=== PATIENT | female | born 1950 | race Caucasian/White ===

== ENCOUNTER 2018-04-05 07:18 | Day surgery (SDC) | payer MEDICARE, OTHER, SELFPAY ==
--- NOTE | 2018-04-05 | PATH_ITS ---
[facility] Accession Number: [id number] . 01 Material submitted: . PART A: DUODENAL BIOPSY PART B: ANTRUM BIOPSY PART C: GE JUNCTION BIOPSY PART D: GASTRIC POLYP PART E: GASTRIC CARDIA BIOPSY . 02 Diagnosis: A. Duodenum, Biopsy: Duodenal mucosa with focal foveolar metaplasia, consistent with peptic duodenitis. Negative for active inflammation, features of sprue, dysplasia or malignancy. . B. Antrum, Biopsy: Gastric antral mucosa with no diagnostic abnormality. No evidence of Helicobacter organisms on H/E stain. Negative for intestinal metaplasia, dysplasia or malignancy. . C. Gastroesophageal Junction, Biopsy: Squamocolumnar junctional mucosa with no diagnostic abnormality. Negative for intestinal metaplasia, dysplasia or malignancy. . D. Gastric Polyp, Biopsy: Hyperplastic gastric polyp. No evidence of Helicobacter organisms on H/E stain. Negative for intestinal metaplasia, dysplasia or malignancy. . E. Gastric Cardia, Biopsy: Gastric oxyntic mucosa with no diagnostic abnormality. No evidence of Helicobacter organisms on H/E stain. Negative for intestinal metaplasia, dysplasia or malignancy. [facility]04/06/2018 . 02 Electronically signed: . Gil Pool MD, PhD, Pathologist NPI- [id number] . 01 Gross description: . Received are five formalin-filled containers, each labeled with the patient's name: . A. In a container labeled duodenal, the specimen consists of a 0.2 cm portion of tissue, entirely submitted in cassette A. B. In a container labeled antrum, the specimen consists of two 0.1-0.2 cm portions of tissue, entirely submitted in cassette B. C. In a container labeled GE junction, the specimen consists of three less than 0.1 cm to 0.1 cm portions of tissue, entirely submitted in cassette C. D. In a container labeled gastric polyp EGD, the specimen consists of two 0.2-0.3 cm portions of tissue, entirely submitted in cassette D. E. In a container labeled gastric cardia EGD, the specimen consists of a 0.3 cm portion of tissue, entirely submitted in cassette E. ([id number]) /FRR . 02 Pathologist provided ICD-10: K31.7, K29.80, K21.9 . 02 CPT . 498094, 688625, 845186, [id number], [id number] Performed at: 01 [facility] [address] [place] [address], [place], [place] [id number] MD Jose Ness MD Phone: [phone] Performed at: [address] [place] [id number] MD Fidel Martinez MD Phone: [phone]
[2018-04-05 07:45] VITALS: BP 137/94; PULSE 83; RESP 16; TEMP 36.4; O2SAT 92; BMI 40.8
[2018-04-05] MEDS: SODIUM CHLORIDE 0.9% 1,000 ML 200 ML IV (08:30)
--- NOTE | 2018-04-05 08:38 | PM.HP.1 ---
History of Present Illness Date Patient Seen: 04/05/18 Time Patient Seen: 08:38 Chief complaint: EGD COLONOSCOPY [id number] Narrative: Very pleasant 67-year-old lady with a history of Nelson's esophagus. She has had more hoarseness over the last several months. She is due for repeat Nelson's surveillance and we also need to evaluate the change in her voice. Additionally, she is due for screening colonoscopy. Patient History Surgical History History of third molar tooth extraction Status post delivery Status post colonoscopy Status post tonsillectomy and adenoidectomy Family & Social History Family History: Reviewed 04/05/18 by Cecilia Grider MD Social History: household members spouse Meds Home Medications Medication Instructions Recorded Confirmed Type ibuprofen [Advil] 400 mg PO BID #120 tab 05/26/17 Rx [Shingrix] 1 dose IM #1 dose 10/06/17 Rx pneumoc 13-luis conj-dip cr(PF) 0.5 ml IM X1 #1 ea 10/06/17 Rx [Prevnar 13 (PF)] [LIDO VISC/MAALOX 1:1] 5 ml OR QIDP PRN #200 ml 12/12/17 Rx hydrocodone-acetaminophen [[place]] 1 - 2 tab PO BID #60 tab 12/12/17 Rx cyclobenzaprine 10 mg PO QHS #30 tab 12/29/17 Rx gabapentin 800 mg PO TID #90 tab 01/16/18 Rx esomeprazole magnesium [Nexium] 40 mg PO BID #180 cap 02/13/18 Rx duloxetine 30 mg PO BID 04/05/18 04/05/18 History metoprolol tartrate 25 mg PO DAILY 04/05/18 04/05/18 History Allergies Allergy/AdvReac Type Severity Reaction Status Date / Time diphenhydramine AdvReac Severe severe Unverified 01/31/18 13:11 [DIPHENHYDRAMINE] anxiety. jittery, increase pulse Review of Systems Review of Systems All systems reviewed & are unremarkable except as noted in HPI and below Exam Vital Signs (past 8 hours): Vital Signs - 8 hr 04/05/18 07:45 Temperature 97.6 F Pulse Rate 83 Respiratory Rate 16 Blood Pressure 137/94 H Pulse Oximetry 92 Pulse Oximetry 92 Oxygen Delivery Method Room Air Narrative Exam Narrative: Very pleasant lady in no significant distress HEENT normocephalic and atraumatic, pupils equal round reactive to light accommodation with anicteric sclera Lungs: Clear to auscultation bilaterally Heart: Regular rate and rhythm without murmur Abdomen: Soft, obese, active bowel sounds Extremities: Warm and well perfused with 1+ edema bilaterally Assessment & Plan Plan: Assessment/Plan Narrative: Personal history of Nelson's esophagus and time for an [facility] screening colonoscopy. This is in the setting recent changes in voice. We discussed the risks and benefits of EGD and colonoscopy and the patient has expressed desire to have the procedure
--- NOTE | 2018-04-05 08:41 | P.HP_ITS ---
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 She has had more hoarseness over the last several months. She is due for repeat Nelson's surveillance and we also need to evaluate the change in her voice. Additionally, she is due for screening colonoscopy. Patient History Surgical History History of third molar tooth extraction Status post delivery Status post colonoscopy Status post tonsillectomy and adenoidectomy Family & Social History Family History: Reviewed 04/05/18 by Cecilia Grider MD Social History: household members spouse Meds Home Medications Medication Instructions Recorded Confirmed Type ibuprofen [Advil] 400 mg PO BID #120 tab 05/26/17 Rx [Shingrix] 1 dose IM #1 dose 10/06/17 Rx pneumoc 13-luis conj-dip cr(PF) 0.5 ml IM X1 #1 ea 10/06/17 Rx [Prevnar 13 (PF)] [LIDO VISC/MAALOX 1:1] 5 ml OR QIDP PRN #200 ml 12/12/17 Rx hydrocodone-acetaminophen [[place]] 1 - 2 tab PO BID #60 tab 12/12/17 Rx cyclobenzaprine 10 mg PO QHS #30 tab 12/29/17 Rx gabapentin 800 mg PO TID #90 tab 01/16/18 Rx esomeprazole magnesium [Nexium] 40 mg PO BID #180 cap 02/13/18 Rx duloxetine 30 mg PO BID 04/05/18 04/05/18 History metoprolol tartrate 25 mg PO DAILY 04/05/18 04/05/18 History Allergies Allergy/AdvReac Type Severity Reaction Status Date / Time diphenhydramine AdvReac Severe severe Unverified 01/31/18 13:11 [DIPHENHYDRAMINE] anxiety. jittery, increase pulse Review of Systems Review of Systems All systems reviewed & are unremarkable except as noted in HPI and below Exam Vital Signs (past 8 hours): Vital Signs - 8 hr 3 04/05/18 07:45 Temperature 97.6 F Pulse Rate 83 Respiratory Rate 16 Blood Pressure 137/94 H Pulse Oximetry 92 Pulse Oximetry 92 Oxygen Delivery Method Room Air Narrative Exam Narrative: Very pleasant lady in no significant distress HEENT normocephalic and atraumatic, pupils equal round reactive to light accommodation with anicteric sclera Lungs: Clear to auscultation bilaterally Heart: Regular rate and rhythm without murmur Abdomen: Soft, obese, active bowel sounds Extremities: Warm and well perfused with 1+ edema bilaterally Assessment & Plan Plan: Assessment/Plan Narrative: Personal history of Nelson's esophagus and time for an [facility] screening colonoscopy. This is in the setting recent changes in voice. We discussed the risks and benefits of EGD and colonoscopy and the patient has expressed desire to have the procedure
[2018-04-05] MEDS: MIDAZOLAM 5 MG/5 ML VIAL IV (08:50)
[2018-04-05] MEDS: fentaNYL 250 MCG/5 ML INJ IV (08:50)
[2018-04-05] MEDS: TETRACAINE/BENZOCAINE/BUTAMBEN (CETACAINE) BOTTLE 1 SPRAY TOP (08:52)
[2018-04-05] MEDS: LIDOCAINE 4% SOLN 50 ML 20 ML TOP (08:53)
--- NOTE | 2018-04-05 09:22 | PM.OP.1 ---
Operative Date/Time/Diagnoses - Date of procedure: 04/05/18 Time of procedure: 09:22 Pre-op diagnosis: Nelson's esophagus Screening colonoscopy Voice changes Post-op diagnosis: same Procedure & Clinicians Procedure: Esophagogastroduodenoscopy with biopsies and colonoscopy to the cecum Same procedure as scheduled: Yes Indications: Last colonoscopy 10 years ago Surgeon: Cecilia Grider Click Yes if Unassisted: Yes Anesthesia Type: Sedation Operative Notes Findings: 1. Normal duodenum 2. Mild antral gastritis 3. Single sessile polyp identified in the antrum of the stomach 4. Hyper glandular tissue noted in the cardia 5. GE junction at 40 cm from the incisors-mildly irregular and consistent with Nelson's changes 6. Excellent prep 7. No polyps or mass lesions 8. No AV malformations 9. Very minimal diverticulosis in the sigmoid region 10. Grade 1-2 internal hemorrhoids 11. Normal appearing vocal cords with mild erythema of the surrounding pharyngeal mucosa Closure Type: not applicable Specimen(s): none sent (1. Duodenum, 2. Antrum, 3. Antral polyp, 4. Cardia, 5. GE junction) Estimated Blood Loss (mL): 2 Procedure in detail: After obtaining informed consent, the patient was brought to the GI suite and placed in the left lateral decubitus position on the examination table. After placement of appropriate monitors, the patient was given incremental doses of Versed and Fentanyl until an appropriate level of sedation was achieved. A time out was held per SCOAP protocol. We began with EGD. A bite block was gently placed between the patient's teeth. The endoscope was lubricated and then passed into the patient's posterior oropharynx. The esophagus was cannulated under direct vision and the scope was passed to the second portion of the duodenum without difficulty. The scope was then withdrawn with careful examination of all areas of the upper GI tract and mucosa. In the stomach, the instrument was retroflexed and the GE junction examined. The scope was straightened and the procedure continued with examination of the remainder of the upper GI tract. Findings are noted above. Air was aspirated from the stomach and the endoscope gently removed from the esophagus. The examination table was turned and we continued with the colonoscopy. A digital rectal examination was performed and did not reveal any masses or obstructing lesions. The colonoscope was gently passed into the patient's anus and the entire colon navigated to the level of the cecum with minimal difficulty. Once in the cecum, the scope was withdrawn being sure to go before and beyond all mucosal folds and prominences and get an excellent examination. The findings are noted above. At the level of the rectal vault, the scope was retroflexed and the internal anal canal was examined. The scope was straightened and air aspirated from the colon. The instrument was removed from the patient's body and the procedure was concluded. The patient was allowed to awaken from sedation without difficulty and taken to the post-anesthesia care unit in good condition. Total sedation time 34 min Total colonoscopy withdrawal time 9 min Complications: none Condition: stable Disposition: PACU Plan for aftercare: 1. Discharge to home 2. We will contact you with pathology results and any further recommendations
[2018-04-05 09:25] VITALS: BP 119/77; PULSE 89; RESP 16; TEMP 36.3; O2SAT 94
[2018-04-05 09:35] VITALS: BP 141/84; PULSE 89; RESP 16; O2SAT 92
[2018-04-05 09:42] VITALS: BP 139/96; PULSE 96; RESP 17; TEMP 36.3; O2SAT 96
[2018-04-05 09:49] VITALS: BP 126/86; PULSE 89; RESP 16; TEMP 36.3; O2SAT 96
[2018-04-05 10:12] VITALS: BP 125/87; PULSE 87; RESP 16; TEMP 36.6; O2SAT 95
== END 2018-04-05 10:18 | disposition home or self-care (01) ==
PROVIDERS: Family Provider Family Medicine; PCP Family Medicine; Visit Provider Surgery
PROC: 0DJ08ZZ Inspection of Upper Intestinal Tract, Via Natural or Artificial Opening Endoscopic (ICD-10-PCS; CPT 43235; principal; 2018-04-05 07:45)
PROC: 0DJD8ZZ Inspection of Lower Intestinal Tract, Via Natural or Artificial Opening Endoscopic (ICD-10-PCS; CPT 45378; 2018-04-05 07:45)
DX: Z12.11 Encounter for screening for malignant neoplasm of colon (principal); R49.0 Dysphonia; K31.7 Polyp of stomach and duodenum; K29.80 Duodenitis without bleeding; K21.9 Gastro-esophageal reflux disease without esophagitis; K57.30 Diverticulosis of large intestine without perforation or abscess without bleeding; K64.1 Second degree hemorrhoids; K29.70 Gastritis, unspecified, without bleeding
CPT/HCPCS: 43239; G0121; 99152; 99153; J2250; J3010

== ENCOUNTER → 2018-06-01 13:47 | Outpatient (CLI) | payer MEDICARE, OTHER, SELFPAY ==
--- NOTE | 2018-06-01 13:49 | DI.MG.S_ITS ---
BILATERAL DIGITAL SCREENING MAMMOGRAM 3D/2D WITH CAD: 06/01/2018 CLINICAL: Routine screening. Comparison is made to exams dated: 04/14/2017 mammogram, 03/11/2016 mammogram, and 02/24/2015 mammogram - [facility]. The tissue of both breasts is predominantly fatty. Current study was also evaluated with a Computer Aided Detection (CAD) system. No significant masses, calcifications, or other findings are seen in either breast. There has been no significant interval change. IMPRESSION: NEGATIVE There is no mammographic evidence of malignancy. A 1 year screening mammogram is recommended. This exam was interpreted at Station ID: [id number]. NOTE: For mammograms, a report in lay terms will be sent to the patient. Approximately 15% of breast malignancies will not be visualized mammographically. In the management of a palpable breast mass, a negative mammogram must not discourage biopsy of a clinically suspicious lesion. Electronically Signed By: Sandra cantu/miguel:06/01/2018 14:36:56 copy to: Brigida Muse letter sent: Normal Exam ACR BI-RADS Category 1: Negative 3341F
== END ==
PROVIDERS: Family Provider Family Medicine; PCP Family Medicine; Visit Provider Family Medicine
DX: Z12.31 Encounter for screening mammogram for malignant neoplasm of breast (principal)
CPT/HCPCS: 77063; 77067

== ENCOUNTER → 2018-10-19 11:40 | Outpatient (CLI) | payer MEDICARE, OTHER, SELFPAY ==
[2018-10-19 12:38] LABS: Add Manual Diff / Slide Review NO; Basophils Percent Auto 0.9 % (0-2); Eosinophils Percent Auto 4.2 % (2-4); Hematocrit 45.9 % (36-46); Hemoglobin 15.9 g/dL (12.0-16.0); Lymphocytes Percent Auto 30.9 % (25-40); Mean Corpuscular HGB Conc 34.7 % (30-36); Mean Corpuscular Hemoglobin 32.3 PG (26-34); Monocytes Percent Auto 6.9 % (3-14); Neutrophils Absolute Auto 5300 /uL (1500-7000); Neutrophils Percent Auto 57.1 % (50-75); Platelet Count 322 X10^3/uL (150-400); Red Blood Cell Count 4.94 X10^6/uL (4.0-5.2); Red Cell Distribution Width 13.4 % (11.6-14.8); White Blood Cell Count 9.3 X10^3/uL (4.5-11.0)
[2018-10-19 13:03] LABS: Alanine Aminotransferase 47 IU/L (9-52); Albumin 4.6 g/dL (3.5-5.0); Albumin Globulin Ratio 1.4 (1.0-2.8); Alkaline Phosphatase 92 U/L (38-126); Aspartate Aminotransferase 52 IU/L (14-36); Bilirubin Total 0.7 mg/dL (0.2-1.3); Blood Urea Nitrogen 11 mg/dL (7-17); Calcium 9.5 mg/dL (8.4-10.2); Carbon Dioxide 26 mmol/L (22-32); Chloride 103 mmol/L (98-107); Cholesterol 187 mg/dL (140-199); Estimated Glomerular Filt Rate 55.1 mL/min (>60); Globulin 3.4 g/dL (1.7-4.1); Glucose 103 mg/dL (80-110); HDL Cholesterol 34 mg/dL (40-60); HEMOLYSIS < 15 (0-50); LDL Cholesterol Calculated 126 mg/dL (<100); Potassium 4.2 mmol/L (3.4-5.1); Sodium 144 mmol/L (137-145); Triglycerides 136 mg/dL (35-150)
[2018-10-19 13:46] LABS: Thyroid Stimulating Hormone 2.07 uIU/mL (0.47-4.68)
== END ==
PROVIDERS: PCP Family Medicine; Visit Provider Family Medicine
DX: E78.5 Hyperlipidemia, unspecified (principal); I10 Essential (primary) hypertension; E66.01 Morbid (severe) obesity due to excess calories
CPT/HCPCS: 36415; 80053; 80061; 84443; 85025

== ENCOUNTER → 2019-01-10 12:51 | Outpatient (CLI) | payer MEDICARE, OTHER, SELFPAY ==
--- NOTE | 2019-01-10 12:56 | DI.US.S_ITS ---
LIMITED ULTRASOUND OF RIGHT BREAST: 01/10/2019 CLINICAL: Palpable right breast lumps. Patient reports severe trauma to the right breast approximately 2 months prior, per technologist. Comparison is made to exams dated: 01/10/2019 mammogram, 06/01/2018 mammogram, 04/14/2017 mammogram, 03/11/2016 mammogram, 02/24/2015 mammogram, and 01/24/2014 mammogram - [facility]. Color flow and real-time ultrasound of the right breast 1-4 o'clock region were performed. Draper scale images of the real-time examination were reviewed. Targeted ultrasound was performed of the areas of indicated patient concern. At the site of the patient's first probable abnormality in the right breast at 1:30 position 5 cm from the nipple there are multiple oval well-circumscribed heterogeneously hypoechoic masses which demonstrate no vascularity on Doppler ultrasound, with the largest measuring 1.2 x 0.9 x 0.5 cm. At the site of the patient's second palpable concern there is a 0.6 x 0.7 x 0.7 cm oval indistinct hypoechoic mass with mild posterior shadowing and no vascularity on Doppler ultrasound. At the site of the patient's third palpable concern in the right breast at 3:30 position 5 cm from the nipple there is no underlying mass or abnormality. IMPRESSION: PROBABLY BENIGN Multiple hypoechoic masses within the right breast at 1:30 position 5 cm from the nipple and 2:00 position 2 cm from the nipple corresponding to the areas of patient's palpable concern, and most consistent with sequela of fat edema/necrosis with possible developing oil cysts. Clinical follow-up is recommended for further evaluation and management of symptoms. A followup diagnostic mammogram and ultrasound in 6 months is recommended to demonstrate stability and to exclude the possibility of malignancy. Patient is advised to monitor her breasts and return sooner should anything grow or change. This exam was interpreted at Station ID: [id number]. Electronically Signed By: Chase Ashley M.D. ecl/:01/10/2019 15:48:21 copy to: Brigida Muse letter sent: Followup Recommended Ultrasound BI-RADS: 3 Probably benign
--- NOTE | 2019-01-10 12:56 | DI.MG.S_ITS ---
UNILATERAL RIGHT DIGITAL DIAGNOSTIC MAMMOGRAM 3D/2D: 01/10/2019 CLINICAL: Right breast trauma. Comparison is made to exams dated: 06/01/2018 mammogram, 04/14/2017 mammogram, and 03/11/2016 mammogram - [facility]. There are scattered fibroglandular elements in right breast. There are multiple triangular markers overlying the skin of the right breast at the sites of the patient's reported focal palpable abnormalities. There is no underlying mammographic abnormalities. There are circular mole markers overlying the right breast. IMPRESSION: INCOMPLETE: NEEDS ADDITIONAL IMAGING EVALUATION No mammographic abnormalities to correlate with the sites of the patient's reported focal palpable abnormalities. Targeted diagnostic ultrasound recommended for further evaluation, which will be performed immediately following this exam. This exam was interpreted at Station ID: [id number]. NOTE: For mammograms, a report in lay terms will be sent to the patient. Approximately 15% of breast malignancies will not be visualized mammographically. In the management of a palpable breast mass, a negative mammogram must not discourage biopsy of a clinically suspicious lesion. Electronically Signed By: Chase Ashley M.D. ecl/:01/10/2019 14:46:02 copy to: Brigida Muse letter sent: Additional Imaging Needed ACR BI-RADS Category 0: Incomplete 3340F
== END ==
PROVIDERS: PCP Family Medicine; Visit Provider Family Medicine
DX: R92.8 Other abnormal and inconclusive findings on diagnostic imaging of breast (principal); S20.01XA Contusion of right breast, initial encounter; N63.12 Unspecified lump in the right breast, upper inner quadrant
CPT/HCPCS: 76642; 77065; G0279

== ENCOUNTER 2019-01-22 14:27 | Emergency (ER) | payer MEDICARE, OTHER, SELFPAY ==
[2019-01-22 14:50] VITALS: BP 159/85; PULSE 77; RESP 20; TEMP 36.9; O2SAT 93
--- NOTE | 2019-01-22 16:25 | DI.CT.S_ITS ---
PROCEDURE: CT HEAD/BRAIN WO CON INDICATIONS: not on thinners / fall , hit face. TECHNIQUE: Noncontrast 4.5 mm thick angled axial sections acquired from the foramen magnum to the vertex, with coronal and sagittal reformats. For radiation dose reduction, the following was used: automated exposure control, adjustment of mA and/or kV according to patient size. COMPARISON: None. FINDINGS: Image quality: Excellent. CSF spaces: Basal cisterns are patent. No extra-axial fluid collections. The ventricles are symmetric in size and shape. Brain: No intracranial bleeds or masses. There is cerebral volume loss for age, with resultant ventricular and sulcal prominence. There are periventricular and deep white matter chronic small vessel ischemic changes. There is intracranial internal carotid artery atherosclerosis. Skull and face: There is a left anterior temporal scalp hematoma seen. There is an apparent minimally displaced fracture seen of the roof of the left orbit, yet this is not well-seen. Sinuses: Visualized sinuses and mastoids are clear. IMPRESSION: Left anterior epidural scalp hematoma, with apparent minimally displaced left superior orbital fracture. The fracture is not well-seen. Please consider a dedicated orbits protocol CT for further evaluation. No acute intracranial hemorrhage or other acute intracranial abnormality is detected. Note: Findings and recommendations discussed by telephone with THOMPSON Nava at 1703 hrs. [place] time on January 22, 2019. Dictated by: Pedro Iglesias M.D. on 01/22/2019 at 16:00 Approved by: Pedro Iglesias M.D. on 01/22/2019 at 16:04
--- NOTE | 2019-01-22 17:12 | DI.CT.S_ITS ---
PROCEDURE: CT ORBIT BI WO CON INDICATIONS: Possible fracture seen on head CT TECHNIQUE: Noncontrast 2.5 mm axial images acquired through the orbits, with coronal and sagittal reformats. For radiation dose reduction, the following was used: automated exposure control, adjustment of mA and/or kV according to patient size. COMPARISON: [facility], RG, CT SINUS INTERMEDIATE, 12/13/2005, 10:01. [facility], CT, CT HEAD/BRAIN WO CON, 01/22/2019, 16:44. FINDINGS: Image quality: Excellent. There is a left temporal scalp hematoma again seen. Orbits: Globes are symmetrical. No metallic foreign bodies. The optic nerves are normal in size. No retrobulbar masses or fat abnormalities. The extra-ocular muscles are normal and symmetrical in appearance. Lacrimal glands are normal in size. Optic chiasm is normal. Intracranial: Visualized portions of the cerebral hemispheres, brainstem, and spinal cord are normal. Bones and sinuses: Visualized calvarium and facial bones appear intact. Visualized sinuses and mastoids are clear. IMPRESSION: The apparent left superior orbital fracture seen on the PET/CT performed earlier in the day is not substantiated on this study. No definite fractures are seen. Left temporal scalp hematoma again seen. Dictated by: Pedro Iglesias M.D. on 01/22/2019 at 16:51 Approved by: Pedro Iglesias M.D. on 01/22/2019 at 17:02
--- NOTE | 2019-01-22 17:13 | ED.FALL ---
HPI - Fall <THOMPSON Nava - Last Filed: 01/22/19 21:25> General Chief Complaint: Fall Stated Complaint: FALL SWELLING OF LEFT EYE Time Seen by Provider: 01/22/19 16:01 Source: patient Mode of arrival: ambulatory Limitations: no limitations History of Present Illness HPI Narrative: 68-year-old female with history of fibromyalgia as nonsmoker for complaint of swelling and pain into the left side of her forehead and to her left eyebrow area. She states she had a ground level fall 2 days ago where she hit her left side of her head. On a corner of a table. She denies any loss of consciousness. No nausea vomiting. She reports she still has pain to the area after a couple of days. She reports he has bruising to the area that has gone into the eye area. She denies any vision changes. She is ambulatory in the emergency room. Denies being on any blood thinners. No other concerns or complaints at this time frame. MD complaint: fall Related Data Previous Rx's Medication Instructions Recorded [LIDO VISC/MAALOX 1:1] 5 ml OR QIDP PRN #200 ml 12/12/17 Disabled Parking Pass #1 ea 06/06/18 diphenoxylate-atropine 2.5 1 tab PO Q6-8H PRN #120 tab 07/04/18 mg-0.025 mg tablet duloxetine 30 mg capsule,delayed 30 mg PO BID #180 cap 07/04/18 release esomeprazole magnesium 40 mg 40 mg PO BID #180 cap 07/04/18 capsule,delayed release gabapentin 800 mg tablet 800 mg PO TID #270 tab 07/04/18 metoprolol tartrate 25 mg tablet 25 mg PO DAILY #90 tab 07/04/18 adjuvant AS01B (PF), component 0.5 ml IM ONCE #0.5 ml 11/16/18 vial 1 of 2 intramuscular suspension hydrocodone 5 mg-acetaminophen 325 1 - 2 tab PO BID #60 tab 11/16/18 mg tablet cyclobenzaprine 10 mg tablet 10 mg PO QHS #30 tab 12/05/18 Allergies Allergy/AdvReac Type Severity Reaction Status Date / Time diphenhydramine AdvReac Severe severe Verified 11/16/18 12:25 [DIPHENHYDRAMINE] anxiety. jittery, increase pulse Review of Systems <THOMPSON Nava - Last Filed: 01/22/19 21:25> Constitutional Denies chills, Denies fever(s), Denies lethargy and Denies weakness Eyes Denies change in vision, Denies eye discharge, Denies irritation and Denies loss of vision ENT Ears, Nose, Mouth, and Throat: Denies change in voice, Denies neck pain and Denies sore throat Cardiovascular Denies chest pain, Denies irregular heart rhythm, Denies lightheadedness, Denies palpitations, Denies dyspnea, Denies dyspnea on exertion and Denies orthopnea Respiratory Denies cough, Denies dyspnea, Denies dyspnea on exertion and Denies wheezing Gastrointestinal Gastrointestinal: Denies abdominal pain, Denies change in bowel habits, Denies diarrhea, Denies nausea and Denies vomiting Genitourinary Denies hematuria, Denies flank pain, Denies urinary incontinence and Denies urinary urgency Musculoskeletal Denies neck pain Neurologic Denies confusion, Denies loss of vision and Denies weakness Comments: Ground level fall hitting left forehead Psychiatric Denies anxiety, Denies confusion, Denies depression, Denies homicidal ideation and Denies suicidal ideation Endocrine Denies palpitations Hematologic/Lymphatic Denies easy bruising Allergic/Immunologic Denies wheezing Exam <THOMPSON Nava - Last Filed: 01/22/19 21:25> Initial Vital Signs Initial Vital Signs: Vital Signs Temperature 98.5 F 01/22/19 14:50 Pulse Rate 77 01/22/19 14:50 Respiratory Rate 20 01/22/19 14:50 Blood Pressure 159/85 H 01/22/19 14:50 Pulse Oximetry 93 01/22/19 14:50 Const General: cooperative and well developed Nutritional Appearance: well nourished Orientation: alert, awake, oriented x3 and not confused [facility] Head: normocephalic, No Wade's sign, contusion, hematoma, No laceration, No palpable skull fracture and No raccoon eyes Mouth: oral mucosae normal and moist mucous membranes Throat: posterior oropharynx normal Eyes Conjunctivae: conjunctivae normal Sclera: sclerae normal Pupils: PERRL EOM: EOM intact bilaterally Resp Effort & Inspection: normal respiratory effort, able to speak in complete sentences, no respiratory distress and no use of accessory muscles Auscultation: clear to auscultation bilaterally, no rales, no rhonchi and no wheezes Cardio Rate: regular rate Rhythm: regular rhythm Heart Sounds: no click, no gallops, no murmurs and no rubs Skin General: no rashes or lesions noted, No jaundice and No petechiae Neuro General: alert, oriented x3, gait normal and no focal motor deficits Speech: speech normal <Chester Zaragoza DO - Last Filed: 01/22/19 23:55> Initial Vital Signs Initial Vital Signs: Vital Signs Temperature 98.5 F 01/22/19 14:50 Pulse Rate 77 01/22/19 14:50 Respiratory Rate 20 01/22/19 14:50 Blood Pressure 159/85 H 01/22/19 14:50 Pulse Oximetry 93 01/22/19 14:50 PFSH <THOMPSON Nava - Last Filed: 01/22/19 21:25> Medical History Anxiety (Chronic Unknown) Nelson's esophagus (Chronic Unknown) Chronic fatigue (Chronic Unknown) Depression (Chronic Unknown) Fibromyalgia (Chronic Unknown) GERD (gastroesophageal reflux disease) (Chronic Unknown) Herpes (Chronic Unknown) Hypertension (Chronic Unknown) IBS (irritable bowel syndrome) (Chronic Unknown) Obstructive sleep apnea (Chronic Unknown) Osteoporosis (Chronic Unknown) Surgical History Hx of hysterectomy (Acute Unknown) History of hip surgery (Resolved Unknown) History of total left hip replacement (Resolved Unknown) History of total right hip replacement (Resolved Unknown) History of third molar tooth extraction Status post delivery Status post colonoscopy Status post tonsillectomy and adenoidectomy Family History Brother Congestive heart failure Father History of heart valve replacement Mother Diabetes mellitus Social History household members: spouse Smoking Status: Former smoker alcohol intake: current Family History Brother Congestive heart failure Father History of heart valve replacement Mother Diabetes mellitus Social History household members: spouse Smoking Status: Former smoker alcohol intake: current Course <THOMPSON Nava - Last Filed: 01/22/19 21:25> Orders Ordered: ED Orders 01/22/19 16:25 CT head/brain wo con Stat 01/22/19 17:12 CT orbit BI wo con Stat Discontinued Medications Ibuprofen (Advil) 800 mg PO NOW ONE Stop: 01/22/19 18:38 Last Admin: 01/22/19 18:40 Dose: 800 mg Vital Signs - 8 hr 01/22/19 18:39 Pulse Rate 88 Respiratory Rate 14 Blood Pressure [Left Arm] 121/78 Pulse Oximetry 95 <Chester Zaragoza DO - Last Filed: 01/22/19 23:55> Orders Ordered: ED Orders 01/22/19 16:25 CT head/brain wo con Stat 01/22/19 17:12 CT orbit BI wo con Stat Discontinued Medications Ibuprofen (Advil) 800 mg PO NOW ONE Stop: 01/22/19 18:38 Last Admin: 01/22/19 18:40 Dose: 800 mg Vital Signs - 8 hr 01/22/19 18:39 Pulse Rate 88 Respiratory Rate 14 Blood Pressure [Left Arm] 121/78 Pulse Oximetry 95 MDM - Fall <THOMPSON Nava - Last Filed: 01/22/19 21:25> MDM Narrative Medical decision making narrative: CT scan of the head was obtained and was negative for any acute intracranial findings. There was a possible fracture to the left orbit. Orbit CT was requested. Orbit CT was ordered and was negative for any acute fractures. Signs and symptoms present as contusion to left forehead area minor head injury. [id number] Tylenol Motrin as needed for any discomfort. Follow up with primary care provider. Head injury instruction provided warning signs return emergency room. For any worsening Manuel symptoms return to the emergency room. Discharge Plan Departure Patient Disposition: Home Clinical Impression: Minor closed head injury Discharge Date/Time: 01/22/19 18:53 Interventions: ED Discharge Assessment Last Done: 01/22/19 18:51 Instructions: DI for Closed Head Injury Activity Restrictions/Additional Instructions: CT scan of the head and orbits was obtained was negative for any acute findings. Signs and symptoms presents as minor head injury and contusion noted to the area. Use [id number] Tylenol or Motrin as needed for any discomfort. May use ice to area to help with any swelling. Follow up with her primary care provider. Return emergency room for any worsening symptoms. Prescriptions: No Action diphenoxylate-atropine [Lomotil] 2.5-0.025 mg tablet 1 tab PO Q6-8H PRN (Reason: diarrhea) Qty: 120 RF: 0 duloxetine 30 mg capsule,delayed release(DR/EC) 30 mg PO BID Qty: 180 RF: 3 esomeprazole magnesium [Nexium] 40 mg capsule,delayed release(DR/EC) 40 mg PO BID Qty: 180 RF: 3 gabapentin 800 mg tablet 800 mg PO TID Qty: 270 RF: 3 metoprolol tartrate 25 mg tablet 25 mg PO DAILY Qty: 90 RF: 3 adjuvant AS01B (PF)vial 1 of 2 [Shingrix Adjuvant Component-PF] suspension 0.5 ml IM ONCE Qty: 0.5 RF: 0 hydrocodone-acetaminophen [Adamant] 5-325 mg tablet 1 - 2 tab PO BID Qty: 60 RF: 0 [LIDO VISC/MAALOX 1:1] 5 ml OR QIDP PRNQty: 200 RF: 3 Disabled Parking Pass Qty: 1 RF: 0 cyclobenzaprine 10 mg tablet 10 mg PO QHS Qty: 30 RF: 3 Referrals: Brigida Muse DO [Primary Care Provider] - <Chester Zaragoza DO - Last Filed: 01/22/19 23:55> Cosign ED Attending Cosmartinature Attestation: I was immediately available in the department for consultation. Documentation has been reviewed. I agree with assessment and plan.
[2019-01-22 18:39] VITALS: BP 121/78; PULSE 88; RESP 14; O2SAT 95
[2019-01-22] MEDS: IBUPROFEN 400 MG TABLET 800 MG PO (18:40)
== END 2019-01-22 18:53 | disposition home or self-care (01) ==
PROVIDERS: Emergency Provider Nurse Practitioner Family; PCP Family Medicine
DX: S00.90XA Unspecified superficial injury of unspecified part of head, initial encounter (principal); H57.12 Ocular pain, left eye; W19.XXXA Unspecified fall, initial encounter
CPT/HCPCS: 70450; 70480; 99282; 99284

== ENCOUNTER 2019-05-18 21:52 | Emergency (ER) | payer MEDICARE, OTHER, SELFPAY ==
[2019-05-18 22:00] VITALS: BP 146/83; PULSE 72; RESP 22; TEMP 37.1; O2SAT 97; BMI 48.9
--- NOTE | 2019-05-18 22:03 | DI.RAD.S_ITS ---
PROCEDURE: XR CHEST 1V INDICATIONS: Chest pain TECHNIQUE: One view of the chest was acquired. COMPARISON: None. FINDINGS: Surgical changes and devices: This is a markedly limited study due to patient body habitus. Lungs and pleura: Lung volumes are low. Lungs are clear. No pleural effusions or pneumothorax. Mediastinum: Mediastinal contours appear normal. Heart size is normal. Bones and chest wall: No suspicious bony lesions. Overlying soft tissues appear unremarkable. IMPRESSION: No acute cardiopulmonary findings. Lungs are Dictated by: Sandra Mosley M.D. on 05/19/2019 at 7:14 Approved by: Sandra Mosley M.D. on 05/19/2019 at 7:15
--- NOTE | 2019-05-18 22:28 | ED.SOB ---
HPI - SOB/Dyspnea General Chief Complaint: Shortness of Breath/Dyspnea Stated Complaint: Chest pounding, legs swelling, thinks she has CHF Time Seen by Provider: 05/18/19 22:02 Source: patient Mode of arrival: ambulatory Limitations: no limitations History of Present Illness 68-year-old female here for evaluation of approximately 1 month of shortness of breath. She states it has been worsening over the past week. She has also had off and on chest pain for longer than the past week. She states that her shortness of breath this caused her to not be able to walk as far she normally does. Stated that she cannot lay flat in bed without becoming short of breath. Does have swelling in her lower extremities. Not currently on Lasix. No diagnosis of heart failure. No fevers. No coughing. Related Data Previous Rx's Medication Instructions Recorded [LIDO VISC/MAALOX 1:1] 5 ml OR QIDP PRN #200 ml 12/12/17 Disabled Parking Pass #1 ea 06/06/18 diphenoxylate-atropine 2.5 1 tab PO Q6-8H PRN #120 tab 07/04/18 mg-0.025 mg tablet duloxetine 30 mg capsule,delayed 30 mg PO BID #180 cap 07/04/18 release esomeprazole magnesium 40 mg 40 mg PO BID #180 cap 07/04/18 capsule,delayed release gabapentin 800 mg tablet 800 mg PO TID #270 tab 07/04/18 adjuvant AS01B (PF), component 0.5 ml IM ONCE #0.5 ml 11/16/18 vial 1 of 2 intramuscular suspension cyclobenzaprine 10 mg tablet 10 mg PO QHS #30 tab 12/05/18 hydrocodone 5 mg-acetaminophen 325 1 - 2 tab PO BID #60 tab 02/11/19 mg tablet metoprolol tartrate 25 mg tablet 25 mg PO BID #60 tab 02/19/19 mirtazapine 15 mg tablet 15 mg PO BEDTIME #30 tab 04/15/19 meclizine 25 mg tablet 25 mg PO BID PRN #60 tab 04/24/19 furosemide [Lasix] 40 mg PO DAILY #28 tab 05/19/19 Allergies Allergy/AdvReac Type Severity Reaction Status Date / Time diphenhydramine AdvReac Severe severe Verified 05/18/19 22:15 [DIPHENHYDRAMINE] anxiety. jittery, increase pulse Review of Systems Constitutional Denies fever(s) and Denies headache(s) ENT Ears, Nose, Mouth, and Throat: Denies headache(s) Cardiovascular Reports chest pain, Denies chest pain with activity, Denies diaphoresis, Denies syncope, Denies rapid heart rate, Reports pedal edema, Reports edema, Reports leg edema, Denies palpitations, Reports dyspnea, Reports dyspnea on exertion and Reports orthopnea Respiratory Denies cough, Reports dyspnea and Reports dyspnea on exertion Gastrointestinal Gastrointestinal: Denies abdominal pain, Denies nausea and Denies vomiting Genitourinary Denies dysuria Musculoskeletal Denies myalgias and Denies arthralgias Integumentary/Breasts Denies lesions and Denies rash Neurologic Denies behavioral changes, Denies syncope and Denies headache(s) Psychiatric Denies behavioral changes Endocrine Denies palpitations Hematologic/Lymphatic Denies easy bleeding and Denies easy bruising PFSH Medical History Anxiety (Chronic Unknown) Nelson's esophagus (Chronic Unknown) Chronic fatigue (Chronic Unknown) Depression (Chronic Unknown) Fibromyalgia (Chronic Unknown) GERD (gastroesophageal reflux disease) (Chronic Unknown) Herpes (Chronic Unknown) Hypertension (Chronic Unknown) IBS (irritable bowel syndrome) (Chronic Unknown) Obstructive sleep apnea (Chronic Unknown) Osteoporosis (Chronic Unknown) Social History household members: spouse Smoking Status: Former smoker alcohol intake: current Exam Initial Vital Signs Initial Vital Signs: Vital Signs Temperature 98.7 F 05/18/19 22:00 Pulse Rate 72 05/18/19 22:00 Respiratory Rate 22 05/18/19 22:00 Blood Pressure 146/83 H 05/18/19 22:00 Pulse Oximetry 97 05/18/19 22:00 Const General: cooperative, comfortable, well developed, well groomed and No acute distress Orientation: alert, awake and oriented x3 [facility] Head: normal to inspection and normocephalic Resp Effort & Inspection: normal respiratory effort, no cough, not labored and not tachypneic Auscultation: clear to auscultation bilaterally Cardio Rate: regular rate Rhythm: regular rhythm Skin Lesions: no lesions Rashes: no rashes Neuro General: alert, awake and oriented x3 Cognition: normal cognition Speech: speech normal Gait: normal gait Motor: muscle tone normal throughout Sensory Exam: no sensory deficits noted Extrem General: normal to inspection and edema Psych Appearance: grossly normal and well kempt Course Orders Ordered: ED Orders 05/18/19 22:03 XR chest 1V Stat EKG-12 Lead Stat 05/18/19 22:25 B Type Natriuretic Peptide Stat Complete Blood Count AUTO DIFF Stat Comprehensive Metabolic Panel Stat Lipase Stat Troponin I Stat 05/18/19 23:12 CT angio chest PE protocol Stat Discontinued Medications Furosemide (Lasix) 60 mg IV NOW ONE Stop: 05/18/19 22:35 Last Admin: 05/18/19 22:53 Dose: 60 mg Vital Signs - 8 hr 05/18/19 22:00 05/19/19 01:01 05/19/19 01:35 Temperature 98.7 F Pulse Rate 72 69 69 Respiratory Rate 22 22 21 Blood Pressure 146/83 H Blood Pressure [Left Arm] 100/69 125/86 Pulse Oximetry 97 92 93 MDM - SOB/Dyspnea Lab Data Attestation: I reviewed the patient's lab results. Result diagrams: 05/18/19 22:25 05/18/19 22:25 Lab Results 05/18/19 05/18/19 Range/Units 22:25 22:25 WBC 9.4 (4.5-11.0) X10^3/uL RBC 4.23 (4.0-5.2) X10^6/uL Hgb 13.6 (12.0-16.0) g/dL Hct 39.9 (36-46) % MCV 94.3 (80-100) fL MCH 32.1 (26-34) PG MCHC 34.0 (30-36) % RDW 14.8 (11.6-14.8) % Plt Count 276 (150-400) X10^3/uL Neut % (Auto) 48.1 L (50-75) % Lymph % (Auto) 37.4 (25-40) % Hunt % (Auto) 7.1 (3-14) % Eos % (Auto) 6.4 H (2-4) % Baso % (Auto) 1.0 (0-2) % Neut # (Auto) 4500 (7863-1200) /uL Lymph # (Auto) 3500 (5100-9011) /uL Hunt # (Auto) 700 (0-900) /uL Eos # (Auto) 600 H (0-450) /uL Baso # (Auto) 100 (0-100) /uL Sodium 139 (137-145) mmol/L Potassium 4.0 (3.4-5.1) mmol/L Chloride 103 (98-107) mmol/L Carbon Dioxide 30 (22-32) mmol/L BUN 15 (7-17) mg/dL Creatinine 0.90 (0.52-1.04) mg/dL Estimated GFR > 60.0 (>60) mL/min BUN/Creatinine Ratio 16.7 (6-22) Glucose 106 (80-110) mg/dL Calcium 8.9 (8.4-10.2) mg/dL Total Bilirubin 0.4 (0.2-1.3) mg/dL AST 82 H (14-36) IU/L ALT 59 H (9-52) IU/L Alkaline Phosphatase 89 (38-126) U/L Troponin I < 0.012 (0.01-0.034) ng/mL B-Natriuretic Peptide < 100 (<100) Total Protein 7.1 (6.3-8.2) g/dL Albumin 3.9 (3.5-5.0) g/dL Globulin 3.2 (1.7-4.1) g/dL Albumin/Globulin Ratio 1.2 (1.0-2.8) Lipase 26 (23-300) U/L Imaging Data Chest x-ray: Attestation: I personally reviewed and interpreted this imaging study as follows: My impression: Low lung volumes, no focal consolidation CT scan - chest: Radiologist's impression: Read by real Radiology, no pulmonary embolism ECG Data Attestation: I personally reviewed and interpreted this ECG as follows: Prior ECG tracings: not available for review Interpretation: Sinus rhythm Ventricular rate is 70 Normal axis Normal QRS Normal QTC No ST T wave changes MDM Narrative Medical decision making narrative: Patient was not hypoxic. Not tachypneic. Symptoms have been going on for the past month in worsening over the past week. Her BNP was unremarkable. Her troponin was unremarkable. No focal consolidations on the chest x-ray. No pulmonary embolism or effusions seen on the CTA. She was given Lasix here in the emergency department did urinate quite a bit. States that maybe she felt somewhat better after this. Informed her that she needed to talk with her primary doctor about obtaining a echocardiogram and stress test. I do not feel that she needs admitted to the hospital currently for diuresis. Will send home with a prescription for Lasix. We did discuss return precautions and follow-up instructions. She expressed understanding and agreement with plan. Discharge Plan Departure Patient Disposition: Home Clinical Impression: Peripheral edema, Shortness of breath Discharge Date/Time: 05/19/19 01:45 Interventions: ED Discharge Assessment Last Done: 05/19/19 01:45 Instructions: DI for Peripheral Edema -- Bilateral Activity Restrictions/Additional Instructions: Start taking the Lasix on a daily basis as directed. On Monday contact your primary provider for a follow-up. Return to the emergency department for new symptoms to include chest pain, worsening shortness of breath, worsening swelling, or any other concerning symptoms. Prescriptions: New furosemide [Lasix] 20 mg tablet 40 mg PO DAILY Qty: 28 RF: 0 No Action diphenoxylate-atropine [Lomotil] 2.5-0.025 mg tablet 1 tab PO Q6-8H PRN (Reason: diarrhea) Qty: 120 RF: 0 duloxetine 30 mg capsule,delayed release(DR/EC) 30 mg PO BID Qty: 180 RF: 3 esomeprazole magnesium [Nexium] 40 mg capsule,delayed release(DR/EC) 40 mg PO BID Qty: 180 RF: 3 gabapentin 800 mg tablet 800 mg PO TID Qty: 270 RF: 3 adjuvant AS01B (PF)vial 1 of 2 [Shingrix Adjuvant Component-PF] suspension 0.5 ml IM ONCE Qty: 0.5 RF: 0 [LIDO VISC/MAALOX 1:1] 5 ml OR QIDP PRNQty: 200 RF: 3 Disabled Parking Pass Qty: 1 RF: 0 cyclobenzaprine 10 mg tablet 10 mg PO QHS Qty: 30 RF: 3 metoprolol tartrate 25 mg tablet 25 mg PO BID Qty: 60 RF: 0 mirtazapine 15 mg tablet 15 mg PO BEDTIME Qty: 30 RF: 2 meclizine 25 mg tablet 25 mg PO BID PRN (Reason: dizziness) Qty: 60 RF: 0 hydrocodone-acetaminophen [[place]] 5-325 mg tablet 1 - 2 tab PO BID Qty: 60 RF: 0 Referrals: Almaz,Brigida, DO [Primary Care Provider] -
[2019-05-18 22:36] LABS: Add Manual Diff / Slide Review NO; Basophils Absolute Auto 100 /uL (0-100); Eosinophils Absolute Auto 600 /uL (0-450); Eosinophils Percent Auto 6.4 % (2-4); Hematocrit 39.9 % (36-46); Hemoglobin 13.6 g/dL (12.0-16.0); Lymphocytes Absolute Auto 3500 /uL (1100-4500); Lymphocytes Percent Auto 37.4 % (25-40); Mean Corpuscular Hemoglobin 32.1 PG (26-34); Mean Corpuscular Volume 94.3 fL (80-100); Monocytes Absolute Auto 700 /uL (0-900); Monocytes Percent Auto 7.1 % (3-14); Neutrophils Absolute Auto 4500 /uL (1500-7000); Neutrophils Percent Auto 48.1 % (50-75); Platelet Count 276 X10^3/uL (150-400); Red Blood Cell Count 4.23 X10^6/uL (4.0-5.2); Red Cell Distribution Width 14.8 % (11.6-14.8); White Blood Cell Count 9.4 X10^3/uL (4.5-11.0)
[2019-05-18 22:45] LABS: Alanine Aminotransferase 59 IU/L (9-52); Albumin 3.9 g/dL (3.5-5.0); Albumin Globulin Ratio 1.2 (1.0-2.8); Alkaline Phosphatase 89 U/L (38-126); Aspartate Aminotransferase 82 IU/L (14-36); BUN Creatinine Ratio 16.7 (6-22); Bilirubin Total 0.4 mg/dL (0.2-1.3); Blood Urea Nitrogen 15 mg/dL (7-17); Calcium 8.9 mg/dL (8.4-10.2); Carbon Dioxide 30 mmol/L (22-32); Chloride 103 mmol/L (98-107); Estimated Glomerular Filt Rate > 60.0 mL/min (>60); Globulin 3.2 g/dL (1.7-4.1); Glucose 106 mg/dL (80-110); HEMOLYSIS 21 (0-50); Lipase 26 U/L (23-300); Sodium 139 mmol/L (137-145); Total Protein 7.1 g/dL (6.3-8.2)
[2019-05-18] MEDS: FUROSEMIDE 100 MG/10 ML VIAL 60 MG IV (22:53)
[2019-05-18 22:58] LABS: B Type Natriuretic Peptide < 100 (<100); Troponin I < 0.012 ng/mL (0.01-0.034)
--- NOTE | 2019-05-18 23:12 | DI.CT.S_ITS ---
PROCEDURE: CT ANGIO CHEST PE PROTOCOL INDICATIONS: Chest pain, shortness of breath TECHNIQUE: After the administration of intravenous contrast, 2 mm thick sections acquired from the pulmonary apices to the posterior costophrenic angles. 3-dimensional maximum intensity projection (MIP) coronal and sagittal reformats were then acquired through the thorax. For radiation dose reduction, the following was used: automated exposure control, adjustment of mA and/or kV according to patient size. COMPARISON: None. FINDINGS: Image quality: Excellent. Pulmonary arteries: Pulmonary arteries are normal in size, and demonstrate no intraluminal filling defects to suggest central pulmonary embolism. Lungs and pleura: Lung volumes are low. Lungs are clear. No pleural effusions or pneumothorax. Central and peripheral airways are patent. Mediastinum: Heart size is normal, without pericardial effusion. No mediastinal or hilar adenopathy. Thoracic aorta is normal in caliber and enhancement. Esophagus is normal in caliber, without hiatal hernia. Bones and chest wall: No suspicious bony lesions. Moderate degenerative changes are present throughout the thoracic spine. Ribs and thoracic spine appear intact throughout. Thyroid gland is unremarkable. No axillary or supraclavicular adenopathy. Abdomen: Visualized upper abdominal solid organs appear normal in the early arterial phase of enhancement. IMPRESSION: No acute pulmonary embolus. These findings are concordant with the overnight interpretation. Dictated by: Sandra Mosley M.D. on 05/19/2019 at 7:21 Approved by: Sandra Mosley M.D. on 05/19/2019 at 7:24
[2019-05-19 01:01] VITALS: BP 100/69; PULSE 69; RESP 22; O2SAT 92
[2019-05-19 01:35] VITALS: BP 125/86; PULSE 69; RESP 21; O2SAT 93
== END 2019-05-19 01:45 | disposition home or self-care (01) ==
PROVIDERS: Emergency Provider Emergency Medicine; PCP Family Medicine
DX: R60.9 Edema, unspecified (principal); R06.02 Shortness of breath; R07.9 Chest pain, unspecified
CPT/HCPCS: 36591; 71045; 71275; 80053; 83690; 83880; 84484; 85025; 93005; 96374; 99283; 99285; J1940; Q9967

== ENCOUNTER → 2019-05-31 11:27 | Outpatient (CLI) | payer MEDICARE, OTHER, SELFPAY ==
[2019-05-31 12:04] LABS: BUN Creatinine Ratio 16.7 (6-22); Blood Urea Nitrogen 15 mg/dL (7-17); Calcium 9.4 mg/dL (8.4-10.2); Carbon Dioxide 30 mmol/L (22-32); Chloride 100 mmol/L (98-107); Estimated Glomerular Filt Rate > 60.0 mL/min (>60); Glucose 110 mg/dL (80-110); HEMOLYSIS 15 (0-50); Potassium 4.1 mmol/L (3.4-5.1); Sodium 141 mmol/L (137-145)
[2019-05-31 12:11] LABS: B Type Natriuretic Peptide < 100 (<100)
== END ==
PROVIDERS: PCP Family Medicine; Visit Provider Family Medicine
DX: R06.00 Dyspnea, unspecified (principal); R06.02 Shortness of breath; R60.9 Edema, unspecified
CPT/HCPCS: 36415; 80048; 83880

== ENCOUNTER → 2019-07-18 12:43 | Outpatient (CLI) | payer MEDICARE, OTHER, SELFPAY ==
--- NOTE | 2019-07-18 12:45 | DI.MG.S_ITS ---
BILATERAL DIGITAL DIAGNOSTIC MAMMOGRAM 3D/2D: 07/18/2019 CLINICAL: Short term follow up of the right breast, due for bilateral imaging. Comparison is made to exams dated: 01/10/2019 mammogram, 06/01/2018 mammogram, and 04/14/2017 mammogram - [facility]. The tissue of both breasts is predominantly fatty. No significant masses, calcifications, or other findings are seen in either breast. There has been no significant interval change. IMPRESSION: INCOMPLETE: NEEDS ADDITIONAL IMAGING EVALUATION There is no mammographic evidence of malignancy. A targeted ultrasound of the right breast is recommended to evaluate the hypoechoic masses within the right breast at 1:30 and 2:00 positions described on the previous ultrasound dated 01/10/19, and will be performed immediately following this exam. This exam was interpreted at Station ID: [id number]. NOTE: For mammograms, a report in lay terms will be sent to the patient. Approximately 15% of breast malignancies will not be visualized mammographically. In the management of a palpable breast mass, a negative mammogram must not discourage biopsy of a clinically suspicious lesion. Electronically Signed By: Sandra Mosley M.D. lk/:07/18/2019 13:41:48 copy to: Brigida Muse ACR BI-RADS Category 0: Incomplete [id number]
--- NOTE | 2019-07-18 12:45 | DI.US.S_ITS ---
ULTRASOUND OF RIGHT BREAST: 07/18/2019 CLINICAL: 6 month follow-up. Comparison is made to exams dated: 07/18/2019 mammogram, 01/10/2019 ultrasound, 01/10/2019 mammogram, 06/01/2018 mammogram, 04/14/2017 mammogram, and 03/11/2016 mammogram - [facility]. Ultrasound of the right breast was performed on the areas of interest. Draper scale images of the real-time examination were reviewed. The oval mass in the right breast at 1:30 o'clock posterior depth is not significantly changed. The irregular mass in the right breast at 2 o'clock posterior depth is not significantly changed. IMPRESSION: BENIGN There is no sonographic evidence of malignancy. The oval mass in the right breast at 1 o'clock posterior depth and the irregular mass in the right breast at 2 o'clock posterior depth most likely represent fat necrosis and are benign. A 1 year screening mammogram is recommended. This exam was interpreted at Station ID: [id number]. Electronically Signed By: Sandra cantu/:07/18/2019 16:23:46 copy to: Brigida Muse letter sent: Normal Exam Ultrasound BI-RADS: 2 Benign
== END ==
PROVIDERS: PCP Family Medicine; Visit Provider Family Medicine
DX: R92.8 Other abnormal and inconclusive findings on diagnostic imaging of breast (principal); N63.12 Unspecified lump in the right breast, upper inner quadrant
CPT/HCPCS: 76642; 77066; G0279

== ENCOUNTER → 2019-08-15 11:32 | Outpatient (CLI) | payer MEDICARE, OTHER, SELFPAY ==
--- NOTE | 2019-08-15 11:34 | DI.RAD.S_ITS ---
PROCEDURE: XR CHEST 2V INDICATIONS: cough TECHNIQUE: 2 views of the chest were acquired. COMPARISON: [facility], CR, XR CHEST 1V, 05/18/2019, 22:38. FINDINGS: Surgical changes and devices: None. Lungs and pleura: Scattered subsegmental atelectasis and/or scarring. No focal consolidation. No pleural effusions or pneumothorax. Mediastinum: Mediastinal contours are normal. Heart size is normal. Bones and chest wall: No suspicious bony abnormalities. Soft tissues appear unremarkable. IMPRESSION: No acute disease. Scattered atelectasis. Dictated by: Bernardo Mock M.D. on 08/15/2019 at 16:42 Approved by: Bernardo Mock M.D. on 08/15/2019 at 16:43
[2019-08-15 12:43] LABS: Add Manual Diff / Slide Review NO; Basophils Absolute Auto 100 /uL (0-100); Basophils Percent Auto 0.9 % (0-2); Eosinophils Absolute Auto 500 /uL (0-450); Eosinophils Percent Auto 5.9 % (2-4); Hematocrit 44.5 % (36-46); Hemoglobin 14.8 g/dL (12.0-16.0); Lymphocytes Absolute Auto 2600 /uL (1100-4500); Lymphocytes Percent Auto 32.1 % (25-40); Mean Corpuscular HGB Conc 33.3 % (30-36); Mean Corpuscular Volume 93.3 fL (80-100); Monocytes Absolute Auto 700 /uL (0-900); Monocytes Percent Auto 8.1 % (3-14); Neutrophils Absolute Auto 4300 /uL (1500-7000); Platelet Count 311 X10^3/uL (150-400); Red Blood Cell Count 4.77 X10^6/uL (4.0-5.2); Red Cell Distribution Width 13.9 % (11.6-14.8); White Blood Cell Count 8.1 X10^3/uL (4.5-11.0)
[2019-08-15 13:43] LABS: BUN Creatinine Ratio 17.8 (6-22); Blood Urea Nitrogen 16 mg/dL (7-17); Calcium 9.7 mg/dL (8.4-10.2); Carbon Dioxide 32 mmol/L (22-32); Chloride 97 mmol/L (98-107); Estimated Glomerular Filt Rate > 60.0 mL/min (>60); Glucose 95 mg/dL (80-110); HEMOLYSIS < 15 (0-50); Potassium 4.6 mmol/L (3.4-5.1); Sodium 141 mmol/L (137-145)
== END ==
PROVIDERS: PCP Family Medicine; Visit Provider Hospitalist
DX: R05 Cough (principal); I50.9 Heart failure, unspecified
CPT/HCPCS: 36415; 71046; 80048; 85025

== ENCOUNTER → 2020-07-21 10:50 | Outpatient (CLI) | payer MEDICARE, OTHER, SELFPAY ==
--- NOTE | 2020-07-21 | DI.MG.S_ITS ---
BILATERAL DIGITAL SCREENING MAMMOGRAM 3D/2D WITH CAD: 07/21/2020 CLINICAL: Routine screening. Comparison is made to exams dated: 07/18/2019 mammogram, 01/10/2019 mammogram, 06/01/2018 mammogram, and 04/14/2017 mammogram - [facility]. The tissue of both breasts is predominantly fatty. Current study was also evaluated with a Computer Aided Detection (CAD) system. No significant masses, calcifications, or other findings are seen in either breast. There has been no significant interval change. IMPRESSION: NEGATIVE There is no mammographic evidence of malignancy. A 1 year screening mammogram is recommended. This exam was interpreted at Station ID: [id number]. NOTE: For mammograms, a report in lay terms will be sent to the patient. Approximately 15% of breast malignancies will not be visualized mammographically. In the management of a palpable breast mass, a negative mammogram must not discourage biopsy of a clinically suspicious lesion. Electronically Signed By: Víctor odom/miguel:07/21/2020 11:41:25 letter sent: Normal Exam ACR BI-RADS Category 1: Negative [id number]
== END ==
PROVIDERS: PCP Family Medicine; Referring Provider Family Medicine; Visit Provider Family Medicine
DX: Z12.31 Encounter for screening mammogram for malignant neoplasm of breast (principal)
CPT/HCPCS: 77063; 77067

== ENCOUNTER → 2021-06-29 15:27 | Outpatient (CLI) | payer MEDICARE, OTHER, SELFPAY ==
--- NOTE | 2021-06-29 15:29 | DI.RAD.S_ITS ---
PROCEDURE: XR CHEST 2V INDICATIONS: Progressive exertional fatigue with shortness of breath TECHNIQUE: 2 views of the chest were acquired. COMPARISON: [facility], CR, XR CHEST 2V, 08/15/2019, 11:47. FINDINGS: Surgical changes and devices: None. Lungs and pleura: Mild pulmonary vascular congestion is seen. Increased interstitial reticular markings are noted suggestive of pulmonary edema. Ill-defined airspace opacity in bilateral lower lung garcia are seen concerning for developing bilateral lower lobe infiltrates. No pleural effusions or pneumothorax. Mediastinum: Mediastinal contours are normal. Heart size is enlarged. Bones and chest wall: No suspicious bony abnormalities. Soft tissues appear unremarkable. IMPRESSION: Pulmonary vascular congestion and pulmonary edema. Suggestion of developing bilateral lower lobe infiltrates. No pleural effusion or pneumothorax. Dictated by: Gabo Harrison M.D. on 06/29/2021 at 17:08 Approved by: Gabo Harrison M.D. on 06/29/2021 at 17:10
[2021-06-29 17:14] LABS: Add Manual Diff / Slide Review NO; Basophils Absolute Auto 100 /uL (0-100); Basophils Percent Auto 0.7 % (0-2); Eosinophils Absolute Auto 500 /uL (0-450); Eosinophils Percent Auto 5.1 % (2-4); Hematocrit 38.7 % (36-46); Hemoglobin 12.7 g/dL (12.0-16.0); Lymphocytes Absolute Auto 2900 /uL (1100-4500); Lymphocytes Percent Auto 31.6 % (25-40); Mean Corpuscular HGB Conc 32.8 % (30-36); Mean Corpuscular Hemoglobin 30.1 PG (26-34); Mean Corpuscular Volume 91.7 fL (80-100); Monocytes Absolute Auto 700 /uL (0-900); Monocytes Percent Auto 7.5 % (3-14); Neutrophils Absolute Auto 5000 /uL (1500-7000); Neutrophils Percent Auto 55.1 % (50-75); Platelet Count 218 X10^3/uL (150-400); Red Blood Cell Count 4.22 X10^6/uL (4.0-5.2); Red Cell Distribution Width 15.9 % (11.6-14.8); White Blood Cell Count 9.1 X10^3/uL (4.5-11.0)
[2021-06-29 17:42] LABS: Alanine Aminotransferase 42 IU/L (<35); Albumin Globulin Ratio 1.2 (1.0-2.8); Alkaline Phosphatase 81 U/L (38-126); Aspartate Aminotransferase 62 IU/L (14-36); BUN Creatinine Ratio 17.2 (6-22); Bilirubin Total 0.4 mg/dL (0.2-1.3); Blood Urea Nitrogen 16 mg/dL (7-17); Calcium 9.1 mg/dL (8.4-10.2); Carbon Dioxide 30 mmol/L (22-32); Chloride 102 mmol/L (98-107); Estimated Glomerular Filt Rate 59.4 mL/min (>60); Globulin 3.4 g/dL (1.7-4.1); Glucose 87 mg/dL (80-110); HEMOLYSIS < 15 (0-50); Potassium 3.4 mmol/L (3.4-5.1); Sodium 140 mmol/L (137-145); Total Protein 7.4 g/dL (6.3-8.2)
[2021-06-29 17:52] LABS: NT-proBNP (BNP-Adult 18+) 73 pg/mL (<125)
[2021-06-29 18:13] LABS: TSH w/ Reflex to FT4 4.21 uIU/mL (0.47-4.68)
== END ==
PROVIDERS: PCP Family Medicine; Referring Provider Family Medicine; Visit Provider Family Medicine
DX: I50.1 Left ventricular failure, unspecified (principal); R09.89 Other specified symptoms and signs involving the circulatory and respiratory systems; E66.01 Morbid (severe) obesity due to excess calories; G47.30 Sleep apnea, unspecified; R06.02 Shortness of breath; R53.83 Other fatigue
CPT/HCPCS: 36415; 71046; 80053; 83880; 84443; 85025

== ENCOUNTER → 2022-11-02 13:39 | Outpatient (CLI) | payer MEDICARE, OTHER, SELFPAY ==
[2022-11-02 15:05] LABS: Add Manual Diff / Slide Review NO; Basophils Absolute Auto 0 /uL (0-100); Basophils Percent Auto 0.5 % (0-2); Eosinophils Absolute Auto 200 /uL (0-450); Eosinophils Percent Auto 2.7 % (2-4); Hematocrit 43.8 % (36-46); Lymphocytes Absolute Auto 1800 /uL (1100-4500); Lymphocytes Percent Auto 22.7 % (25-40); Mean Corpuscular HGB Conc 34.3 % (30-36); Mean Corpuscular Hemoglobin 32.6 PG (26-34); Mean Corpuscular Volume 94.9 fL (80-100); Monocytes Absolute Auto 500 /uL (0-900); Monocytes Percent Auto 6.4 % (3-14); Neutrophils Absolute Auto 5400 /uL (1500-7000); Neutrophils Percent Auto 67.7 % (50-75); Platelet Count 223 X10^3/uL (150-400); Red Blood Cell Count 4.62 X10^6/uL (4.0-5.2); Red Cell Distribution Width 13.3 % (11.6-14.8); White Blood Cell Count 7.9 X10^3/uL (4.5-11.0)
[2022-11-02 15:17] LABS: Alanine Aminotransferase 22 IU/L (<35); Albumin 4.2 g/dL (3.5-5.0); Albumin Globulin Ratio 1.3 (1.0-2.8); Alkaline Phosphatase 72 U/L (38-126); Aspartate Aminotransferase 30 IU/L (14-36); Bilirubin Total 0.6 mg/dL (0.2-1.3); Blood Urea Nitrogen 9 mg/dL (7-17); C-Reactive Protein Quant < 0.5 mg/dL (<1.0); Calcium 9.2 mg/dL (8.4-10.2); Carbon Dioxide 30 mmol/L (22-32); Chloride 100 mmol/L (98-107); Estimated Glomerular Filt Rate > 60 mL/min (>60); Globulin 3.2 g/dL (1.7-4.1); Glucose 89 mg/dL (80-110); HEMOLYSIS < 15 (0-50); Potassium 2.8 mmol/L (3.4-5.1); Sodium 140 mmol/L (137-145); Total Protein 7.4 g/dL (6.3-8.2)
[2022-11-02 15:46] LABS: Thyroid Stimulating Hormone 2.18 uIU/mL (0.47-4.68)
[2022-11-02 16:20] LABS: Erythrocyte Sedimentation Rate 11 MM/HR (0-20)
[2022-11-02 19:07] LABS: Clostridium Difficile Tox PCR Negative for C. diff (Negative)
[2022-11-03 19:51] LABS: t-Transglutaminase IgA <2 U/mL (0-3)
[2022-11-04 16:12] LABS: Calprotectin, Stool 130 ug/g (0-120)
== END ==
PROVIDERS: PCP Family Medicine; Referring Provider Internal Medicine Gastroenterology; Visit Provider Internal Medicine Gastroenterology
DX: R19.7 Diarrhea, unspecified (principal); K21.9 Gastro-esophageal reflux disease without esophagitis; K22.70 Barrett's esophagus without dysplasia
CPT/HCPCS: 36415; 80053; 83516; 83993; 84443; 85025; 85651; 86140; 87493

== ENCOUNTER → 2022-11-14 14:30 | Outpatient (CLI) | payer MEDICARE, OTHER, SELFPAY ==
--- NOTE | 2022-11-14 14:34 | DI.RAD.S_ITS ---
PROCEDURE: XR ACUTE ABDOMEN SERIES INDICATIONS: DIARRHEA TECHNIQUE: One view chest and two views of the abdomen were acquired. COMPARISON: [facility], CT, ABDOMEN/PELVIS WITH CONTRAST, 04/19/2010, 9:14. [facility], CR, XR CHEST 2V, 06/29/2021, 15:32. FINDINGS: Chest: No suspicious focal airspace opacity identified. Heart size is normal. No pleural effusions. Abdomen: No evidence of pneumoperitoneum. Nonobstructive bowel gas pattern. Unremarkable amount of stool present in the colon. Bones: Bilateral hip arthroplasty, hardware incompletely imaged. IMPRESSION: 1. Nonobstructive bowel gas pattern. 2. No acute cardiopulmonary abnormality. Dictated by: Víctor Aceves M.D. on 11/14/2022 at 15:56 Approved by: Víctor Aceves M.D. on 11/14/2022 at 16:07
== END ==
PROVIDERS: PCP Family Medicine; Referring Provider Internal Medicine Gastroenterology; Visit Provider Internal Medicine Gastroenterology
DX: R19.7 Diarrhea, unspecified (principal); Z96.643 Presence of artificial hip joint, bilateral
CPT/HCPCS: 74022

== ENCOUNTER 2022-11-22 12:11 | Emergency (ER) | payer MEDICARE, OTHER, SELFPAY ==
[2022-11-22] VITALS (16 sets, daily range): BP systolic 123–146; BP diastolic 67–82; PULSE 65–84; RESP 18–30; TEMP 36.7; O2SAT 92–99
--- NOTE | 2022-11-22 12:48 | DI.RAD.S_ITS ---
PROCEDURE: XR CHEST 1V INDICATIONS: chest pain TECHNIQUE: One view of the chest was acquired. COMPARISON: [facility], CR, XR CHEST 2V, 06/29/2021, 15:32. [facility], CR, XR CHEST 1V, 05/18/2019, 22:38. FINDINGS: Surgical changes and devices: None. Lungs and pleura: Lungs are clear. No pleural effusions or pneumothorax. Mediastinum: Mediastinal contours appear normal. Heart size is normal. Bones and chest wall: No suspicious bony lesions. Overlying soft tissues appear unremarkable. IMPRESSION: No acute cardiopulmonary disease process. Dictated by: Marj Juarez MD, PhD on 11/22/2022 at 13:09 Approved by: Marj Juarez MD, PhD on 11/22/2022 at 13:09
--- NOTE | 2022-11-22 13:19 | ED_ITS ---
HPI - Nausea/Vomiting/Diarrhea General Chief complaint: Nausea/Vomiting/Diarrhea Stated complaint: sent by DR Jimenes Time Seen by Provider: 11/22/22 12:50 Source: patient Mode of arrival: Wheelchair Limitations: no limitations History of Present Illness HPI Narrative: Patient is a 72-year-old female who was sent to the emergency department by her GI provider for evaluation of open reported to be low potassium and also to check her stools for potential infection. She is had diarrhea for the past several weeks. Has provided several stool samples but apparently it has not checked for what the GI provider has wanted it to check for. She is no recent travel. No recent antibiotics. Had some nausea last evening. No rashes. Related Data Previous Rx's Medication Instructions Recorded adjuvant AS01B (PF)vial 1 of 2 0.5 ml IM ONCE #0.5 mL 11/16/18 (Shingrix Adjuvant Component (PF) intramuscular suspension) Disabled Parking Pass #1 ea 12/25/19 gabapentin 600 mg tablet 600 mg PO TID #270 tabs 03/11/21 Nasal Canula and Tubing #1 ea 06/29/21 Oxygen Tank #1 ea 06/29/21 Stationary Oxygen Concentrator #1 ea 06/29/21 furosemide 20 mg tablet 20 mg PO BID #180 tabs 06/29/21 nitroglycerin 0.4 mg sublingual 0.4 mg sublingual Q5-15M PRN chest 07/07/21 tablet pain #20 tabs duloxetine 30 mg capsule,delayed 30 mg PO DAILY #90 caps 08/11/21 release duloxetine 60 mg capsule,delayed 60 mg PO DAILY #90 caps 08/11/21 release oxybutynin chloride 15 mg 15 mg PO DAILY #90 tabs 08/11/21 tablet,extended release 24 hr cyclobenzaprine 10 mg tablet 10 mg PO BEDTIME #90 tabs 11/26/21 esomeprazole magnesium 40 mg 40 mg PO BID #180 caps 11/26/21 capsule,delayed release (Nexium) metoprolol tartrate 25 mg tablet 25 mg PO DAILY #90 tabs 11/26/21 mirtazapine 15 mg tablet 15 mg PO BEDTIME #90 tabs 11/26/21 valacyclovir 1 gram tablet See Rx Instructions .Route 02/03/22 .COMPLEX #20 tabs meclizine 25 mg tablet 25 mg PO BID PRN dizziness #60 tabs 04/28/22 C-LIDOCAINE/ANTACID 1:1 See Rx Instructions .Route 03/04/22 .COMPLEX #200 mL diphenoxylate-atropine 2.5 See Rx Instructions .Route 03/14/22 mg-0.025 mg tablet .COMPLEX #90 tabs Allergies Allergy/AdvReac Type Severity Reaction Status Date / Time diphenhydramine AdvReac Severe severe Verified 07/05/22 13:27 [DIPHENHYDRAMINE] anxiety. jittery, increase pulse Review of Systems Constitutional Constitutional: Reports system reviewed and no additional complaints, except as documented Cardiovascular Cardiovascular: Reports system reviewed and no additional complaints, except as documented Respiratory Respiratory: Reports system reviewed and no additional complaints, except as documented Gastrointestinal Gastrointestinal: Reports system reviewed and no additional complaints, except as documented Genitourinary Genitourinary: Reports system reviewed and no additional complaints, except as documented Integumentary/Breasts Skin/Breast: Reports system reviewed and no additional complaints, except as documented Hematologic/Lymphatic On Anticoagulants: No Patient History Medical History Anxiety (Unknown) Nelson's esophagus (Unknown) Chronic fatigue (Unknown) Chronic low back pain with left-sided sciatica Depression (Unknown) Fibromyalgia (Unknown) GERD (gastroesophageal reflux disease) (Unknown) Herpes (Unknown) Hypertension (Unknown) IBS (irritable bowel syndrome) (Unknown) Incontinence Labyrinthitis Myoclonic jerking Obstructive sleep apnea (Unknown) Osteoporosis (Unknown) Sleep apnea Surgical History History of hip surgery (Unknown) History of third molar tooth extraction History of total left hip replacement (Unknown) History of total right hip replacement (Unknown) Hx of hysterectomy (Unknown) Status post delivery Status post colonoscopy Status post tonsillectomy and adenoidectomy Family History Brother Congestive heart failure Father History of heart valve replacement Mother Diabetes mellitus Social History household members: spouse Smoking Status: Former smoker alcohol intake: current Smoking Status: Former smoker Substance Use Type: does not use Exam Initial Vital Signs Initial Vital Signs: Vital Signs Temperature 98.1 F 11/22/22 12:41 Pulse Rate 65 11/22/22 12:41 Respiratory Rate 18 11/22/22 12:41 Blood Pressure 123/82 11/22/22 12:41 Pulse Oximetry 99 11/22/22 12:41 Oxygen Delivery Method 11/22/22 12:41 [facility] Head: normal to inspection Resp Effort & Inspection: normal respiratory effort Auscultation: clear to auscultation bilaterally Cardio Rate: regular rate Rhythm: regular rhythm GI Inspection: normal to inspection Skin General: no rashes or lesions noted Neuro General: patient alert, patient awake and moves all extremities Extrem General: normal to inspection and capillary refill normal Course Orders Ordered: ED Orders 11/22/22 12:48 XR chest 1V Stat EKG-12 Lead Stat 11/22/22 15:15 Complete Blood Count AUTO DIFF Stat Comprehensive Metabolic Panel Stat Lipase Stat Magnesium Stat Partial Thromboplastin Time Stat Prothrombin Time INR Stat Troponin & CK Cardiac Panel Stat 11/22/22 15:48 GI Panel (Film Array) Stat 11/22/22 16:02 Urinalysis and Microscopic Stat Urine Culture Stat Discontinued Medications Sodium Chloride (Normal Saline 0.9%) 1,000 mls @ 1,000 mls/hr IV BOLUS ONE Stop: 11/22/22 16:17 Last Infusion: 11/22/22 17:41 Dose: 0 mls/hr Documented By: Infusion: 11/22/22 16:40 Dose: 1,000 mls/hr Documented By: Infusion: 11/22/22 15:45 Dose: 0 mls/hr Documented By: Admin: 11/22/22 15:34 Dose: 1,000 mls/hr Documented By: JENNIFER POTASSIUM CHLORIDE IN WATER (Potassium Cl 10 Meq/100 Ml Kaila) 10 meq in 100 mls @ 100 mls/hr IV Q1H IZA Stop: 11/22/22 18:14 Last Infusion: 11/22/22 18:36 Dose: 0 mls/hr Documented By: Admin: 11/22/22 17:42 Dose: 100 mls/hr Documented By: Infusion: 11/22/22 17:41 Dose: 0 mls/hr Documented By: Admin: 11/22/22 16:32 Dose: 100 mls/hr Documented By: MLM Lidocaine HCl (Lidocaine 2% (Glydo) 6 Ml Gel) 6 ml TOP NOW ONE Stop: 11/22/22 12:59 Last Admin: 11/22/22 12:59 Dose: Not Given Documented By: JENNIFER Potassium Chloride (Potassium Chloride 20 Meq Tab) 20 meq PO NOW ONE Stop: 11/22/22 16:00 Last Admin: 11/22/22 16:32 Dose: 20 meq Documented By: DON Vital Signs Vital signs: Vital Signs - 8 hr 11/22/22 12:41 11/22/22 12:51 11/22/22 13:00 Temperature 98.1 F Pulse Rate 65 66 66 Respiratory Rate 18 20 22 Blood Pressure 123/82 Pulse Oximetry 99 94 94 Oxygen Delivery Method Room Air 11/22/22 13:01 11/22/22 13:01 11/22/22 13:30 Temperature Pulse Rate 67 Respiratory Rate 21 Blood Pressure 146/81 H 140/67 Pulse Oximetry 94 Oxygen Delivery Method 11/22/22 13:30 11/22/22 14:00 11/22/22 14:30 Temperature Pulse Rate 67 66 71 Respiratory Rate 24 22 21 Blood Pressure Pulse Oximetry 92 95 Oxygen Delivery Method 11/22/22 15:00 11/22/22 15:53 11/22/22 15:57 Temperature Pulse Rate 70 84 79 Respiratory Rate 23 30 H Blood Pressure Pulse Oximetry 98 92 93 Oxygen Delivery Method Room Air 11/22/22 15:57 11/22/22 16:00 11/22/22 16:00 Temperature Pulse Rate 77 Respiratory Rate 27 H Blood Pressure 135/75 133/81 Pulse Oximetry 93 Oxygen Delivery Method 11/22/22 16:30 11/22/22 17:00 11/22/22 17:30 Temperature Pulse Rate 75 76 74 Respiratory Rate 21 24 23 Blood Pressure Pulse Oximetry 94 94 Oxygen Delivery Method 11/22/22 18:37 11/22/22 18:38 11/22/22 18:38 Temperature Pulse Rate 71 71 Respiratory Rate Blood Pressure 138/78 Pulse Oximetry 96 96 Oxygen Delivery Method MDM - Nausea/Vomiting/Diarrhea Differential Diagnosis Differential diagnosis: Likely traveler's diarrhea, food poisoning, gastroenteritis, clostridium difficile infection, drug-induced nausea and vomiting and dehydration Condition is:: Well Controlled Chronic Condition is having:: Mild excerbation Condition is at treatment goal?: Yes Lab Data Attestation: I reviewed the patient's lab results. 11/22/22 15:15 11/22/22 15:15 Labs: Lab Results 11/22/22 11/22/22 11/22/22 Range/Units 15:15 15:15 15:15 WBC 8.0 (4.5-11.0) X10^3/uL RBC 4.93 (4.0-5.2) X10^6/uL Hgb 15.5 (12.0-16.0) g/dL Hct 45.5 (36-46) % MCV 92.4 (80-100) fL MCH 31.5 (26-34) PG MCHC 34.1 (30-36) % RDW 13.1 (11.6-14.8) % Plt Count 231 (150-400) X10^3/uL Neut % (Auto) 63.2 (50-75) % Lymph % (Auto) 27.7 (25-40) % Giles % (Auto) 7.1 (3-14) % Eos % (Auto) 1.5 L (2-4) % Baso % (Auto) 0.5 (0-2) % Neut # (Auto) 5100 (7985-0187) /uL Lymph # (Auto) 2200 (6538-8702) /uL Giles # (Auto) 600 (0-900) /uL Eos # (Auto) 100 (0-450) /uL Baso # (Auto) 0 (0-100) /uL PT 13.8 H (10.1-12.7) SECONDS INR 1.2 (0.9-1.3) APTT 31 (26-36) SECONDS Sodium 138 (137-145) mmol/L Potassium 2.9 L (3.4-5.1) mmol/L Chloride 100 (98-107) mmol/L Carbon Dioxide 28 (22-32) mmol/L BUN 11 (7-17) mg/dL Creatinine 0.71 (0.52-1.04) mg/dL Estimated GFR > 60 (>60) mL/min BUN/Creatinine Ratio 15.5 (6-22) Glucose 89 (80-110) mg/dL Calcium 9.1 (8.4-10.2) mg/dL Magnesium 2.0 (1.6-2.3) mg/dL Total Bilirubin 0.6 (0.2-1.3) mg/dL AST 42 H (14-36) IU/L ALT 29 (<35) IU/L Alkaline Phosphatase 64 (38-126) U/L Total Creatine Kinase 50 (30-135) U/L CK-MB (CK-2) TNP CK-MB (CK-2) Rel Index TNP Troponin I < 0.012 (0.01-0.034) ng/mL Total Protein 7.3 (6.3-8.2) g/dL Albumin 4.0 (3.5-5.0) g/dL Globulin 3.3 (1.7-4.1) g/dL Albumin/Globulin Ratio 1.2 (1.0-2.8) Lipase 13 L (23-300) U/L Urine Color Urine Appearance Urine pH (4.5-8.0) Ur Specific [place] (1.000-1.035) Urine Protein (Negative) Urine Glucose (UA) (Negative) g/dL Urine Ketones (NEGATIVE) Urine Occult Blood (Negative) Urine Nitrate (Negative) Urine Bilirubin (NEGATIVE) Urine Urobilinogen (0.2) E.U./dL Ur Leukocyte Esterase (NEGATIVE) Urine RBC (0-5/HPF) Urine WBC (0-5/HPF) Ur Squamous Epith Cells (0-5/HPF) Urine Bacteria (None) Ur Culture Indicated? Stl C. cayetanensis PCR (Not Detect) Stool Rotavirus (PCR) (Not Detect) Stool Adenovirus (PCR) (Not Detect) Stool Astrovirus (PCR) (Not Detect) Stool Cryptosporidium PCR (Not Detect) Stl E.coli Shiga Tox PCR (Not Detect) St Sh/Enteroin Ecoli PCR (Not Detect) Stool E coli O157 PCR Stl Enterotoxigenic E PCR (Not Detect) Stool EPEC (PCR) (Not Detect) Stl E. histolytica PCR (Not Detect) Stool Giardia Lamblia PCR (Not Detect) Stool Sapovirus (PCR) (Not Detect) Stl P. shigelloides PCR (Not Detect) St Y.enterocolitica PCR (Not Detect) Stool Vibrio (PCR) (Not Detect) Stl Vibrio cholerae PCR (Not Detect) Stl Enteroaggr Ecoli PCR (Not Detect) Stl Norovirus GI/GII PCR (Not Detect) Campylobacter (PCR) (Not Detect) C. difficile Tox (PCR) (Not Detect) Salmonella (PCR) (Not Detect) 11/22/22 11/22/22 Range/Units 15:48 16:02 WBC (4.5-11.0) X10^3/uL RBC (4.0-5.2) X10^6/uL Hgb (12.0-16.0) g/dL Hct (36-46) % MCV (80-100) fL MCH (26-34) PG MCHC (30-36) % RDW (11.6-14.8) % Plt Count (150-400) X10^3/uL Neut % (Auto) (50-75) % Lymph % (Auto) (25-40) % Giles % (Auto) (3-14) % Eos % (Auto) (2-4) % Baso % (Auto) (0-2) % Neut # (Auto) (0814-3412) /uL Lymph # (Auto) (5279-8848) /uL Giles # (Auto) (0-900) /uL Eos # (Auto) (0-450) /uL Baso # (Auto) (0-100) /uL PT (10.1-12.7) SECONDS INR (0.9-1.3) APTT (26-36) SECONDS Sodium (137-145) mmol/L Potassium (3.4-5.1) mmol/L Chloride (98-107) mmol/L Carbon Dioxide (22-32) mmol/L BUN (7-17) mg/dL Creatinine (0.52-1.04) mg/dL Estimated GFR (>60) mL/min BUN/Creatinine Ratio (6-22) Glucose (80-110) mg/dL Calcium (8.4-10.2) mg/dL Magnesium (1.6-2.3) mg/dL Total Bilirubin (0.2-1.3) mg/dL AST (14-36) IU/L ALT (<35) IU/L Alkaline Phosphatase (38-126) U/L Total Creatine Kinase (30-135) U/L CK-MB (CK-2) CK-MB (CK-2) Rel Index Troponin I (0.01-0.034) ng/mL Total Protein (6.3-8.2) g/dL Albumin (3.5-5.0) g/dL Globulin (1.7-4.1) g/dL Albumin/Globulin Ratio (1.0-2.8) Lipase (23-300) U/L Urine Color Yellow Urine Appearance Clear Urine pH 6.0 (4.5-8.0) Ur Specific [place] 1.015 (1.000-1.035) Urine Protein Negative (Negative) Urine Glucose (UA) Negative (Negative) g/dL Urine Ketones 1+ H (NEGATIVE) Urine Occult Blood Negative (Negative) Urine Nitrate Positive H (Negative) Urine Bilirubin Negative (NEGATIVE) Urine Urobilinogen 0.2 (0.2) E.U./dL Ur Leukocyte Esterase Negative (NEGATIVE) Urine RBC 1-5/hpf (0-5/HPF) Urine WBC 5-10/hpf H (0-5/HPF) Ur Squamous Epith Cells 0-1 /hpf (0-5/HPF) Urine Bacteria Many (>30) H (None) Ur Culture Indicated? Specimen cultured Stl C. cayetanensis PCR Not detected (Not Detect) Stool Rotavirus (PCR) Not detected (Not Detect) Stool Adenovirus (PCR) Not detected (Not Detect) Stool Astrovirus (PCR) Not detected (Not Detect) Stool Cryptosporidium PCR Not detected (Not Detect) Stl E.coli Shiga Tox PCR Not detected (Not Detect) St Sh/Enteroin Ecoli PCR Not detected (Not Detect) Stool E coli O157 PCR Not Reportable Stl Enterotoxigenic E PCR Not detected (Not Detect) Stool EPEC (PCR) Not detected (Not Detect) Stl E. histolytica PCR Not detected (Not Detect) Stool Giardia Lamblia PCR Not detected (Not Detect) Stool Sapovirus (PCR) Not detected (Not Detect) Stl P. shigelloides PCR Not detected (Not Detect) St Y.enterocolitica PCR Not detected (Not Detect) Stool Vibrio (PCR) Not detected (Not Detect) Stl Vibrio cholerae PCR Not detected (Not Detect) Stl Enteroaggr Ecoli PCR Not detected (Not Detect) Stl Norovirus GI/GII PCR Not detected (Not Detect) Campylobacter (PCR) Not detected (Not Detect) C. difficile Tox (PCR) Not detected (Not Detect) Salmonella (PCR) Not detected (Not Detect) Urine Dip Bedside Urine Glucose Negative Bedside Urine Bilirubin - Negative Bedside Urine Ketone +/- 5 Urine Specific [place] 1.015 Bedside Urine Occult Blood - Negative Bedside Urine pH 6.0 Bedside Urine Protein +/- 15 Bedside Urine Urobilinogen - Negative Bedside Urine Nitrite + Positive Bedside Urine Leukocytes - Negative Esterase Imaging Data Chest x-ray: Radiologist's Impression: [address] [address] XRay Report Signed Patient: Stephanie Lucas MR#: [id number] : 1950 Acct:[id number] Age/Sex: 72 / F Date of Service: 11/22/22 Loc: ED Accession Number: [id number] ?? Procedure: XR chest 1V Ordering Provider: Grey Ewing D.O. PROCEDURE:? XR CHEST 1V ? INDICATIONS:? chest pain ? TECHNIQUE:? One view of the chest was acquired.? ? COMPARISON:? [facility], CR, XR CHEST 2V, 06/29/2021, 15:32.? [facility], CR, XR CHEST 1V, 05/18/2019, 22:38. ? FINDINGS:? ? Surgical changes and devices:? None.? ? Lungs and pleura:? Lungs are clear.? No pleural effusions or pneumothorax.? ? Mediastinum:? Mediastinal contours appear normal.? Heart size is normal.? ? Bones and chest wall:? No suspicious bony lesions.? Overlying soft tissues appear unremarkable.? ? IMPRESSION:? No acute cardiopulmonary disease process. ? ? Dictated by: Marj Juarez MD, PhD on 11/22/2022 at 13:09 ? ? Approved by: Marj Juarez MD, PhD on 11/22/2022 at 13:09? ECG Data Attestation: I personally reviewed and interpreted this ECG as follows: Interpretation: Sinus rhythm Ventricular rate of 68 Normal axis Normal QRS Normal QTC Nonspecific ST T wave changes MDM Narrative Medical decision making narrative: Patient is hypokalemic. This was replaced here in the emergency department by both oral and IV. Patient's stool PCR is negative for any acute pathogens. The re is no indication for antibiotics. She currently has a prescription for Imodium. She is under care of a GI provider. She is tolerating oral intake. No further workup required in the emergency department. Will discharge patient home. She was given return precautions. She expressed understanding and agreement. Discharge Plan Departure Patient Disposition: Home Clinical Impression: Hypokalemia, Diarrhea Instructions: Diarrhea Activity Restrictions/Additional Instructions: Recommend that you continue to take all of your medications as directed and keep all of your scheduled medical appointments. Return to the emergency department for any new or worsening symptoms. Prescriptions: No Action adjuvant AS01B (PF)vial 1 of 2 [Shingrix Adjuvant Component-PF] suspension 0.5 ml IM ONCE Qty: 0.5 0RF gabapentin 600 mg tablet 600 mg PO TID Qty: 270 2RF nitroglycerin 0.4 mg tablet, sublingual 0.4 mg sublingual Q5-15M PRN (Reason: chest pain) Qty: 20 1RF Rx Instructions: do not exceed 3 doses per episode cyclobenzaprine 10 mg tablet 10 mg PO BEDTIME Qty: 90 2RF esomeprazole magnesium [Nexium] 40 mg capsule,delayed release(DR/EC) 40 mg PO BID Qty: 180 3RF metoprolol tartrate 25 mg tablet 25 mg PO DAILY Qty: 90 2RF mirtazapine 15 mg tablet 15 mg PO BEDTIME Qty: 90 3RF valacyclovir 1 gram tablet See Rx Instructions .ROUTE .COMPLEX Qty: 20 0RF Dose Instruction: TAKE 1/2 TABLET BY MOUTH TWICE DAILY Rx Instructions: TAKE 1/2 TABLET BY MOUTH TWICE DAILY meclizine 25 mg tablet 25 mg PO BID PRN (Reason: dizziness) Qty: 60 2RF C-LIDOCAINE/ANTACID 1:1 See Rx Instructions .ROUTE .COMPLEX Qty: 200 3RF Dose Instruction: SWISH AND SPIT UPTO 4 TIMES A DAY NEEDED Rx Instructions: SWISH AND SPIT UPTO 4 TIMES A DAY NEEDED diphenoxylate-atropine 2.5-0.025 mg tablet See Rx Instructions .ROUTE .COMPLEX Qty: 90 0RF Dose Instruction: LIKE 1 TABLET BY MOUTH EVERY 6 TO 8 HOURS NEEDED FOR DIARRHEA Rx Instructions: LIKE 1 TABLET BY MOUTH EVERY 6 TO 8 HOURS NEEDED FOR DIARRHEA (DME) Disabled Parking Pass Qty: 1 0RF Dose Instruction: As directed Rx Instructions: As directed (DME) Stationary Oxygen Concentrator See Rx Instructions .Route .MEDSUPPLY Qty: 1 0RF Rx Instructions: Use to administer 2LPM continuous oxygen (DME) Nasal Canula and Tubing See Rx Instructions .Route .MEDSUPPLY Qty: 1 0RF Rx Instructions: Used to administer continuous oxygen. (DME) Oxygen Tank See Rx Instructions .Route .MEDSUPPLY Qty: 1 0RF Rx Instructions: Use to administer 2LPM continuous oxygen for transportation furosemide 20 mg tablet 20 mg PO BID Qty: 180 3RF oxybutynin chloride 15 mg tablet extended release 24hr 15 mg PO DAILY Qty: 90 1RF duloxetine 30 mg capsule,delayed release(DR/EC) 30 mg PO DAILY Qty: 90 3RF duloxetine 60 mg capsule,delayed release(DR/EC) 60 mg PO DAILY Qty: 90 3RF Referrals: Dallas Castro DO [Physician] - Stand Alone Forms: Patient Portal/API
[2022-11-22 15:29] LABS: Add Manual Diff / Slide Review NO; Basophils Absolute Auto 0 /uL (0-100); Basophils Percent Auto 0.5 % (0-2); Eosinophils Absolute Auto 100 /uL (0-450); Eosinophils Percent Auto 1.5 % (2-4); Hematocrit 45.5 % (36-46); Hemoglobin 15.5 g/dL (12.0-16.0); Lymphocytes Absolute Auto 2200 /uL (1100-4500); Lymphocytes Percent Auto 27.7 % (25-40); Mean Corpuscular HGB Conc 34.1 % (30-36); Mean Corpuscular Hemoglobin 31.5 PG (26-34); Mean Corpuscular Volume 92.4 fL (80-100); Monocytes Absolute Auto 600 /uL (0-900); Monocytes Percent Auto 7.1 % (3-14); Neutrophils Absolute Auto 5100 /uL (1500-7000); Neutrophils Percent Auto 63.2 % (50-75); Platelet Count 231 X10^3/uL (150-400); Red Blood Cell Count 4.93 X10^6/uL (4.0-5.2); Red Cell Distribution Width 13.1 % (11.6-14.8)
[2022-11-22] MEDS: SODIUM CHLORIDE 0.9% 1,000 ML 1000 ML IV (15:34)
[2022-11-22 15:36] LABS: INR 1.2 (0.9-1.3); Prothrombin Time 13.8 SECONDS (10.1-12.7)
[2022-11-22 15:39] LABS: PTT Partial Thromboplastin Tim 31 SECONDS (26-36)
[2022-11-22 15:43] LABS: Alanine Aminotransferase 29 IU/L (<35); Albumin Globulin Ratio 1.2 (1.0-2.8); Alkaline Phosphatase 64 U/L (38-126); Aspartate Aminotransferase 42 IU/L (14-36); BUN Creatinine Ratio 15.5 (6-22); Bilirubin Total 0.6 mg/dL (0.2-1.3); Blood Urea Nitrogen 11 mg/dL (7-17); Calcium 9.1 mg/dL (8.4-10.2); Carbon Dioxide 28 mmol/L (22-32); Chloride 100 mmol/L (98-107); Creatine Kinase 50 U/L (30-135); Estimated Glomerular Filt Rate > 60 mL/min (>60); Globulin 3.3 g/dL (1.7-4.1); Glucose 89 mg/dL (80-110); HEMOLYSIS 21 (0-50); Lipase 13 U/L (23-300); Potassium 2.9 mmol/L (3.4-5.1); Sodium 138 mmol/L (137-145); Total Protein 7.3 g/dL (6.3-8.2)
[2022-11-22 15:52] LABS: Troponin I < 0.012 ng/mL (0.01-0.034)
[2022-11-22 16:21] LABS: Appearance Urine UA CLEAR; Bilirubin Urine UA NEGATIVE (NEGATIVE); Color Urine UA YELLOW; Glucose Urine UA NEGATIVE (Negative); Ketones Urine UA 1+ (NEGATIVE); Leukocyte Esterase Urine UA NEGATIVE (NEGATIVE); Nitrite Urine UA POSITIVE (Negative); Occult Blood Urine UA NEGATIVE (Negative); Protein Urine UA NEGATIVE (Negative); Specific Gravity Urine UA 1.015 (1.000-1.035); Urobilinogen Urine UA 0.2 E.U./dL (0.2)
[2022-11-22] MEDS: POTASSIUM CHLORIDE 20 MEQ TAB PO (16:32)
[2022-11-22] MEDS: POTASSIUM CHLORIDE IN WATER 10 MEQ/100 ML PIGGYBACK 100 MEQ IV ×2 (16:32→17:42)
[2022-11-22 16:44] LABS: Bacteria Urine Many (>30); Culture Indicated Urine Specimen Cultured; RBC Urine 1-5/HPF (0-5/HPF); Squamous Epithelial Cell Urine 0-1 /HPF (0-5/HPF); WBC Urine 5-10/HPF (0-5/HPF)
[2022-11-22 18:08] LABS: Adenovirus F 40/41 Not Detected (Not Detect); Astrovirus Not Detected (Not Detect); Campylobacter Not Detected (Not Detect); Clostridium difficile toxin AB Not Detected (Not Detect); Cryptosporidium Not Detected (Not Detect); Cyclospora cayetanensis Not Detected (Not Detect); Entamoeba histolytica Not Detected (Not Detect); Enteroaggregative E.coli Not Detected (Not Detect); Enteropathogenic E.coli Not Detected (Not Detect); Enterotoxigenic E.coli It/st Not Detected (Not Detect); Giardia lamblia Not Detected (Not Detect); Norovirus GI/GII Not Detected (Not Detect); Plesiomonsa shigelloides Not Detected (Not Detect); Rotavirus A Not Detected (Not Detect); Salmonella Not Detected (Not Detect); Sapovirus Not Detected (Not Detect); Shiga-like toxin-prod E.coli Not Detected (Not Detect); Shigella/Enteroinvasive E.coli Not Detected (Not Detect); Vibrio Not Detected (Not Detect); Vibrio cholerae Not Detected (Not Detect); Yersinia enterocolitica Not Detected (Not Detect)
== END 2022-11-22 18:58 | disposition home or self-care (01) ==
PROVIDERS: Emergency Provider Emergency Medicine; PCP Internal Medicine
DX: E87.6 Hypokalemia (principal); R19.7 Diarrhea, unspecified; R07.9 Chest pain, unspecified
CPT/HCPCS: 36415; 71045; 80053; 81001; 81003; 82550; 83690; 83735; 84484; 85025; 85610; 85730; 87077; 87086; 87186; 87507; 93005; 96365; 96366; 99284; 99285

== ENCOUNTER → 2023-12-11 12:22 | Outpatient (CLI) | payer MEDICARE, OTHER, SELFPAY ==
--- NOTE | 2023-12-11 | DI.ECHO.S_ITS ---
[facility] +---------+ : : [address] : : : : [id number] : : : : Phone: [phone] Echocardiogram Report + + :Name: NILA GRADY Study Date: 12/11/2023 Height: 64 in : :[facility] ReadingLocation: Weight: 185 lb : : Gender: Female BSA: 1.9 m2 : :: 1950 Age: 73 yrs BP: 123/81 mmHg: :Reason For Study: MURMUR : :Ordering Physician: BALTA, : :ABIODUN Performed By: Jamie Borden : :Referring: ABIODUN GIFFORD : + + Interpretation Summary The ejection fraction is estimated to be 70-75%. Diastolic function could not be accurately assessed due to contradictory data. The left atrium is borderline dilated. The right ventricle is normal in size and function. There is severe aortic stenosis. There is trace aortic regurgitation. Pulmonary artery pressures cannot be estimated because of the lack of a measurable TR jet velocity but the IVC suggests a CVP of around 3 mmHg. Compared to the prior study dated 09/05/2019, the aortic valve gradient has increased. Procedure: A two-dimensional transthoracic echocardiogram with color flow and Doppler was performed. The study quality was technically adequate. Comparison is made with the echocardiogram of 09/05/2019. The patient was in normal sinus rhythm during the exam. The heart rate ranged between 65-70 bpm during the study. Left Ventricle: The left ventricle is normal in size and wall thickness. The left ventricle is hyperdynamic. The ejection fraction is estimated to be 70- 75%. Diastolic function could not be accurately assessed due to contradictory data. Right Ventricle: The right ventricle is normal in size and function. Atria: The left atrium is borderline dilated. Right atrial size is normal. Mitral Valve: The mitral valve is normal in structure and function. There is no mitral valve stenosis. There is no mitral regurgitation noted. Aortic Valve: The aortic valve is trileaflet. The aortic valve is severely calcified. There is severe aortic stenosis. The peak aortic velocity is 4.25 m/sec. The aortic valve mean gradient is 46 mmHg. The calculated aortic valve area is 0.97 cm2. There is trace aortic regurgitation. Tricuspid Valve: The tricuspid valve is normal in structure and function. There is no tricuspid stenosis. There is trace tricuspid regurgitation. Pulmonary artery pressures cannot be estimated because of the lack of a measurable TR jet velocity but the IVC suggests a CVP of around 3 mmHg. Pulmonic Valve: The pulmonic valve is not well visualized. There is no pulmonic valvular stenosis. There is no pulmonic valvular regurgitation. Great Vessels: The aortic root is normal size. The dimensions of the ascending aorta are normal. The inferior vena cava appeared normal. Pericardium/ Pleura There is no pericardial effusion. There is no pleural effusion. MMode/2D Measurements & Calculations LVIDd: 4.3 cm LVOT diam: 1.9 cm LVIDs: 2.8 cm Ao root diam: 2.5 cm FS: 35.5 % asc Aorta Diam: 3.2 cm IVSd: 1.3 cm Ao Arch Diam (Prox Trans): 3.0 cm LVPWd: 1.0 cm LV epps. diameter/BSA (cm/m^2): 2.3 LV sys. diameter/BSA (cm/m^2): 1.5 LA A2 area: 19.5 cm2 RA long axis: 4.2 cm LA A4 area: 20.5 cm2 RA area: 15.1 cm2 LA length (vol): 5.0 cm RA vol: 46.1 ml LA vol: 67.1 ml RA : 24.4 ml/m2 LA vol index: 35.5 ml/m2 IVC diam: 1.8 cm RVD1 (basal): 3.9 cm RVD2 (mid): 3.3 cm TAPSE: 2.7 cm Doppler Measurements & Calculations Ao V2 max: 425.5 cm/sec LVOT Max Ray: 145.4 cm/sec Ao V2 mean: 317.1 cm/sec LV V1 max P.5 mmHg Ao max P.4 mmHg LV V1 VTI: 38.1 cm Ao mean P.0 mmHg ATIF(I,D): 0.97 cm2 Ao V2 VTI: 107.4 cm ATIF(V,D): 0.93 cm2 sev ratio: 0.35 ATIF indexed to BSA (cm^2/m^2): 0.51 MV E max ray: 58.8 cm/sec TR max ray: 234.4 cm/sec MV A max ray: 88.6 cm/sec TR max P.0 mmHg MV E/A: 0.66 PA V2 max: 145.5 cm/sec Med Peak E' Ray: 5.5 cm/sec PA V2 mean: 96.8 cm/sec E/E' med: 10.6 PA mean P.3 mmHg Lat Peak E' Ray: 6.1 cm/sec PA pr(Accel): 46.5 mmHg E/E' lat: 9.7 E/e' average: 10.2 MV dec time: 0.26 sec SV(LVOT): 104.0 ml Reading Physician:05:20 PM
== END ==
LOC: ECHO 12:24
PROVIDERS: PCP Internal Medicine; Referring Provider Registered Nurse; Visit Provider Registered Nurse
DX: I35.0 Nonrheumatic aortic (valve) stenosis (principal); R01.1 Cardiac murmur, unspecified
CPT/HCPCS: 93306

== ENCOUNTER → 2024-02-01 14:48 | Outpatient (CLI) | payer MEDICARE, OTHER, SELFPAY ==
--- NOTE | 2024-02-01 | DI.RAD.S_ITS ---
PROCEDURE: XR HIP W PEL IF DONE LT 2V INDICATIONS: LEFT HIP PAIN TECHNIQUE: AP pelvis with lateral view(s) of the left hip(s). COMPARISON: [facility], CR, [id number] W PEL IF PERFORMED, 08/26/2017, 11:37. FINDINGS: Bones: Bilateral hip arthroplasties appear stable. No periprosthetic lucency about the left hip are the cyst to suggest loosening or infection. No fractures or dislocations. Pelvic ring appears intact. No suspicious bony lesions. Soft tissues: The visualized bowel gas pattern is normal. No suspicious soft tissue calcifications. IMPRESSION: Bilateral hip arthroplasties appear stable. Dictated by: Escobar Ordonez M.D. on 02/01/2024 at 22:10 Approved by: Escobar Ordonez M.D. on 02/01/2024 at 22:11
--- NOTE | 2024-02-01 | DI.RAD.S_ITS ---
PROCEDURE: XR LUMBAR SPINE 2-3V INDICATIONS: Lumbago with sciatica, left side TECHNIQUE: 3 views of the lumbar spine were acquired. COMPARISON: [facility], CR, L-SPINE 2-3 VIEWS, 08/26/2017, 11:37. [facility], CR, L-SPINE 2-3 VIEWS, 03/11/2014, 15:59. FINDINGS: Bones: 5 [id number] vertebrae are present. Mild scoliosis. Lower lumbar spine facet joint hypertrophy. Multilevel disc space height loss. Anterolisthesis of L4 on L5 measuring 0.5 cm. Small vertebral body osteophytes. Mild height loss at L1, slightly increased. No suspicious bony lesions. Bilateral hip arthroplasties. Soft tissues: Overlying bowel gas pattern is normal. No suspicious soft tissue calcifications. IMPRESSION: Mild height loss at L1 is increased. Grade 1 anterolisthesis of L4 on L5. Dictated by: Escobar Ordonez M.D. on 02/01/2024 at 22:12 Approved by: Escobar Ordonez M.D. on 02/01/2024 at 22:17
== END ==
PROVIDERS: PCP Registered Nurse; Referring Provider Registered Nurse; Visit Provider Registered Nurse
DX: M54.42 Lumbago with sciatica, left side (principal); M43.16 Spondylolisthesis, lumbar region; M25.552 Pain in left hip; Z96.643 Presence of artificial hip joint, bilateral
CPT/HCPCS: 72100; 73502

== ENCOUNTER 2024-02-09 10:41 | Emergency (ER) | payer MEDICARE, OTHER, SELFPAY ==
[2024-02-09] VITALS (19 sets, daily range): BP systolic 116–182; BP diastolic 61–88; PULSE 76–97; RESP 15–23; TEMP 37.2; O2SAT 91–98; BMI 33.5
--- NOTE | 2024-02-09 10:49 | DI.RAD.S_ITS ---
PROCEDURE: XR CHEST 1V INDICATIONS: chest pain TECHNIQUE: One view of the chest was acquired. COMPARISON: [facility], CR, XR CHEST 1V, 11/22/2022, 12:48. FINDINGS: Surgical changes and devices: None. Lungs and pleura: Mild diffuse interstitial prominence No pleural effusions or pneumothorax. Mediastinum: Mediastinal contours appear normal. Mild cardiomegaly. Bones and chest wall: No suspicious bony lesions. Overlying soft tissues appear unremarkable. IMPRESSION: Mild cardiomegaly, mild diffuse interstitial prominence. Dictated by: Kwame Latif M.D. on 02/09/2024 at 11:35 Approved by: Kwame Latif M.D. on 02/09/2024 at 11:36
[2024-02-09 12:24] LABS: Prothrombin Time 11.8 SECONDS (9.4-12.5)
[2024-02-09 12:27] LABS: PTT Partial Thromboplastin Tim 34 SECONDS (25.1-36.5)
[2024-02-09 12:29] LABS: Add Manual Diff / Slide Review NO; Alanine Aminotransferase 29 IU/L (<35); Albumin 4.8 g/dL (3.5-5.0); Albumin Globulin Ratio 1.4 (1.0-2.8); Alkaline Phosphatase 78 U/L (38-126); Aspartate Aminotransferase 60 IU/L (14-36); BUN Creatinine Ratio 15.7 (6-22); Basophils Absolute Auto 0 /uL (0-100); Basophils Percent Auto 0.6 % (0-2); Bilirubin Total 1.4 mg/dL (0.2-1.3); Blood Urea Nitrogen 14 mg/dL (7-17); Calcium 8.8 mg/dL (8.4-10.2); Carbon Dioxide 26 mmol/L (22-32); Chloride 106 mmol/L (98-107); Creatine Kinase 91 U/L (30-135); Eosinophils Absolute Auto 400 /uL (0-450); Eosinophils Percent Auto 5.3 % (2-4); Estimated Glomerular Filt Rate > 60 mL/min (>60); Globulin 3.5 g/dL (1.7-4.1); Glucose 91 mg/dL (80-110); HEMOLYSIS 203 (0-50); Hematocrit 42.1 % (36-46); Hemoglobin 14.2 g/dL (12.0-16.0); Lipase 13 U/L (23-300); Lymphocytes Absolute Auto 2200 /uL (1100-4500); Lymphocytes Percent Auto 29.2 % (25-40); Magnesium 2.4 mg/dL (1.6-2.3); Mean Corpuscular HGB Conc 33.7 % (30-36); Mean Corpuscular Hemoglobin 31.6 PG (26-34); Mean Corpuscular Volume 93.6 fL (80-100); Monocytes Absolute Auto 600 /uL (0-900); Monocytes Percent Auto 7.9 % (3-14); Neutrophils Absolute Auto 4400 /uL (1500-7000); Platelet Count 225 X10^3/uL (150-400); Potassium 5.5 mmol/L (3.4-5.1); Red Cell Distribution Width 13.2 % (11.6-14.8); Sodium 137 mmol/L (137-145); Total Protein 8.3 g/dL (6.3-8.2); White Blood Cell Count 7.7 X10^3/uL (4.5-11.0)
[2024-02-09 12:40] LABS: Troponin I 0.018 ng/mL (0.01-0.034)
--- NOTE | 2024-02-09 14:01 | ED.CHESTPAIN ---
HPI - Chest Pain General Chief Complaint: Chest Pain Stated Complaint: chest pain, fatigue, diff swallowing Time Seen by Provider: 02/09/24 12:43 Source: patient Mode of arrival: Wheelchair Limitations: no limitations History of Present Illness HPI narrative: Patient is 73-year-old female history of chronic fatigue anxiety Nelson's esophagus guard, presenting today with epigastric pain. She reports that she has a band all across her diaphragm area it is worse when she lays down at night she is unable to sleep. She feels short of breath hurts to breathe. Pain radiates all are round to her back not really having any significant chest pain. Occasionally nausea no vomiting. She has been taking something [id number] for pain but she does not know what it is. Denies fever or chills. Related Data Previous Rx's Medication Instructions Recorded adjuvant AS01B (PF)vial 1 of 2 0.5 ml IM ONCE #0.5 mL 11/16/18 (Shingrix Adjuvant Component (PF) intramuscular suspension) Disabled Parking Pass #1 ea 12/25/19 gabapentin 600 mg tablet 600 mg PO TID #270 tabs 03/11/21 Nasal Canula and Tubing #1 ea 06/29/21 Oxygen Tank #1 ea 06/29/21 Stationary Oxygen Concentrator #1 ea 06/29/21 furosemide 20 mg tablet 20 mg PO BID #180 tabs 06/29/21 nitroglycerin 0.4 mg sublingual 0.4 mg sublingual Q5-15M PRN chest 07/07/21 tablet pain #20 tabs duloxetine 30 mg capsule,delayed 30 mg PO DAILY #90 caps 08/11/21 release duloxetine 60 mg capsule,delayed 60 mg PO DAILY #90 caps 08/11/21 release oxybutynin chloride 15 mg 15 mg PO DAILY #90 tabs 08/11/21 tablet,extended release 24 hr cyclobenzaprine 10 mg tablet 10 mg PO BEDTIME #90 tabs 11/26/21 esomeprazole magnesium 40 mg 40 mg PO BID #180 caps 11/26/21 capsule,delayed release (Nexium) metoprolol tartrate 25 mg tablet 25 mg PO DAILY #90 tabs 11/26/21 mirtazapine 15 mg tablet 15 mg PO BEDTIME #90 tabs 11/26/21 valacyclovir 1 gram tablet See Rx Instructions .Route 02/03/22 .COMPLEX #20 tabs meclizine 25 mg tablet 25 mg PO BID PRN dizziness #60 tabs 02/17/22 C-LIDOCAINE/ANTACID 1:1 See Rx Instructions .Route 03/04/22 .COMPLEX #200 mL diphenoxylate-atropine 2.5 See Rx Instructions .Route 03/14/22 mg-0.025 mg tablet .COMPLEX #90 tabs Allergies Allergy/AdvReac Type Severity Reaction Status Date / Time diphenhydramine AdvReac Severe severe Verified 07/05/22 13:27 [DIPHENHYDRAMINE] anxiety. jittery, increase pulse Patient History Medical History Incontinence Sleep apnea Myoclonic jerking Chronic low back pain with left-sided sciatica Labyrinthitis Herpes (Unknown) Chronic fatigue (Unknown) Fibromyalgia (Unknown) IBS (irritable bowel syndrome) (Unknown) Obstructive sleep apnea (Unknown) Anxiety (Unknown) Depression (Unknown) Hypertension (Unknown) Osteoporosis (Unknown) Nelson's esophagus (Unknown) GERD (gastroesophageal reflux disease) (Unknown) Surgical History Hx of hysterectomy (Unknown) History of hip surgery (Unknown) History of total right hip replacement (Unknown) History of total left hip replacement (Unknown) Status post delivery Status post tonsillectomy and adenoidectomy History of third molar tooth extraction Status post colonoscopy Family History Brother Congestive heart failure Father History of heart valve replacement Mother Diabetes mellitus Social History household members: spouse Smoking Status: Former smoker alcohol intake: current Smoking Status: Former smoker Substance Use Type: does not use Exam Initial Vital Signs Initial Vital Signs: Vital Signs Temperature 98.9 F 02/09/24 10:44 Pulse Rate 86 02/09/24 10:44 Respiratory Rate 18 02/09/24 10:44 Blood Pressure 121/78 02/09/24 10:44 Pulse Oximetry 95 02/09/24 10:44 Oxygen Delivery Method Room Air 02/09/24 10:44 GENERAL: [Well-appearing, well-nourished] and in [no acute] distress. HEENT: Head atraumatic,EOMI, pupils reactive, face symmetric, [moist] mucous membranes [EARS:] [Tympanic membranes visualized, no erythema or bulging, no hemotympanum] [PHARYNX:] [No erythema, no tonsillar exudate, no cervical lymphadenopathy] CARDIOVASCULAR: Regular rate and rhythm without murmurs, rubs or gallops. RESPIRATORY: Breath sounds equal bilaterally, no wheezes rales or rhonchi. ABDOMEN: Soft, nontender. Normoactive bowel sounds all 4 quadrants. No guarding or rebound. EXTREMITIES: Normal range of motion, no clubbing or edema. Neurovascularly intact NEUROLOGICAL: Alert and oriented x4.Normal gait and speech. SKIN: Warm, dry, no laceration, no petechiae, no rashes or lesions. Scores HEART Score Heart Score history: Slightly Suspicious Heart Score EKG: Normal Heart Score Age: > or = 65 years old Heart Score risk factors: 1-2 risk factors Heart Score troponin: < or = to normal limit Heart Score Total: 3 Course Orders Ordered: ED Orders 02/09/24 11:56 Complete Blood Count AUTO DIFF Stat Comprehensive Metabolic Panel Stat Lipase Stat Magnesium Stat PTT Partial Thromboplastin Amrvin Stat Prothrombin Time INR Stat Troponin & CK Cardiac Panel Stat 02/09/24 14:07 US abdomen limited Stat 02/09/24 14:21 Troponin I Stat Discontinued Medications Ketorolac Tromethamine (Ketorolac 30 Mg/Ml Vial) 15 mg IV NOW ONE Stop: 02/09/24 14:08 Last Admin: 02/09/24 15:32 Dose: 15 mg Documented By: MPO Vital Signs Vital signs: Vital Signs - 8 hr 02/09/24 12:30 02/09/24 12:31 02/09/24 12:31 Pulse Rate 76 79 Respiratory Rate 21 Blood Pressure 150/83 H Pulse Oximetry 98 97 Oxygen Delivery Method 02/09/24 13:00 02/09/24 13:01 02/09/24 13:01 Pulse Rate 76 77 Respiratory Rate 20 17 Blood Pressure 123/78 Pulse Oximetry 93 93 Oxygen Delivery Method 02/09/24 13:30 02/09/24 13:30 02/09/24 14:00 Pulse Rate 76 77 Respiratory Rate 17 23 Blood Pressure 132/80 Pulse Oximetry 93 94 Oxygen Delivery Method 02/09/24 14:00 02/09/24 14:30 02/09/24 14:30 Pulse Rate 76 Respiratory Rate 22 Blood Pressure 136/61 139/71 Pulse Oximetry 96 Oxygen Delivery Method 02/09/24 15:00 02/09/24 15:00 02/09/24 15:30 Pulse Rate 77 77 Respiratory Rate 23 Blood Pressure 142/86 H Pulse Oximetry 97 96 Oxygen Delivery Method 02/09/24 15:31 02/09/24 15:31 02/09/24 16:08 Pulse Rate 76 97 H Respiratory Rate 22 Blood Pressure 129/61 Pulse Oximetry 97 91 Oxygen Delivery Method 02/09/24 16:10 02/09/24 16:10 02/09/24 16:30 Pulse Rate 82 82 Respiratory Rate 16 Blood Pressure 182/88 H Pulse Oximetry 98 95 Oxygen Delivery Method 02/09/24 16:30 02/09/24 16:56 02/09/24 16:56 Pulse Rate 79 Respiratory Rate 20 Blood Pressure 154/86 H 137/71 Pulse Oximetry 93 Oxygen Delivery Method Room Air 02/09/24 17:00 02/09/24 17:00 Pulse Rate 77 Respiratory Rate 20 Blood Pressure 127/68 Pulse Oximetry 93 Oxygen Delivery Method MDM - Chest Pain Lab Data 02/09/24 11:56 02/09/24 11:56 Labs: Lab Results 02/09/24 02/09/24 Range/Units 11:56 14:21 WBC 7.7 (4.5-11.0) X10^3/uL RBC 4.50 (4.0-5.2) X10^6/uL Hgb 14.2 (12.0-16.0) g/dL Hct 42.1 (36-46) % MCV 93.6 (80-100) fL MCH 31.6 (26-34) PG MCHC 33.7 (30-36) % RDW 13.2 (11.6-14.8) % Plt Count 225 (150-400) X10^3/uL Neut % (Auto) 57.0 (50-75) % Lymph % (Auto) 29.2 (25-40) % Sully % (Auto) 7.9 (3-14) % Eos % (Auto) 5.3 H (2-4) % Baso % (Auto) 0.6 (0-2) % Neut # (Auto) 4400 (2735-6587) /uL Lymph # (Auto) 2200 (7025-7470) /uL Sully # (Auto) 600 (0-900) /uL Eos # (Auto) 400 (0-450) /uL Baso # (Auto) 0 (0-100) /uL PT 11.8 (9.4-12.5) SECONDS INR 1.0 (0.9-1.3) APTT 34 (25.1-36.5) SECONDS Sodium 137 (137-145) mmol/L Potassium 5.5 H (3.4-5.1) mmol/L Chloride 106 (98-107) mmol/L Carbon Dioxide 26 (22-32) mmol/L BUN 14 (7-17) mg/dL Creatinine 0.89 (0.52-1.04) mg/dL Estimated GFR > 60 (>60) mL/min BUN/Creatinine Ratio 15.7 (6-22) Glucose 91 (80-110) mg/dL Calcium 8.8 (8.4-10.2) mg/dL Magnesium 2.4 H (1.6-2.3) mg/dL Total Bilirubin 1.4 H (0.2-1.3) mg/dL AST 60 H (14-36) IU/L ALT 29 (<35) IU/L Alkaline Phosphatase 78 (38-126) U/L Total Creatine Kinase 91 (30-135) U/L Troponin I 0.018 0.017 (0.01-0.034) ng/mL Total Protein 8.3 H (6.3-8.2) g/dL Albumin 4.8 (3.5-5.0) g/dL Globulin 3.5 (1.7-4.1) g/dL Albumin/Globulin Ratio 1.4 (1.0-2.8) Lipase 13 L (23-300) U/L Urine Dip Bedside Urine Glucose Negative Bedside Urine Bilirubin - Negative Bedside Urine Ketone - Negative Urine Specific Gore 1.015 Bedside Urine Occult Blood - Negative Bedside Urine pH 6.0 Bedside Urine Protein - Negative Bedside Urine Urobilinogen - Negative Bedside Urine Nitrite - Negative Bedside Urine Leukocytes - Negative Esterase Imaging Data US - abdomen: Radiologist's Impression: PROCEDURE: US ABDOMEN LIMITED INDICATIONS: DIFFUSE RUQ PAIN TECHNIQUE: Real-time focused scanning was performed of the abdomen, with image documentation. COMPARISON: None. FINDINGS: The liver is normal in size and demonstrates no suspicious lesions. The liver demonstrates a mildly coarsened echotexture. No findings of gallstones or sludge are seen. The gallbladder wall is not thickened, measuring 3 mm or less. No specific pericholecystic fluid is seen. The sonographic Kidd sign is negative. There is no biliary dilatation, the common bile duct measures 5 mm. The pancreas is not well seen, secondary to overlying bowel gas. IMPRESSION: The gallbladder demonstrates a normal sonographic appearance. No biliary dilatation is seen. Dictated by: Pedro Iglesias M.D. on 02/09/2024 at 15:19 Chest x-ray: Radiologist's Impression: PROCEDURE: XR CHEST 1V INDICATIONS: chest pain TECHNIQUE: One view of the chest was acquired. COMPARISON: [facility], , XR CHEST 1V, 11/22/2022, 12:48. FINDINGS: Surgical changes and devices: None. Lungs and pleura: Mild diffuse interstitial prominence No pleural effusions or pneumothorax. Mediastinum: Mediastinal contours appear normal. Mild cardiomegaly. Bones and chest wall: No suspicious bony lesions. Overlying soft tissues appear unremarkable. IMPRESSION: Mild cardiomegaly, mild diffuse interstitial prominence. Dictated by: Kwame Latif M.D. on 02/09/2024 at 11:35 ECG Data Interpretation: Sinus rhythm rate 80 IN interval 152 QRS [address] changes MDM Narrative Medical decision making narrative: Patient 73-year-old female presents today with epigastric like pain ongoing for a couple of days. It does not seem to be radiating into her chest it a band all around her abdomen. Blood work has been reviewed no leukocytosis or anemia, potassium noted to be mildly high at 5.5 creatinine 0.89, bilirubin 1.4 AST 60 ALT 29 troponin negative x2 lipase 13 Chest x-ray reviewed mild cardiomegaly, ultrasound reviewed gallbladder demonstrates normal-appearing EKGs have been reviewed as above no acute ischemia Patient having some epigastric bandlike pain ongoing for a couple of days. No evidence of acute coronary syndrome cholecystitis cholelithiasis pancreatitis. No real chest pain heart score is 3 discussed with her she may require further follow-up and evaluation. Sure she needs further imaging on CT she has no nausea or vomiting abdomen is soft. Unclear what is causing her pain but she feels ready and able to go at this time. Pain actually improved after Toradol. Encouraged her to return if needed Discharge Plan Departure Patient Disposition: Home Clinical Impression: Atypical chest pain Instructions: DI for Atypical Chest Pain Activity Restrictions/Additional Instructions: *You have been diagnosed with atypical chest *What to do: This time having some abdominal pain. May or may not require further heart workup. Ultrasound did not show any evidence of gallbladder disease *Continue to take medications as directed *Follow up with your primary care provider in 2-3 days or call [phone] *Return to ER if you should have increasing pain nausea vomiting chest pain shortness of breath [or] any new, worsening or concerning symptoms Prescriptions: No Action adjuvant AS01B (PF)vial 1 of 2 [Shingrix Adjuvant Component-PF] suspension 0.5 ml IM ONCE Qty: 0.5 0RF gabapentin 600 mg tablet 600 mg PO TID Qty: 270 2RF nitroglycerin 0.4 mg tablet, sublingual 0.4 mg sublingual Q5-15M PRN (Reason: chest pain) Qty: 20 1RF Rx Instructions: do not exceed 3 doses per episode cyclobenzaprine 10 mg tablet 10 mg PO BEDTIME Qty: 90 2RF esomeprazole magnesium [Nexium] 40 mg capsule,delayed release(DR/EC) 40 mg PO BID Qty: 180 3RF metoprolol tartrate 25 mg tablet 25 mg PO DAILY Qty: 90 2RF mirtazapine 15 mg tablet 15 mg PO BEDTIME Qty: 90 3RF valacyclovir 1 gram tablet See Rx Instructions .ROUTE .COMPLEX Qty: 20 0RF Dose Instruction: TAKE 1/2 TABLET BY MOUTH TWICE DAILY Rx Instructions: TAKE 1/2 TABLET BY MOUTH TWICE DAILY meclizine 25 mg tablet 25 mg PO BID PRN (Reason: dizziness) Qty: 60 2RF C-LIDOCAINE/ANTACID 1:1 See Rx Instructions .ROUTE .COMPLEX Qty: 200 3RF Dose Instruction: SWISH AND SPIT UPTO 4 TIMES A DAY NEEDED Rx Instructions: SWISH AND SPIT UPTO 4 TIMES A DAY NEEDED diphenoxylate-atropine 2.5-0.025 mg tablet See Rx Instructions .ROUTE .COMPLEX Qty: 90 0RF Dose Instruction: LIKE 1 TABLET BY MOUTH EVERY 6 TO 8 HOURS NEEDED FOR DIARRHEA Rx Instructions: LIKE 1 TABLET BY MOUTH EVERY 6 TO 8 HOURS NEEDED FOR DIARRHEA (DME) Disabled Parking Pass Qty: 1 0RF Dose Instruction: As directed Rx Instructions: As directed (DME) Stationary Oxygen Concentrator See Rx Instructions .Route .MEDSUPPLY Qty: 1 0RF Rx Instructions: Use to administer 2LPM continuous oxygen (DME) Nasal Canula and Tubing See Rx Instructions .Route .MEDSUPPLY Qty: 1 0RF Rx Instructions: Used to administer continuous oxygen. (DME) Oxygen Tank See Rx Instructions .Route .MEDSUPPLY Qty: 1 0RF Rx Instructions: Use to administer 2LPM continuous oxygen for transportation furosemide 20 mg tablet 20 mg PO BID Qty: 180 3RF oxybutynin chloride 15 mg tablet extended release 24hr 15 mg PO DAILY Qty: 90 1RF duloxetine 30 mg capsule,delayed release(DR/EC) 30 mg PO DAILY Qty: 90 3RF duloxetine 60 mg capsule,delayed release(DR/EC) 60 mg PO DAILY Qty: 90 3RF Referrals: Shanika Sutherland ARNP [Primary Care Provider] - Stand Alone Forms: Patient Portal/API
--- NOTE | 2024-02-09 14:07 | DI.US.S_ITS ---
PROCEDURE: US ABDOMEN LIMITED INDICATIONS: DIFFUSE RUQ PAIN TECHNIQUE: Real-time focused scanning was performed of the abdomen, with image documentation. COMPARISON: None. FINDINGS: The liver is normal in size and demonstrates no suspicious lesions. The liver demonstrates a mildly coarsened echotexture. No findings of gallstones or sludge are seen. The gallbladder wall is not thickened, measuring 3 mm or less. No specific pericholecystic fluid is seen. The sonographic Kidd sign is negative. There is no biliary dilatation, the common bile duct measures 5 mm. The pancreas is not well seen, secondary to overlying bowel gas. IMPRESSION: The gallbladder demonstrates a normal sonographic appearance. No biliary dilatation is seen. Dictated by: Pedro Iglesias M.D. on 02/09/2024 at 15:19 Approved by: Pedro Iglesias M.D. on 02/09/2024 at 15:20
[2024-02-09] MEDS: KETOROLAC 30 MG/ML VIAL 15 MG IV (15:32)
[2024-02-09 17:12] LABS: Troponin I 0.017 ng/mL (0.01-0.034)
== END 2024-02-09 17:40 | disposition home or self-care (01) ==
PROVIDERS: Emergency Provider Emergency Medicine; PCP Registered Nurse
DX: R07.89 Other chest pain (principal)
CPT/HCPCS: 36415; 71045; 76705; 80053; 81003; 82550; 83690; 83735; 84484; 85025; 85610; 85730; 93005; 96374; 99284; J1885

== ENCOUNTER → 2024-02-19 13:32 | Outpatient (CLI) | payer MEDICARE, OTHER, SELFPAY ==
--- NOTE | 2024-02-19 13:34 | DI.RAD.S_ITS ---
PROCEDURE: XR KNEE RT 1TO2V INDICATIONS: CHRONIC RT KNEE PAIN TECHNIQUE: To views of the knee were acquired. COMPARISON: None. FINDINGS: Bones: No fractures or dislocations. Tricompartmental osteoarthritic changes with osteophytosis and joint space narrowing. There is moderate lateral compartment joint space narrowing. No suspicious bony lesions. Soft tissues: Small joint effusion. No suspicious soft tissue calcifications. IMPRESSION: Moderate osteoarthritic changes of the knee, most pronounced within the lateral compartment. Dictated by: Roddy Coburn M.D. on 02/19/2024 at 15:15 Approved by: Roddy Coburn M.D. on 02/19/2024 at 15:16
== END ==
PROVIDERS: PCP Registered Nurse; Referring Provider Registered Nurse; Visit Provider Registered Nurse
DX: M25.561 Pain in right knee (principal); M25.461 Effusion, right knee; G89.29 Other chronic pain
CPT/HCPCS: 73560

== ENCOUNTER 2024-12-03 09:21 | Emergency (ER) | payer MEDICARE, OTHER, SELFPAY ==
[2024-12-03] VITALS (17 sets, daily range): BP systolic 109–152; BP diastolic 60–87; PULSE 67–79; RESP 13–35; TEMP 36.8; O2SAT 88–95
--- NOTE | 2024-12-03 09:37 | DI.CT.S_ITS ---
PROCEDURE: CT HEAD/BRAIN WO CON INDICATIONS: fall TECHNIQUE: Noncontrast 4.5 mm thick angled axial sections acquired from the foramen magnum to the vertex, with coronal and sagittal reformats. For radiation dose reduction, the following was used: automated exposure control, adjustment of mA and/or kV according to patient size. COMPARISON: None. FINDINGS: Image quality: Diagnostic. CSF spaces: Basal cisterns are patent. No extra-axial fluid collections. The ventricles are symmetric in size and shape. Brain: No intracranial bleeds or masses. There is cerebral volume loss for age, with resultant ventricular and sulcal prominence. There are periventricular and deep white matter chronic small vessel ischemic changes. There is intracranial internal carotid artery atherosclerosis. Skull and face: Calvarium and visualized facial bones appear intact, without suspicious lesions. Small right frontal scalp contusion. Sinuses: Visualized sinuses and mastoids are clear. IMPRESSION: No acute intracranial pathology. Dictated by: Marj Juarez MD, PhD on 12/03/2024 at 10:00 Approved by: Marj Juarez MD, PhD on 12/03/2024 at 10:02
--- NOTE | 2024-12-03 09:38 | DI.CT.S_ITS ---
PROCEDURE: CT CERVICAL SPINE WO CON INDICATIONS: fall, injury, pain. TECHNIQUE: Noncontrast 3 mm thick sections acquired from the skull base to the T4 level. Sagittal and coronal reformats were then constructed. For radiation dose reduction, the following was used: automated exposure control, adjustment of mA and/or kV according to patient size. COMPARISON: None. FINDINGS: Image quality: Excellent. Bones: No fractures or dislocations. Visualized superior ribs are intact. Spine degenerative disc disease and facet arthropathy. Soft tissues: Prevertebral soft tissues are normal in thickness. No paravertebral hematomas. No apical pneumothoraces. IMPRESSION: No fracture. No acute osseous lesion. If symptoms and/or clinical suspicion for pathology persists, evaluation with MRI should be considered for further assessment. Dictated by: Marj Juarez MD, PhD on 12/03/2024 at 9:56 Approved by: Marj Juarez MD, PhD on 12/03/2024 at 10:00
--- NOTE | 2024-12-03 09:45 | DI.RAD.S_ITS ---
PROCEDURE: XR CHEST 1V INDICATIONS: modified trauma TECHNIQUE: One view of the chest was acquired. COMPARISON: [facility], CR, XR CHEST 1V, 02/09/2024, 11:19. FINDINGS: Surgical changes and devices: None. Lungs and pleura: Lungs are clear of acute opacities. Mild bilateral lung interstitial prominence is without significant change. No pleural effusions or pneumothorax. Mediastinum: Mediastinal contours appear normal. Heart is mildly enlarged. Bones and chest wall: No suspicious bony lesions. Overlying soft tissues appear unremarkable. IMPRESSION: No acute cardiopulmonary abnormality is seen. Dictated by: Marj Juraez MD, PhD on 12/03/2024 at 10:08 Approved by: Marj Juarez MD, PhD on 12/03/2024 at 10:09
[2024-12-03 10:24] LABS: Appearance Urine UA CLOUDY; Bilirubin Urine UA 1+ (NEGATIVE); Color Urine UA YELLOW; Glucose Urine UA NEGATIVE (Negative); Ketones Urine UA 1+ (NEGATIVE); Leukocyte Esterase Urine UA 2+ (NEGATIVE); Nitrite Urine UA POSITIVE (Negative); Occult Blood Urine UA TRACE-INTACT (Negative); Protein Urine UA 1+ (Negative); Specific Gravity Urine UA 1.015 (1.000-1.035)
[2024-12-03 10:26] LABS: Urine Volume 10mL (spun)
[2024-12-03 10:29] LABS: Ictotest Urine Negative (Negative)
[2024-12-03 10:33] LABS: Bacteria Urine Many (>30); Culture Indicated Urine Specimen Cultured; RBC Urine 1-5/HPF (0-5/HPF); Squamous Epithelial Cell Urine 0-1 /HPF (0-5/HPF); Triple Phosphate Crystal Urine Moderate; WBC Urine 30-100/HPF (0-5/HPF)
[2024-12-03 10:50] LABS: Add Manual Diff / Slide Review NO; Basophils Absolute Auto 0 /uL (0-100); Basophils Percent Auto 0.5 % (0-2); Eosinophils Absolute Auto 100 /uL (0-450); Eosinophils Percent Auto 2.3 % (2-4); Hematocrit 44.9 % (36-46); Hemoglobin 15.2 g/dL (12.0-16.0); Lymphocytes Absolute Auto 1100 /uL (1100-4500); Lymphocytes Percent Auto 18.8 % (25-40); Mean Corpuscular HGB Conc 33.8 % (30-36); Mean Corpuscular Hemoglobin 31.5 PG (26-34); Mean Corpuscular Volume 93.2 fL (80-100); Monocytes Absolute Auto 600 /uL (0-900); Monocytes Percent Auto 9.3 % (3-14); Neutrophils Absolute Auto 4200 /uL (1500-7000); Neutrophils Percent Auto 69.1 % (50-75); Platelet Count 186 X10^3/uL (150-400); Red Blood Cell Count 4.82 X10^6/uL (4.0-5.2); Red Cell Distribution Width 14.5 % (11.6-14.8); White Blood Cell Count 6.1 X10^3/uL (4.5-11.0)
[2024-12-03 11:02] LABS: INR 1.1 (0.9-1.3); Prothrombin Time 12.9 SECONDS (9.4-12.5)
[2024-12-03 11:05] LABS: Alanine Aminotransferase 25 IU/L (<35); Albumin 3.9 g/dL (3.5-5.0); Albumin Globulin Ratio 1.3 (1.0-2.8); Alkaline Phosphatase 58 U/L (38-126); Aspartate Aminotransferase 42 IU/L (14-36); BUN Creatinine Ratio 15.4 (6-22); Bilirubin Total 1.2 mg/dL (0.2-1.3); Blood Urea Nitrogen 14 mg/dL (7-17); Calcium 8.8 mg/dL (8.4-10.2); Carbon Dioxide 35 mmol/L (22-32); Chloride 95 mmol/L (98-107); Creatine Kinase 62 U/L (30-135); Estimated Glomerular Filt Rate > 60 mL/min (>60); Globulin 2.9 g/dL (1.7-4.1); Glucose 97 mg/dL (80-110); HEMOLYSIS 16 (0-50); Lipase 13 U/L (23-300); Magnesium 1.8 mg/dL (1.6-2.3); PTT Partial Thromboplastin Tim 33 SECONDS (25.1-36.5); Sodium 137 mmol/L (137-145); Total Protein 6.8 g/dL (6.3-8.2)
--- NOTE | 2024-12-03 11:07 | EKG_ITS ---
[id number] [address] Test Date: 2024-12-03 Pat Name: Stephanie Lucas Department: Room: Gender: Female Vice President Quality: ROSALIA : 1950 Requested By: Order Number: [id number] Reading MD: Zackery Hanna MD Measurements Intervals [place] Rate: 70 P: 30 NH: 166 QRS: 12 QRSD: 80 T: -49 QT: 394 QTc: 425 Interpretive Statements Normal sinus rhythm Nonspecific ST and T wave abnormality Electronically Signed On 12-03-2024 11:32:11 PST by Zackery Hanna MD
[2024-12-03 11:17] LABS: NT-proBNP (BNP-Adult 18+) 136 pg/mL (<125); Troponin I < 0.012 ng/mL (0.01-0.034)
--- NOTE | 2024-12-03 11:18 | ED_ITS ---
HPI - Fall General Chief Complaint: Fall Stated Complaint: Fall Time Seen by Provider: 12/03/24 09:39 Source: EMS Mode of arrival: EMS History of Present Illness HPI Narrative: 74-year-old female with history of dementia found by about 0600 upstairs with bleeding from the right side of her forehead/face, no witnessed fall or trauma, no flap play suspected. No nausea or vomiting. Transport by EMS with C-collar in place. No recent illness symptoms known to . No other history known. Unwitnessed fall. Related Data Previous Rx's Medication Instructions Recorded adjuvant AS01B (PF)vial 1 of 2 0.5 ml IM ONCE #0.5 mL 11/16/18 (Shingrix Adjuvant Component (PF) intramuscular suspension) Disabled Parking Pass #1 ea 12/25/19 gabapentin 600 mg tablet 600 mg PO TID #270 tabs 03/11/21 Nasal Canula and Tubing #1 ea 06/29/21 Oxygen Tank #1 ea 06/29/21 Stationary Oxygen Concentrator #1 ea 06/29/21 furosemide 20 mg tablet 20 mg PO BID #180 tabs 06/29/21 nitroglycerin 0.4 mg sublingual 0.4 mg sublingual Q5-15M PRN chest 07/07/21 tablet pain #20 tabs duloxetine 30 mg capsule,delayed 30 mg PO DAILY #90 caps 08/11/21 release duloxetine 60 mg capsule,delayed 60 mg PO DAILY #90 caps 08/11/21 release oxybutynin chloride 15 mg 15 mg PO DAILY #90 tabs 08/11/21 tablet,extended release 24 hr cyclobenzaprine 10 mg tablet 10 mg PO BEDTIME #90 tabs 11/26/21 esomeprazole magnesium 40 mg 40 mg PO BID #180 caps 11/26/21 capsule,delayed release (Nexium) metoprolol tartrate 25 mg tablet 25 mg PO DAILY #90 tabs 11/26/21 mirtazapine 15 mg tablet 15 mg PO BEDTIME #90 tabs 11/26/21 valacyclovir 1 gram tablet See Rx Instructions .Route 02/03/22 .COMPLEX #20 tabs meclizine 25 mg tablet 25 mg PO BID PRN dizziness #60 tabs 02/17/22 C-LIDOCAINE/ANTACID 1:1 See Rx Instructions .Route 03/04/22 .COMPLEX #200 mL diphenoxylate-atropine 2.5 See Rx Instructions .Route 03/14/22 mg-0.025 mg tablet .COMPLEX #90 tabs cephalexin 500 mg capsule 500 mg PO QID 7 days #28 caps 12/03/24 Allergies Allergy/AdvReac Type Severity Reaction Status Date / Time diphenhydramine AdvReac Severe severe Verified 07/05/22 13:27 [DIPHENHYDRAMINE] anxiety. jittery, increase pulse Patient History Medical History Incontinence Sleep apnea Myoclonic jerking Chronic low back pain with left-sided sciatica Labyrinthitis Herpes (Unknown) Chronic fatigue (Unknown) Fibromyalgia (Unknown) IBS (irritable bowel syndrome) (Unknown) Obstructive sleep apnea (Unknown) Anxiety (Unknown) Depression (Unknown) Hypertension (Unknown) Osteoporosis (Unknown) Nelson's esophagus (Unknown) GERD (gastroesophageal reflux disease) (Unknown) Surgical History Hx of hysterectomy (Unknown) History of hip surgery (Unknown) History of total right hip replacement (Unknown) History of total left hip replacement (Unknown) Status post delivery Status post tonsillectomy and adenoidectomy History of third molar tooth extraction Status post colonoscopy Family History Brother Congestive heart failure Father History of heart valve replacement Mother Diabetes mellitus Social History household members: spouse Smoking Status: Former smoker alcohol intake: current Smoking Status: Former smoker Exam Narrative Exam Narrative: GENERAL: Well-developed patient, in mild distress. HEAD: Thin 1 cm linear right forehead laceration EYES: Pupils equal round and reactive. Extraocular motions intact. No scleral icterus. No injection or drainage. ENT: Nose without bleeding, purulent drainage. Throat without erythema, tonsillar hypertrophy or exudate. Airway patent. NECK: Trachea midline. Non tender. Cervical collar in place CARDIOVASCULAR: Regular rate and rhythm without murmurs, gallops, or rubs. RESPIRATORY: Clear to auscultation. Breath sounds equal bilaterally. No wheezes, rales, or rhonchi. GASTROINTESTINAL: Abdomen soft, non-tender, nondistended. EXTREMITIES: No edema or joint tenderness. BACK: Nontender without deformity or crepitance. No flank tenderness. NEURO: History of dementia, agitated but directable. Motor functions grossly nonfocal, moving all extremities, no facial droop, conjugate gaze with equal pupils. SKIN: No rash or erythema of visible areas Initial Vital Signs Initial Vital Signs: Vital Signs Pulse Rate 70 12/03/24 09:24 Pulse Oximetry 89 L 12/03/24 09:24 Procedures Laceration Repair Laceration 1: Site: face (forehead) Side (If applicable): right Size (cm): 1 Description: linear Skin layer closed with: steri-strips (x4 10/30 strips) Course Orders Ordered: Discontinued Medications Bacitracin (Bacitracin Oint 0.9 Gm Pckt) 1 applic TOP NOW ONE Stop: 12/03/24 12:02 Last Admin: 12/03/24 12:25 Dose: 1 applic Documented By: JASSON POTASSIUM CHLORIDE IN WATER (Potassium Cl 10 Meq/100 Ml Kaila) 10 meq in 100 mls @ 100 mls/hr IV Q1H IZA Stop: 12/03/24 13:29 Last Admin: 12/03/24 12:29 Dose: Not Given Documented By: Infusion: 12/03/24 12:29 Dose: 0 mls/hr Documented By: Infusion: 12/03/24 11:35 Dose: 60 mls/hr Documented By: Admin: 12/03/24 11:32 Dose: 100 mls/hr Documented By: JASSON Ceftriaxone Sodium 1,000 mg/ (Sodium Chloride) 100 mls @ 200 mls/hr IV NOW ONE Stop: 12/03/24 11:58 Last Infusion: 12/03/24 13:06 Dose: Infused Documented By: Admin: 12/03/24 12:24 Dose: 200 mls/hr Documented By: JASSON Potassium Chloride (Potassium Chloride 20 Meq/15 Ml Udc) 40 meq PO NOW ONE Stop: 12/03/24 12:30 Last Admin: 12/03/24 12:47 Dose: 40 meq Documented By: SHRUTI Potassium Chloride (Potassium Chloride 20 Meq/15 Ml Udc) 40 meq PO NOW ONE Stop: 12/03/24 12:31 Last Admin: 12/03/24 12:47 Dose: Not Given Documented By: MPO Vital Signs Vital signs: Vital Signs - 8 hr 12/03/24 09:24 12/03/24 09:30 12/03/24 09:31 Temperature Pulse Rate 70 74 Respiratory Rate 13 Blood Pressure 122/60 Pulse Oximetry 89 L Oxygen Delivery Method 12/03/24 09:31 12/03/24 09:33 12/03/24 10:08 Temperature 98.2 F Pulse Rate 74 79 Respiratory Rate 17 16 Blood Pressure 122/66 128/83 Pulse Oximetry 89 L 89 L Oxygen Delivery Method Room Air 12/03/24 10:08 12/03/24 10:30 12/03/24 10:31 Temperature Pulse Rate 72 70 Respiratory Rate 20 31 H Blood Pressure 117/81 Pulse Oximetry 88 L 91 Oxygen Delivery Method 12/03/24 10:31 12/03/24 11:00 12/03/24 11:01 Temperature Pulse Rate 69 67 Respiratory Rate 19 24 Blood Pressure 126/79 Pulse Oximetry 91 95 Oxygen Delivery Method 12/03/24 11:01 Temperature Pulse Rate 69 Respiratory Rate 22 Blood Pressure Pulse Oximetry 95 Oxygen Delivery Method MDM - Fall Lab Data Attestation: I reviewed the patient's lab results. Lab results narrative: White blood cell count 6100, hemoglobin 15.2, platelets adequate. Sodium normal, serum CO2 35 increased. Potassium 2.6 low. BUN 14 with creatinine 0.91 noted, normal glucose 97. Liver functions normal. Troponin negative/unmeasurable. Urinalysis suspicious for infection. 12/03/24 10:40 12/03/24 10:40 Labs: Lab Results 12/03/24 12/03/24 12/03/24 Range/Units 10:05 10:40 12:52 WBC 6.1 (4.5-11.0) X10^3/uL RBC 4.82 (4.0-5.2) X10^6/uL Hgb 15.2 (12.0-16.0) g/dL Hct 44.9 (36-46) % MCV 93.2 (80-100) fL MCH 31.5 (26-34) PG MCHC 33.8 (30-36) % RDW 14.5 (11.6-14.8) % Plt Count 186 (150-400) X10^3/uL Neut % (Auto) 69.1 (50-75) % Lymph % (Auto) 18.8 L (25-40) % Hitchcock % (Auto) 9.3 (3-14) % Eos % (Auto) 2.3 (2-4) % Baso % (Auto) 0.5 (0-2) % Neut # (Auto) 4200 (3410-7751) /uL Lymph # (Auto) 1100 (8397-2019) /uL [place]cock # (Auto) 600 (0-900) /uL Eos # (Auto) 100 (0-450) /uL Baso # (Auto) 0 (0-100) /uL PT 12.9 H (9.4-12.5) SECONDS INR 1.1 (0.9-1.3) APTT 33 (25.1-36.5) SECONDS Sodium 137 (137-145) mmol/L Potassium 2.6 L* (3.4-5.1) mmol/L Chloride 95 L (98-107) mmol/L Carbon Dioxide 35 H (22-32) mmol/L BUN 14 (7-17) mg/dL Creatinine 0.91 (0.52-1.04) mg/dL Estimated GFR > 60 (>60) mL/min BUN/Creatinine Ratio 15.4 (6-22) Glucose 97 (80-110) mg/dL Calcium 8.8 (8.4-10.2) mg/dL Magnesium 1.8 (1.6-2.3) mg/dL Total Bilirubin 1.2 (0.2-1.3) mg/dL AST 42 H (14-36) IU/L ALT 25 (<35) IU/L Alkaline Phosphatase 58 (38-126) U/L Total Creatine Kinase 62 66 (30-135) U/L Troponin I < 0.012 < 0.012 (0.01-0.034) ng/mL NT-Pro-B Natriuret Pep 136 H (<125) pg/mL Total Protein 6.8 (6.3-8.2) g/dL Albumin 3.9 (3.5-5.0) g/dL Globulin 2.9 (1.7-4.1) g/dL Albumin/Globulin Ratio 1.3 (1.0-2.8) Lipase 13 L (23-300) U/L Urine Color Yellow Urine Appearance Cloudy Urine pH 8.0 (4.5-8.0) Ur Specific [place] 1.015 (1.000-1.035) Urine Protein 1+ H (Negative) Urine Glucose (UA) Negative (Negative) g/dL Urine Ketones 1+ H (NEGATIVE) Urine Occult Blood Trace-intact (Negative) Urine Nitrate Positive H (Negative) Urine Bilirubin 1+ H (NEGATIVE) Ur Bilirubin Confirm Negative (Negative) Urine Urobilinogen 2.0 H (0.2) E.U./dL Ur Leukocyte Esterase 2+ H (NEGATIVE) Urine RBC 1-5/hpf (0-5/HPF) Urine WBC 30-100/hpf H (0-5/HPF) Ur Squamous Epith Cells 0-1 /hpf (0-5/HPF) Triple Phos Crystals Moderate Urine Bacteria Many (>30) H (None) Ur Culture Indicated? Specimen cultured Vol Urine Centrifuged 10ml (spun) Imaging Data Chest x-ray: Radiologist's Impression: [address] [address] XRay Report Signed Patient: Stephanie Lucas MR#: [id number] : 1950 Acct:[id number] Age/Sex: 74 / F Date of Service: 12/03/24 Loc: ED Accession Number: [id number] Procedure: XR chest 1V Ordering Provider: Danny Lugo MD PROCEDURE: XR CHEST 1V INDICATIONS: modified trauma TECHNIQUE: One view of the chest was acquired. COMPARISON: [facility], , XR CHEST 1V, 02/09/2024, 11:19. FINDINGS: Surgical changes and devices: None. Lungs and pleura: Lungs are clear of acute opacities. Mild bilateral lung interstitial prominence is without significant change. No pleural effusions or pneumothorax. Mediastinum: Mediastinal contours appear normal. Heart is mildly enlarged. Bones and chest wall: No suspicious bony lesions. Overlying soft tissues appear unremarkable. IMPRESSION: No acute cardiopulmonary abnormality is seen. Dictated by: Marj Juarez MD, PhD on 12/03/2024 at 10:08 Approved by: Marj Juarez MD, PhD on 12/03/2024 at 10:09 CT scan - head: Radiologist's Impression: [address] [address] [address] Scan Report Signed Patient: Stephanie Lucas MR#: [id number] : 1950 Acct:[id number] Age/Sex: 74 / F Date of Service: 12/03/24 Loc: ED Accession Number: [id number] Procedure: CT head/brain wo con Ordering Provider: Danny Lugo MD PROCEDURE: CT HEAD/BRAIN WO CON INDICATIONS: fall TECHNIQUE: Noncontrast 4.5 mm thick angled axial sections acquired from the foramen magnum to the vertex, with coronal and sagittal reformats. For radiation dose reduction, the following was used: automated exposure control, adjustment of mA and/or kV according to patient size. COMPARISON: None. FINDINGS: Image quality: Diagnostic. CSF spaces: Basal cisterns are patent. No extra-axial fluid collections. The ventricles are symmetric in size and shape. Brain: No intracranial bleeds or masses. There is cerebral volume loss for age, with resultant ventricular and sulcal prominence. There are periventricular and deep white matter chronic small vessel ischemic changes. There is intracranial internal carotid artery atherosclerosis. Skull and face: Calvarium and visualized facial bones appear intact, without suspicious lesions. Small right frontal scalp contusion. Sinuses: Visualized sinuses and mastoids are clear. IMPRESSION: No acute intracranial pathology. Dictated by: Marj Juarez MD, PhD on 12/03/2024 at 10:00 Approved by: Marj Juaerz MD, PhD on 12/03/2024 at 10:02 CT - cervical spine: Radiologist's Impression: Close Chest X-Ray (Signed) Marj Juarez - 12/03/[address] (Signed) Marj Juarez - 12/03/[address] (Signed) Marj Juarez - 12/03/24 [place] [address] CT Scan Report Signed Patient: Stephanie Lucas MR#: [id number] : 1950 Acct:[id number] Age/Sex: 74 / F Date of Service: 12/03/24 Loc: ED Accession Number: [id number] Procedure: CT cervical spine wo con Ordering Provider: Danny Lugo MD PROCEDURE: CT CERVICAL SPINE WO CON INDICATIONS: fall, injury, pain. TECHNIQUE: Noncontrast 3 mm thick sections acquired from the skull base to the T4 level. Sagittal and coronal reformats were then constructed. For radiation dose reduction, the following was used: automated exposure control, adjustment of mA and/or kV according to patient size. COMPARISON: None. FINDINGS: Image quality: Excellent. Bones: No fractures or dislocations. Visualized superior ribs are intact. Spine degenerative disc disease and facet arthropathy. Soft tissues: Prevertebral soft tissues are normal in thickness. No paravertebral hematomas. No apical pneumothoraces. IMPRESSION: No fracture. No acute osseous lesion. If symptoms and/or clinical suspicion for pathology persists, evaluation with MRI should be considered for further assessment. Dictated by: Marj Juarez MD, PhD on 12/03/2024 at 9:56 Approved by: Marj Juarez MD, PhD on 12/03/2024 at 10:00 ECG Data Attestation: I personally reviewed and interpreted this ECG as follows: Interpretation: Normal sinus rhythm with rate of 70, no obvious ST segment elevation or depression changes. Some movement artifact anterior lead noted. T-wave inversion lead 3 but upright in contiguous inferior leads. IN 166, QRS 80, QTC 425. MDM Narrative Medical decision making narrative: 74-year-old female with history of dementia, had ground level fall at home, unclear if there is any loss of consciousness, she does not seem to be remembering the event, no focal weakness, no nausea or vomiting. CT head and cervical spine studies ordered. EKG, labs sent, urinalysis sent. EKG normal sinus rhythm with rate of 70, no obvious ischemic changes. Troponin negative/unmeasurable. Potassium 2.6 low, IV potassium while awaiting CT imaging results. Urinalysis looks suspicious for infection, patient reportedly already on antibiotics, cephalexin listed, we will give IV ceftriaxone. Repeat troponin also negative/unmeasurable. Chest x-ray no acute changes. See radiology report CT head no acute changes. See radiology report. CT cervical spine shows no acute changes. See radiology report Steri-Strips series applied to close small linear right forehead laceration, see nursing note. Cervical collar removed by patient after CT cervical spine, seemed to be moving her neck well [id number]. No obvious neuro deficits. Discharge paperwork was being prepared, apparently nursing reports patient/ eloped, could not be located in waiting room when called. Eloped. Discharge Plan Departure Patient Disposition: Elopement Clinical Impression: Fall from ground level, Abrasion of face, Urinary tract infection, Eloped from emergency department, Hypokalemia Instructions: DI for Urinary Tract Infection (UTI), How to Prevent Falls Prescriptions: New cephalexin 500 mg capsule 500 mg PO QID 7 Days Qty: 28 0RF No Action adjuvant AS01B (PF)vial 1 of 2 [Shingrix Adjuvant Component-PF] suspension 0.5 ml IM ONCE Qty: 0.5 0RF gabapentin 600 mg tablet 600 mg PO TID Qty: 270 2RF nitroglycerin 0.4 mg tablet, sublingual 0.4 mg sublingual Q5-15M PRN (Reason: chest pain) Qty: 20 1RF Rx Instructions: do not exceed 3 doses per episode cyclobenzaprine 10 mg tablet 10 mg PO BEDTIME Qty: 90 2RF esomeprazole magnesium [Nexium] 40 mg capsule,delayed release(DR/EC) 40 mg PO BID Qty: 180 3RF metoprolol tartrate 25 mg tablet 25 mg PO DAILY Qty: 90 2RF mirtazapine 15 mg tablet 15 mg PO BEDTIME Qty: 90 3RF valacyclovir 1 gram tablet See Rx Instructions .ROUTE .COMPLEX Qty: 20 0RF Dose Instruction: TAKE 1/2 TABLET BY MOUTH TWICE DAILY Rx Instructions: TAKE 1/2 TABLET BY MOUTH TWICE DAILY meclizine 25 mg tablet 25 mg PO BID PRN (Reason: dizziness) Qty: 60 2RF C-LIDOCAINE/ANTACID 1:1 See Rx Instructions .ROUTE .COMPLEX Qty: 200 3RF Dose Instruction: SWISH AND SPIT UPTO 4 TIMES A DAY NEEDED Rx Instructions: SWISH AND SPIT UPTO 4 TIMES A DAY NEEDED diphenoxylate-atropine 2.5-0.025 mg tablet See Rx Instructions .ROUTE .COMPLEX Qty: 90 0RF Dose Instruction: LIKE 1 TABLET BY MOUTH EVERY 6 TO 8 HOURS NEEDED FOR DIARRHEA Rx Instructions: LIKE 1 TABLET BY MOUTH EVERY 6 TO 8 HOURS NEEDED FOR DIARRHEA (DME) Disabled Parking Pass Qty: 1 0RF Dose Instruction: As directed Rx Instructions: As directed (DME) Stationary Oxygen Concentrator See Rx Instructions .Route .MEDSUPPLY Qty: 1 0RF Rx Instructions: Use to administer 2LPM continuous oxygen (DME) Nasal Canula and Tubing See Rx Instructions .Route .MEDSUPPLY Qty: 1 0RF Rx Instructions: Used to administer continuous oxygen. (DME) Oxygen Tank See Rx Instructions .Route .MEDSUPPLY Qty: 1 0RF Rx Instructions: Use to administer 2LPM continuous oxygen for transportation furosemide 20 mg tablet 20 mg PO BID Qty: 180 3RF oxybutynin chloride 15 mg tablet extended release 24hr 15 mg PO DAILY Qty: 90 1RF duloxetine 30 mg capsule,delayed release(DR/EC) 30 mg PO DAILY Qty: 90 3RF duloxetine 60 mg capsule,delayed release(DR/EC) 60 mg PO DAILY Qty: 90 3RF Referrals: Shanika Sutherland ARNP [Advanced Car Repairer Helper] -
[2024-12-03 11:20] LABS: Potassium 2.6 mmol/L (3.4-5.1)
[2024-12-03] MEDS: POTASSIUM CHLORIDE IN WATER 10 MEQ/100 ML PIGGYBACK 100 MEQ IV (11:32)
[2024-12-03] MEDS: cefTRIAXone 1,000 MG in SODIUM CHLORIDE 0.9% 100 ML 200 MG IV (12:24)
[2024-12-03] MEDS: BACITRACIN OINT 0.9 GM PCKT 1 APPLIC TOP (12:25)
--- NOTE | 2024-12-03 12:29 | PC.NURSE ---
Per MD Lugo; stop IV potassium
[2024-12-03] MEDS: POTASSIUM CHLORIDE 20 MEQ/15 ML UDC 40 MEQ PO (12:47)
--- NOTE | 2024-12-03 13:06 | PC.NURSE ---
Wound care performed. Forehead lac cleaned with hibiclense, bacitracin ointment applied and 4 steristreps placed on lac as per dr gill's verbal order. Pt tolerated well. Given snack of crackers and OJ. Pt A&Ox3.
[2024-12-03 13:24] LABS: Creatine Kinase 66 U/L (30-135)
[2024-12-03 13:40] LABS: Troponin I < 0.012 ng/mL (0.01-0.034)
--- NOTE | 2024-12-03 15:34 | PC.NURSE ---
RN returned to pt room to speak with regarding requested BONDED STRUCTURES REPAIRER consult. Pt and eloped from dept. Checked lobby and all waiting areas for pt and spouse. Pt called at home and no answer.
--- NOTE | 2024-12-03 15:47 | CM.SWNOTE ---
ED CONFIGURATION TECHNICIAN Note TRAFFIC ROUTING ENGINEER informs this CONFIGURATION TECHNICIAN that patient would like to speak with CONFIGURATION TECHNICIAN and he has been trying to coordinate this with PCP as well. Patient is 74 y/o female who presents to ED after GLF via EMS. Patient presented with laceration on head, it is reported that patient has hx of dementia. Patient and leave ED AMA and this CONFIGURATION TECHNICIAN is unable to meet with patient and spouse. CONFIGURATION TECHNICIAN calls patient's PCP office regarding their ED presentation, CONFIGURATION TECHNICIAN confirms that patient's PCP is Dr. Julisa Knox. CONFIGURATION TECHNICIAN informs PCP officer of patient's need for PCP f/u and of patient's presentation to the ED. It is reported that PCP will f/u with patient and spouse. Angelita Rice, FIRMWARE MANAGER
== END 2024-12-03 15:47 | disposition left against medical advice (07) ==
PROVIDERS: Emergency Provider Emergency Medicine; PCP Family Medicine
DX: S00.81XA Abrasion of other part of head, initial encounter (principal); N39.0 Urinary tract infection, site not specified; E87.6 Hypokalemia; W18.30XA Fall on same level, unspecified, initial encounter; R41.3 Other amnesia
CPT/HCPCS: 36415; 70450; 71045; 72125; 80053; 81001; 82550; 83690; 83735; 83880; 84484; 85025; 85610; 85730; 87077; 87086; 87186; 93005; 93010; 96365; 96367; 99284; J0696

== ENCOUNTER 2025-02-18 13:13 | Inpatient (IN) | payer MEDICARE, OTHER, SELFPAY ==
[2025-02-18] VITALS (18 sets, daily range): BP systolic 104–147; BP diastolic 43–105; PULSE 62–78; RESP 13–21; TEMP 36.1–36.8; O2SAT 92–100; BMI 24.3
--- NOTE | 2025-02-18 13:19 | ED.TRAUMA ---
HPI - Trauma General Chief Complaint: Trauma Stated Complaint: Weakness,fall,lying on floor up to 24 hours Source: patient and EMS Mode of arrival: EMS History of Present Illness HPI narrative: 74-year-old female history of HTN, depression, JACOBO, advanced dementia, brought in via EMS for unwitnessed syncopal episode and being on the ground for close to 24 hours brought in via EMS left unattended at home. Patient pleasantly confused unable to give me any further details at this this time due to being a poor historian. Information take from RN and EMS report at this time. Related Data Previous Rx's Medication Instructions Recorded adjuvant AS01B (PF)vial 1 of 2 0.5 ml IM ONCE #0.5 mL 11/16/18 (Shingrix Adjuvant Component (PF) intramuscular suspension) Disabled Parking Pass #1 ea 12/25/19 gabapentin 600 mg tablet 600 mg PO TID #270 tabs 03/11/21 Nasal Canula and Tubing #1 ea 06/29/21 Oxygen Tank #1 ea 06/29/21 Stationary Oxygen Concentrator #1 ea 06/29/21 furosemide 20 mg tablet 20 mg PO BID #180 tabs 06/29/21 nitroglycerin 0.4 mg sublingual 0.4 mg sublingual Q5-15M PRN chest 07/07/21 tablet pain #20 tabs duloxetine 30 mg capsule,delayed 30 mg PO DAILY #90 caps 08/11/21 release duloxetine 60 mg capsule,delayed 60 mg PO DAILY #90 caps 08/11/21 release oxybutynin chloride 15 mg 15 mg PO DAILY #90 tabs 08/11/21 tablet,extended release 24 hr cyclobenzaprine 10 mg tablet 10 mg PO BEDTIME #90 tabs 11/26/21 esomeprazole magnesium 40 mg 40 mg PO BID #180 caps 11/26/21 capsule,delayed release (Nexium) metoprolol tartrate 25 mg tablet 25 mg PO DAILY #90 tabs 11/26/21 mirtazapine 15 mg tablet 15 mg PO BEDTIME #90 tabs 11/26/21 valacyclovir 1 gram tablet See Rx Instructions .Route 02/03/22 .COMPLEX #20 tabs meclizine 25 mg tablet 25 mg PO BID PRN dizziness #60 tabs 02/17/22 C-LIDOCAINE/ANTACID 1:1 See Rx Instructions .Route 03/04/22 .COMPLEX #200 mL diphenoxylate-atropine 2.5 See Rx Instructions .Route 03/14/22 mg-0.025 mg tablet .COMPLEX #90 tabs Allergies Allergy/AdvReac Type Severity Reaction Status Date / Time diphenhydramine AdvReac Severe severe Verified 07/05/22 13:27 [DIPHENHYDRAMINE] anxiety. jittery, increase pulse Review of Systems Review of Systems ROS Unobtainable: Unobtainable due to mental status/LOC Patient History Medical History Incontinence Sleep apnea Myoclonic jerking Chronic low back pain with left-sided sciatica Labyrinthitis Herpes (Unknown) Chronic fatigue (Unknown) Fibromyalgia (Unknown) IBS (irritable bowel syndrome) (Unknown) Obstructive sleep apnea (Unknown) Anxiety (Unknown) Depression (Unknown) Hypertension (Unknown) Osteoporosis (Unknown) Nelson's esophagus (Unknown) GERD (gastroesophageal reflux disease) (Unknown) Surgical History Hx of hysterectomy (Unknown) History of hip surgery (Unknown) History of total right hip replacement (Unknown) History of total left hip replacement (Unknown) Status post delivery Status post tonsillectomy and adenoidectomy History of third molar tooth extraction Status post colonoscopy Family History Brother Congestive heart failure Father History of heart valve replacement Mother Diabetes mellitus Social History household members: spouse alcohol intake: current Exam Narrative Exam Narrative: GENERAL: [83] year old patient appears stated age. Smells of strong urine Well-developed patient, in mild distress. HEAD: Atraumatic. Normocephalic. EYES: Pupils equal round and reactive. Extraocular motions intact. No scleral icterus. No injection or drainage. ENT: Nose without bleeding, purulent drainage. Throat without erythema, tonsillar hypertrophy or exudate. Airway patent. NECK: Trachea midline. Non tender CARDIOVASCULAR: Regular rate and rhythm without murmurs, gallops, or rubs. RESPIRATORY: Clear to auscultation. Breath sounds equal bilaterally. No wheezes, rales, or rhonchi. GASTROINTESTINAL: Abdomen soft, non-tender, nondistended. EXTREMITIES: No edema or joint tenderness. BACK: Nontender without deformity or crepitance. No flank tenderness. NEURO: AOx1 SKIN: No rash or erythema of visible areas Initial Vital Signs Initial Vital Signs: Vital Signs Temperature 98.3 F 02/18/25 12:56 Pulse Rate 72 02/18/25 12:56 Respiratory Rate 18 02/18/25 12:56 Blood Pressure 118/80 02/18/25 12:56 Pulse Oximetry 98 02/18/25 12:56 Oxygen Delivery Method Room Air 02/18/25 12:56 Course Orders Ordered: ED Orders 02/18/25 13:22 CT Trauma Chest Abdomen Pelvis Stat CT head/brain wo con Stat EKG-12 Lead Stat 02/18/25 13:28 CT cervical spine wo con Stat 02/18/25 13:48 Complete Blood Count AUTO DIFF Stat Comprehensive Metabolic Panel Stat Ethanol (ETOH) Stat Lactate (Lactic Acid) Stat Lipase Stat Magnesium Stat PTT Partial Thromboplastin Marvin Stat Procalcitonin Stat Prothrombin Time INR Stat Troponin & CK Cardiac Panel Stat Type and Screen Stat 02/18/25 14:02 Consult to [facility] - Big Data Admin Stat 02/18/25 14:31 Blood Culture Stat 02/18/25 16:06 Troponin I Stat Troponin I Stat 02/18/25 16:31 Urine Drug Screen, Rapid Stat Urine Microscopic Stat POTASSIUM CHLORIDE IN WATER (Potassium Cl 10 Meq/100 Ml Kaila) 10 meq in 100 mls @ 100 mls/hr IV Q1H IZA Stop: 02/18/25 18:29 Last Admin: 02/18/25 17:20 Dose: 100 mls/hr Documented By: Infusion: 02/18/25 17:14 Dose: Infused Documented By: Infusion: 02/18/25 16:08 Dose: 100 mls/hr Documented By: Infusion: 02/18/25 14:58 Dose: 0 mls/hr Documented By: Admin: 02/18/25 14:42 Dose: 100 mls/hr Documented By: DRE Discontinued Medications Diphtheria/Tetanus/Acell Pertussis (Tet,Diph,Pertuss(Acell),Vac/Pf 0.5 Ml Syringe) 0.5 ml IM .ONCE ONE Stop: 02/18/25 13:23 Last Admin: 02/18/25 15:17 Dose: 0.5 ml Documented By: DRE Sodium Chloride (Normal Saline 0.9%) 1,000 mls @ 1,000 mls/hr IV BOLUS ONE Stop: 02/18/25 14:21 Last Infusion: 02/18/25 16:33 Dose: Infused Documented By: Admin: 02/18/25 13:47 Dose: 1,000 mls/hr Documented By: DRE Lactated Ringer's (Lactated Ringers) 500 mls @ 1,000 mls/hr IV BOLUS ONE Stop: 02/18/25 13:53 Last Infusion: 02/18/25 17:20 Dose: Infused Documented By: Admin: 02/18/25 16:42 Dose: 1,000 mls/hr Documented By: DRE Vital Signs Vital signs: Vital Signs - 8 hr 02/18/25 12:56 02/18/25 13:04 02/18/25 13:06 Temperature 98.3 F Pulse Rate 72 71 Respiratory Rate 18 13 Blood Pressure 118/80 104/77 Pulse Oximetry 98 Oxygen Delivery Method Room Air 02/18/25 13:06 02/18/25 13:30 02/18/25 14:03 Temperature Pulse Rate 68 63 63 Respiratory Rate 13 16 Blood Pressure Pulse Oximetry 99 98 Oxygen Delivery Method 02/18/25 14:05 02/18/25 14:05 02/18/25 14:30 Temperature Pulse Rate 63 69 Respiratory Rate Blood Pressure 113/60 Pulse Oximetry 98 94 Oxygen Delivery Method 02/18/25 14:41 02/18/25 14:41 02/18/25 15:00 Temperature Pulse Rate 71 69 Respiratory Rate 18 16 Blood Pressure 141/79 H Pulse Oximetry 92 97 Oxygen Delivery Method 02/18/25 15:01 02/18/25 15:01 02/18/25 15:30 Temperature Pulse Rate 70 62 Respiratory Rate 17 14 Blood Pressure 147/105 H Pulse Oximetry 97 97 Oxygen Delivery Method 02/18/25 16:00 02/18/25 16:30 02/18/25 16:41 Temperature Pulse Rate 65 69 Respiratory Rate 16 13 Blood Pressure 127/74 Pulse Oximetry 98 96 Oxygen Delivery Method 02/18/25 16:41 02/18/25 17:00 02/18/25 17:00 Temperature Pulse Rate 65 66 Respiratory Rate 19 Blood Pressure 115/66 Pulse Oximetry 96 97 Oxygen Delivery Method 02/18/25 17:30 02/18/25 17:30 Temperature Pulse Rate 65 Respiratory Rate 21 Blood Pressure 109/70 Pulse Oximetry 99 Oxygen Delivery Method MDM - Trauma Lab Data 02/18/25 13:48 02/18/25 13:48 Labs: Lab Results 02/18/25 02/18/25 02/18/25 Range/Units 13:48 16:06 16:31 WBC 9.5 (4.5-11.0) X10^3/uL RBC 4.59 (4.0-5.2) X10^6/uL Hgb 14.7 (12.0-16.0) g/dL Hct 39.9 (36-46) % MCV 86.9 (80-100) fL MCH 32.1 (26-34) PG MCHC 36.9 H (30-36) % RDW 13.7 (11.6-14.8) % Plt Count 226 (150-400) X10^3/uL Neut % (Auto) 74.1 (50-75) % Lymph % (Auto) 17.0 L (25-40) % [place] % (Auto) 7.9 (3-14) % Eos % (Auto) 0.5 L (2-4) % Baso % (Auto) 0.5 (0-2) % Neut # (Auto) 7000 (9813-3240) /uL Lymph # (Auto) 1600 (4041-7144) /uL [place]itus # (Auto) 800 (0-900) /uL Eos # (Auto) 0 (0-450) /uL Baso # (Auto) 0 (0-100) /uL PT 12.4 (9.4-12.5) SECONDS INR 1.1 (0.9-1.3) APTT 21 L (25.1-36.5) SECONDS Sodium 134 L (137-145) mmol/L Potassium 2.2 L* (3.4-5.1) mmol/L Chloride 84 L (98-107) mmol/L Carbon Dioxide 37 H (22-32) mmol/L BUN 23 H (7-17) mg/dL Creatinine 0.70 (0.52-1.04) mg/dL Estimated GFR > 60 (>60) mL/min BUN/Creatinine Ratio 32.9 H (6-22) Glucose 100 H (70-99) mg/dL Lactate 2.2 H 1.6 (0.7-2.1) mmol/L Calcium 9.5 (8.4-10.2) mg/dL Magnesium 1.7 (1.6-2.3) mg/dL Total Bilirubin 3.5 H (0.2-1.3) mg/dL AST 77 H (14-36) IU/L ALT 56 H (<35) IU/L Alkaline Phosphatase 87 (38-126) U/L Total Creatine Kinase 61 (30-135) U/L Troponin I 0.022 0.023 (0.01-0.034) ng/mL Total Protein 7.7 (6.3-8.2) g/dL Albumin 4.6 (3.5-5.0) g/dL Globulin 3.1 (1.7-4.1) g/dL Albumin/Globulin Ratio 1.5 (1.0-2.8) Lipase 19 L (23-300) U/L Procalcitonin 0.089 (<0.5) ng/mL Urine RBC 0-1/hpf (0-5/HPF) Urine WBC 1-5/hpf (0-5/HPF) Ur Squamous Epith Cells 0-1 /hpf (0-5/HPF) Urine Bacteria Many (>30) H (None) Ur Culture Indicated? Cult not indicated Vol Urine Centrifuged Low vol <1ml unspun A U Opiates 300ng/mL cut Negative (Negative) Ur Oxycodone Screen Positive H (Negative) Urine Methadone Screen Negative (Negative) Ur Barbiturates Screen Negative (Negative) U Tricyclic Antidepress Negative (Negative) Ur Phencyclidine Scrn Negative (Negative) Ur Amphetamines Screen Negative (Negative) U Methamphetamines Scrn Negative (Negative) Ur MDMA Scrn (Ecstasy) Negative (Negative) U Benzodiazepines Scrn Negative (Negative) Urine Cocaine Screen Negative (Negative) U Marijuana (THC) Screen Negative (Negative) Urine pH Normal (Normal) Urine Specific [place] Normal (Normal) Ethyl Alcohol < 10 ( - 10) mg/dL Ur Creatinine Normal (Normal) Blood Type A Positive Antibody Screen Negative Point of Care Testing Glucose POC [address] scan - head: Radiologist's Impression: Patient: Stephanie Lucas MR#: [id number] : 1950 Acct:[id number] Age/Sex: 74 / F Date of Service: 02/18/25 Loc: ED Accession Number: [id number] Procedure: CT head/brain wo con Ordering Provider: Zackery Belcher D.O. PROCEDURE: CT HEAD/BRAIN WO CON INDICATIONS: Trauma TECHNIQUE: Noncontrast 4.5 mm thick angled axial sections acquired from the foramen magnum to the vertex, with coronal and sagittal reformats. For radiation dose reduction, the following was used: automated exposure control, adjustment of mA and/or kV according to patient size. COMPARISON: [facility], CT, CT HEAD/BRAIN WO CON, 12/03/2024, 9:42. FINDINGS: Image quality: Diagnostic. CSF spaces: Basal cisterns are patent. No extra-axial fluid collections. The ventricles are symmetric in size and shape. Brain: No intracranial bleeds or mass effect. There is cerebral volume loss, with resultant ventricular and sulcal prominence. There are periventricular and deep white matter chronic small vessel ischemic changes. There is intracranial internal carotid artery atherosclerosis. Skull and face: Calvarium and visualized facial bones appear intact, without suspicious lesions. Sinuses: Visualized sinuses and mastoids are clear. IMPRESSION: No acute intracranial pathology. Dictated by: Roddy Coburn M.D. on 02/18/2025 at 14:09 Approved by: Roddy Coburn M.D. on 02/18/2025 at 14:10 [place] [address] CT Scan Report Signed Patient: Stephanie Lucas MR#: [id number] : 1950 Acct:[id number] Age/Sex: 74 / F Date of Service: 02/18/25 Loc: ED Accession Number: [id number] Procedure: CT cervical spine wo con Ordering Provider: Zackery Belcher D.O. PROCEDURE: CT CERVICAL SPINE WO CON INDICATIONS: fall, down for 24hrs TECHNIQUE: Noncontrast 3 mm thick sections acquired from the skull base to the T4 level. Sagittal and coronal reformats were then constructed. For radiation dose reduction, the following was used: automated exposure control, adjustment of mA and/or kV according to patient size. COMPARISON: [facility], CT, CT CERVICAL SPINE WO CON, 12/03/2024, 9:42. FINDINGS: Image quality: Excellent. Bones: No acute cervical fractures or dislocations. A mild superior endplate compression of T3 is stable. There is cervical spondylosis present centered at C5-C6 and C6-C7 with disc height loss and uncovertebral joint hypertrophy and posterior disc osteophyte formation. There is bilateral bony foraminal narrowing at these levels. There is peripherally calcified posterior disc protrusion at C6-C7 resulting in a degree of canal stenosis. Visualized superior ribs are intact. Soft tissues: Prevertebral soft tissues are normal in thickness. No paravertebral hematomas. No apical pneumothoraces. IMPRESSION: 1. No displaced cervical fracture or traumatic subluxation. 2. Stable mild T3 compression. 3. Cervical spondylosis as described above. Dictated by: Kwame Latif M.D. on 02/18/2025 at 14:09 Approved by: Kwame Latif M.D. on 02/18/2025 at 14:13 [place] [address] CT Scan Report Signed Patient: Stephanie Lucas MR#: [id number] : 1950 Acct:[id number] Age/Sex: 74 / F Date of Service: 02/18/25 Loc: ED Accession Number: [id number] Procedure: CT Trauma Chest Abdomen Pelvis Ordering Provider: Zackery Belcher D.O. PROCEDURE: CT TRAUMA CHEST ABDOMEN PELVIS INDICATIONS: fell, down for 24 hours TECHNIQUE: After the administration of intravenous contrast, 5 mm thick sections acquired from the lung apices to the symphysis. 2.5 mm thick coronal and sagittal reformats were acquired. Additional 7 mm thick coronal maximum intensity projection (MIP) reformats acquired through the lungs. Optional 10-minute delayed imaging may be performed from the kidneys to the bladder. For radiation dose reduction, the following was used: automated exposure control, adjustment of mA and/or kV according to patient size. COMPARISON: None. FINDINGS: Image quality: Diagnostic. CHEST: Lower Neck: No enlarged lymph nodes. Thyroid: No thyroid nodules which require sonographic evaluation. Axillae: No enlarged lymph nodes. Chest Wall: No subcutaneous gas. Lungs and Pleura: No pulmonary contusions or lacerations. No acute airspace opacities. No pneumothorax or hemothorax. Mediastinum: No mediastinal hematomas. Heart size is normal. No pericardial effusion. Thoracic aorta and pulmonary arteries demonstrate normal size and enhancement. No mediastinal or hilar adenopathy. Esophagus is normal in caliber. No hiatal hernia. ABDOMEN: Liver: No lacerations. Gallbladder: No radiopaque gallstones or wall thickening. Biliary ducts: No biliary dilation. Pancreas: Homogenous enhancement. Spleen: Homogenous enhancement without laceration or hematoma. Adrenal Glands: Symmetric enhancement. Kidneys and Ureters: Symmetric enhancement. No hydronephrosis. No solid mass. No complex renal cystic lesion which requires follow up. Stomach and Bowel: Normal colonic caliber, without significant wall thickening. Peritoneum: No abnormal intraperitoneal fluid. No free air. Ventral Wall: No hernia. Abdominal Nodes: No retroperitoneal or mesenteric adenopathy by size criteria. Vessels: Aorta and inferior vena cava are normal in size. PELVIS: Pelvic Organs: Unremarkable. Bladder: Normal thickness. Pelvic Nodes: No enlarged lymph nodes. Miscellaneous: No inguinal hernias are seen. Bones: Pelvic ring and hip joints appear intact. No displaced rib fractures. No acute compression fractures. Diffuse osteopenia. Old L1 inferior endplate compression. Old T5 compression. Old L3 compression. Note is made of a prominent hemangioma of the T8 vertebral body. Bilateral total hip arthroplasties. IMPRESSION: 1. No significant sequelae of acute trauma noted in the chest, abdomen, and pelvis. 2. No acute process noted in the chest, abdomen, and pelvis. 3. Old compression fractures. ECG Data Interpretation: NSR HR 65 WI 136 QRS [address]-t wave change Unchanged from 12/03/24 [facility] Narrative Medical decision making narrative: All lab work EKG vital signs nurse triage note medication list previous visits including all imaging studies reviewed. Patient given lactated ringer and IV Krider here in the ER. Differential diagnosis includes sepsis UTI pneumonia dehydration rhabdomyolysis subarachnoid hemorrhage subdural hemorrhage CVA pneumothorax. Case discussed with Dr. Knox which is her own family medicine doctor and knows her past medical and past surgical history that she has advanced dementia at this time and did not even recognize the PCP 3 weeks ago on her office visit. has accepted patient for inpatient admission and 1 of her colleagues will be rounding on the patient in the hospital. Discharge Plan Departure Patient Disposition: Admitted As Inpatient Clinical Impression: Acute hypokalemia Advanced dementia Qualifiers: Dementia type: unspecified type Dementia behavioral or psychological symptom: unspecified whether behavioral, psychotic, or mood disturbance or anxiety Qualified Code(s): F03.C0 - Unspecified dementia, severe, without behavioral disturbance, psychotic disturbance, mood disturbance, and anxiety Admit Date/Time: 02/18/25 18:27 Admit Provider: Althea Vallecillo
--- NOTE | 2025-02-18 13:22 | EKG_ITS ---
[address] [address] Test Date: 2025-02-18 Pat Name: Stephanie Lucas Department: Room: Gender: Female Service Cleaner: WILLOW : 1950 Requested By: Order Number: [id number] Reading MD: Mookie Gutiérrez Measurements Intervals [place] Rate: 65 P: 7 ID: [id number] QRS: 2 QRSD: 92 T: -39 QT: 456 QTc: 474 Interpretive Statements Normal sinus rhythm Left ventricular hypertrophy with repolarization abnormality ( [place] product ) Electronically Signed On 02-19-2025 17:39:47 PDT by Mookie Gutiérrez
--- NOTE | 2025-02-18 13:22 | DI.CT.S_ITS ---
PROCEDURE: CT TRAUMA CHEST ABDOMEN PELVIS INDICATIONS: fell, down for 24 hours TECHNIQUE: After the administration of intravenous contrast, 5 mm thick sections acquired from the lung apices to the symphysis. 2.5 mm thick coronal and sagittal reformats were acquired. Additional 7 mm thick coronal maximum intensity projection (MIP) reformats acquired through the lungs. Optional 10-minute delayed imaging may be performed from the kidneys to the bladder. For radiation dose reduction, the following was used: automated exposure control, adjustment of mA and/or kV according to patient size. COMPARISON: None. FINDINGS: Image quality: Diagnostic. CHEST: Lower Neck: No enlarged lymph nodes. Thyroid: No thyroid nodules which require sonographic evaluation. Axillae: No enlarged lymph nodes. Chest Wall: No subcutaneous gas. Lungs and Pleura: No pulmonary contusions or lacerations. No acute airspace opacities. No pneumothorax or hemothorax. Mediastinum: No mediastinal hematomas. Heart size is normal. No pericardial effusion. Thoracic aorta and pulmonary arteries demonstrate normal size and enhancement. No mediastinal or hilar adenopathy. Esophagus is normal in caliber. No hiatal hernia. ABDOMEN: Liver: No lacerations. Gallbladder: No radiopaque gallstones or wall thickening. Biliary ducts: No biliary dilation. Pancreas: Homogenous enhancement. Spleen: Homogenous enhancement without laceration or hematoma. Adrenal Glands: Symmetric enhancement. Kidneys and Ureters: Symmetric enhancement. No hydronephrosis. No solid mass. No complex renal cystic lesion which requires follow up. Stomach and Bowel: Normal colonic caliber, without significant wall thickening. Peritoneum: No abnormal intraperitoneal fluid. No free air. Ventral Wall: No hernia. Abdominal Nodes: No retroperitoneal or mesenteric adenopathy by size criteria. Vessels: Aorta and inferior vena cava are normal in size. PELVIS: Pelvic Organs: Unremarkable. Bladder: Normal thickness. Pelvic Nodes: No enlarged lymph nodes. Miscellaneous: No inguinal hernias are seen. Bones: Pelvic ring and hip joints appear intact. No displaced rib fractures. No acute compression fractures. Diffuse osteopenia. Old L1 inferior endplate compression. Old T5 compression. Old L3 compression. Note is made of a prominent hemangioma of the T8 vertebral body. Bilateral total hip arthroplasties. IMPRESSION: 1. No significant sequelae of acute trauma noted in the chest, abdomen, and pelvis. 2. No acute process noted in the chest, abdomen, and pelvis. 3. Old compression fractures. Dictated by: Kwame Latif M.D. on 02/18/2025 at 14:24 Approved by: Kwame Latif M.D. on 02/18/2025 at 14:30
--- NOTE | 2025-02-18 13:22 | DI.CT.S_ITS ---
PROCEDURE: CT HEAD/BRAIN WO CON INDICATIONS: Trauma TECHNIQUE: Noncontrast 4.5 mm thick angled axial sections acquired from the foramen magnum to the vertex, with coronal and sagittal reformats. For radiation dose reduction, the following was used: automated exposure control, adjustment of mA and/or kV according to patient size. COMPARISON: [facility], CT, CT HEAD/BRAIN WO CON, 12/03/2024, 9:42. FINDINGS: Image quality: Diagnostic. CSF spaces: Basal cisterns are patent. No extra-axial fluid collections. The ventricles are symmetric in size and shape. Brain: No intracranial bleeds or mass effect. There is cerebral volume loss, with resultant ventricular and sulcal prominence. There are periventricular and deep white matter chronic small vessel ischemic changes. There is intracranial internal carotid artery atherosclerosis. Skull and face: Calvarium and visualized facial bones appear intact, without suspicious lesions. Sinuses: Visualized sinuses and mastoids are clear. IMPRESSION: No acute intracranial pathology. Dictated by: Roddy Coburn M.D. on 02/18/2025 at 14:09 Approved by: Roddy Coburn M.D. on 02/18/2025 at 14:10
--- NOTE | 2025-02-18 13:28 | DI.CT.S_ITS ---
PROCEDURE: CT CERVICAL SPINE WO CON INDICATIONS: fall, down for 24hrs TECHNIQUE: Noncontrast 3 mm thick sections acquired from the skull base to the T4 level. Sagittal and coronal reformats were then constructed. For radiation dose reduction, the following was used: automated exposure control, adjustment of mA and/or kV according to patient size. COMPARISON: [facility], CT, CT CERVICAL SPINE WO CON, 12/03/2024, 9:42. FINDINGS: Image quality: Excellent. Bones: No acute cervical fractures or dislocations. A mild superior endplate compression of T3 is stable. There is cervical spondylosis present centered at C5-C6 and C6-C7 with disc height loss and uncovertebral joint hypertrophy and posterior disc osteophyte formation. There is bilateral bony foraminal narrowing at these levels. There is peripherally calcified posterior disc protrusion at C6-C7 resulting in a degree of canal stenosis. Visualized superior ribs are intact. Soft tissues: Prevertebral soft tissues are normal in thickness. No paravertebral hematomas. No apical pneumothoraces. IMPRESSION: 1. No displaced cervical fracture or traumatic subluxation. 2. Stable mild T3 compression. 3. Cervical spondylosis as described above. Dictated by: Kwame Latif M.D. on 02/18/2025 at 14:09 Approved by: Kwame Latif M.D. on 02/18/2025 at 14:13
[2025-02-18] MEDS: SODIUM CHLORIDE 0.9% 1,000 ML 1000 ML IV (13:47)
[2025-02-18 14:03] LABS: Add Manual Diff / Slide Review NO; Basophils Absolute Auto 0 /uL (0-100); Basophils Percent Auto 0.5 % (0-2); Eosinophils Absolute Auto 0 /uL (0-450); Eosinophils Percent Auto 0.5 % (2-4); Hematocrit 39.9 % (36-46); Hemoglobin 14.7 g/dL (12.0-16.0); Lymphocytes Absolute Auto 1600 /uL (1100-4500); Mean Corpuscular HGB Conc 36.9 % (30-36); Mean Corpuscular Hemoglobin 32.1 PG (26-34); Mean Corpuscular Volume 86.9 fL (80-100); Monocytes Absolute Auto 800 /uL (0-900); Monocytes Percent Auto 7.9 % (3-14); Neutrophils Absolute Auto 7000 /uL (1500-7000); Neutrophils Percent Auto 74.1 % (50-75); Platelet Count 226 X10^3/uL (150-400); Red Blood Cell Count 4.59 X10^6/uL (4.0-5.2); Red Cell Distribution Width 13.7 % (11.6-14.8); White Blood Cell Count 9.5 X10^3/uL (4.5-11.0)
[2025-02-18 14:17] LABS: INR 1.1 (0.9-1.3); Prothrombin Time 12.4 SECONDS (9.4-12.5)
[2025-02-18 14:20] LABS: PTT Partial Thromboplastin Tim 21 SECONDS (25.1-36.5)
[2025-02-18 14:24] LABS: Alanine Aminotransferase 56 IU/L (<35); Albumin 4.6 g/dL (3.5-5.0); Albumin Globulin Ratio 1.5 (1.0-2.8); Alkaline Phosphatase 87 U/L (38-126); Aspartate Aminotransferase 77 IU/L (14-36); BUN Creatinine Ratio 32.9 (6-22); Bilirubin Total 3.5 mg/dL (0.2-1.3); Blood Urea Nitrogen 23 mg/dL (7-17); Calcium 9.5 mg/dL (8.4-10.2); Carbon Dioxide 37 mmol/L (22-32); Chloride 84 mmol/L (98-107); Creatine Kinase 61 U/L (30-135); Estimated Glomerular Filt Rate > 60 mL/min (>60); Ethanol (ETOH) < 10 mg/dL; Globulin 3.1 g/dL (1.7-4.1); Glucose 100 mg/dL (70-99); Lactate (Lactic Acid) 2.2 mmol/L (0.7-2.1); Lipase 19 U/L (23-300); Sodium 134 mmol/L (137-145); Total Protein 7.7 g/dL (6.3-8.2)
[2025-02-18 14:26] LABS: HEMOLYSIS 53 (0-50)
[2025-02-18 14:27] LABS: Potassium 2.2 mmol/L (3.4-5.1)
[2025-02-18 14:34] LABS: Troponin I 0.022 ng/mL (0.01-0.034)
[2025-02-18 14:39] LABS: Procalcitonin 0.089 ng/mL (<0.5)
[2025-02-18] MEDS: POTASSIUM CHLORIDE IN WATER 10 MEQ/100 ML PIGGYBACK 100 MEQ IV ×4 (14:42→19:22)
--- NOTE | 2025-02-18 14:59 | PC.NURSE ---
Patients left ac IV infiltrated while running potassium chloride, Chitra RN and this RN stopped the pump and removed the IV. Patients left upper arm is reddened and tender, Dr Belcher aware.
[2025-02-18 15:04] LABS: Magnesium 1.7 mg/dL (1.6-2.3)
[2025-02-18] MEDS: TET,DIPH,PERTUSS(ACELL),VAC/PF 0.5 ML SYRINGE IM (15:17)
[2025-02-18 15:31] LABS: Reflexed Lactate in 2 Hours Y
[2025-02-18 16:28] LABS: Lactate 2HR (Lactic Acid Rflx) 1.6 mmol/L (0.7-2.1)
[2025-02-18] MEDS: LACTATED RINGERS 500 ML 1000 ML IV (16:42)
[2025-02-18 16:44] LABS: Bacteria Urine Many (>30); RBC Urine 0-1/HPF (0-5/HPF); Squamous Epithelial Cell Urine 0-1 /HPF (0-5/HPF); Urine Volume Low Vol <1mL unspun; WBC Urine 1-5/HPF (0-5/HPF)
[2025-02-18 16:46] LABS: Culture Indicated Urine Cult Not Indicated; Ur Creatinine Normal (Normal); Ur Specific Gravity Normal (Normal); Urine Amphetamines Negative (Negative); Urine Cocaine Negative (Negative); Urine Opiates Negative (Negative); Urine Phencyclidine Negative (Negative); Urine THC Negative (Negative); Urine pH Normal (Normal)
[2025-02-18 16:47] LABS: Urine Barbiturates Negative (Negative); Urine Benzodiazepines Negative (Negative); Urine MDMA Negative (Negative); Urine Methadone Negative (Negative); Urine Oxycodone Positive (Negative); Urine Tricyclic Antidepressant Negative (Negative)
[2025-02-18 17:30] LABS: Troponin I 0.023 ng/mL (0.01-0.034)
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
--- NOTE | 2025-02-18 20:17 | PC.NURSE ---
wrapper and preserver patient alert to self only, patient unable to maintain a linear conversation. RN unable to do medication list. Call light placed within reach and bed alarm set. VS WNL. Patient denied any pain or N/V.
--- NOTE | 2025-02-18 20:30 | PC.NURSE ---
Patient's admission abasement was very limited with information as patient is unable to recall answers to any of the questions. Patient is alert to self only.
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
[2025-02-18] MEDS: ACETAMINOPHEN 325 MG TABLET 650 MG PO (22:06)
[2025-02-18] MEDS: CYCLOBENZAPRINE 10 MG TABLET PO (22:07)
[2025-02-18] MEDS: IBUPROFEN 400 MG TABLET PO (22:07)
[2025-02-19] VITALS: BP 128/91; PULSE 60; RESP 17; TEMP 36.1; O2SAT 95
[2025-02-19 04:00] VITALS: BP 138/83; PULSE 76; RESP 18; TEMP 35.6; O2SAT 98
[2025-02-19 05:02] LABS: Alanine Aminotransferase 47 IU/L (<35); Albumin 3.9 g/dL (3.5-5.0); Albumin Globulin Ratio 1.4 (1.0-2.8); Alkaline Phosphatase 83 U/L (38-126); Aspartate Aminotransferase 59 IU/L (14-36); BUN Creatinine Ratio 32.8 (6-22); Bilirubin Total 2.9 mg/dL (0.2-1.3); Blood Urea Nitrogen 19 mg/dL (7-17); Carbon Dioxide 35 mmol/L (22-32); Chloride 91 mmol/L (98-107); Estimated Glomerular Filt Rate > 60 mL/min (>60); Globulin 2.8 g/dL (1.7-4.1); Glucose 81 mg/dL (70-99); HEMOLYSIS 17 (0-50); Sodium 138 mmol/L (137-145); Total Protein 6.7 g/dL (6.3-8.2)
[2025-02-19 05:07] LABS: Potassium 2.3 mmol/L (3.4-5.1)
[2025-02-19 05:18] LABS: Add Manual Diff / Slide Review SLIDE REVIEW; Basophils Absolute Auto 0 /uL (0-100); Basophils Percent Auto 0.3 % (0-2); Eosinophils Absolute Auto 200 /uL (0-450); Eosinophils Percent Auto 1.8 % (2-4); Hematocrit 39.7 % (36-46); Hemoglobin 14.6 g/dL (12.0-16.0); Lymphocytes Absolute Auto 3000 /uL (1100-4500); Lymphocytes Percent Auto 30.3 % (25-40); Mean Corpuscular HGB Conc 36.7 % (30-36); Mean Corpuscular Volume 87.1 fL (80-100); Monocytes Absolute Auto 800 /uL (0-900); Monocytes Percent Auto 8.4 % (3-14); Neutrophils Absolute Auto 6000 /uL (1500-7000); Neutrophils Percent Auto 59.2 % (50-75); Platelet Count 141 X10^3/uL (150-400); Red Blood Cell Count 4.56 X10^6/uL (4.0-5.2); Red Cell Distribution Width 14.1 % (11.6-14.8); White Blood Cell Count 10.1 X10^3/uL (4.5-11.0)
[2025-02-19] MEDS: POTASSIUM CHLORIDE IN WATER 10 MEQ/100 ML PIGGYBACK 100 MEQ IV ×6 (05:33→11:23)
[2025-02-19] MEDS: ACETAMINOPHEN 325 MG TABLET 650 MG PO ×2 (06:26→21:12)
[2025-02-19] MEDS: IBUPROFEN 400 MG TABLET PO ×2 (06:26→21:11)
[2025-02-19 06:52] LABS: Rouleaux 1+
[2025-02-19 07:41] VITALS: BP 121/81; PULSE 74; RESP 16; TEMP 36.5; O2SAT 94
--- NOTE | 2025-02-19 09:12 | P.HP_ITS ---
History of Present Illness History of Present Illness Date Patient Seen: 02/19/25 Time Patient Seen: 09:12 Chief complaint: Weakness,fall,lying on floor up to 24 hours Narrative: This is a very pleasant 74-year-old female who is followed by Dr. Knox as her PCP. Patient has severe dementia and was at home with her when she sustained a syncopal episode. She was brought to the ER for evaluation was found to have severe hypokalemia and admitted for the same. She had CT scan of her head neck chest abdomen and pelvis which did not really reveal any acute abnormality but a stable old T3 compression fracture. The patient has received replacement with K riders and no improvement in her potassium more K riders are currently going in right now. Patient is unable to give history given her dementia in his alert to person only. Patient had unremarkable night. Patient is unable to answer questions but awakens to touch and holds my hand. Past medical history: 1. Previous history of hypokalemia related to diarrhea 2. Dementia 3. Obstructive sleep apnea 4. Hypertension 5. Nelson's esophagitis 6. Osteoporosis 7. GERD 8. Depression 9. Anxiety 10. Fibromyalgia 11. Irritable bowel syndrome 12. Chronic fatigue Past surgical history 1. Total hip replacement on the right 2. Total hip replacement on the left 3. section 4. Tonsillectomy and adenoidectomy Family history: Brother From CHF Mother from complications of diabetes Father from suicide Health related behavior: Patient does not use tobacco products, alcohol And is fairly inactive Social history: Patient lives with in their own home in [place] and they are looking for possible placement 12 point review of systems otherwise negative than [facility] Medical History Incontinence Sleep apnea Myoclonic jerking Chronic low back pain with left-sided sciatica Labyrinthitis Herpes (Unknown) Chronic fatigue (Unknown) Fibromyalgia (Unknown) IBS (irritable bowel syndrome) (Unknown) Obstructive sleep apnea (Unknown) Anxiety (Unknown) Depression (Unknown) Hypertension (Unknown) Osteoporosis (Unknown) Nelson's esophagus (Unknown) GERD (gastroesophageal reflux disease) (Unknown) Surgical History Hx of hysterectomy (Unknown) History of hip surgery (Unknown) History of total right hip replacement (Unknown) History of total left hip replacement (Unknown) Status post delivery Status post tonsillectomy and adenoidectomy History of third molar tooth extraction Status post colonoscopy Family History Brother Congestive heart failure Father History of heart valve replacement Mother Diabetes mellitus Social History household members: spouse alcohol intake: current Meds Home Medications and Allergies Home Medications Medication Instructions Recorded Confirmed Type adjuvant AS01B (PF)vial 1 of 2 0.5 ml IM ONCE #0.5 mL 11/16/18 07/05/22 Rx (Shingrix Adjuvant Component (PF) intramuscular suspension) Disabled Parking Pass #1 ea 12/25/19 07/05/22 Rx gabapentin 600 mg tablet 600 mg PO TID #270 tabs 03/11/21 07/05/22 Rx Nasal Canula and Tubing #1 ea 06/29/21 07/05/22 Rx Oxygen Tank #1 ea 06/29/21 07/05/22 Rx Stationary Oxygen Concentrator #1 ea 06/29/21 07/05/22 Rx furosemide 20 mg tablet 20 mg PO BID #180 tabs 06/29/21 07/05/22 Rx nitroglycerin 0.4 mg sublingual 0.4 mg sublingual Q5-15M PRN chest 07/07/21 07/05/22 Rx tablet pain #20 tabs duloxetine 30 mg capsule,delayed 30 mg PO DAILY #90 caps 08/11/21 07/05/22 Rx release duloxetine 60 mg capsule,delayed 60 mg PO DAILY #90 caps 08/11/21 07/05/22 Rx release oxybutynin chloride 15 mg 15 mg PO DAILY #90 tabs 08/11/21 07/05/22 Rx tablet,extended release 24 hr cyclobenzaprine 10 mg tablet 10 mg PO BEDTIME #90 tabs 11/26/21 07/05/22 Rx esomeprazole magnesium 40 mg 40 mg PO BID #180 caps 11/26/21 07/05/22 Rx capsule,delayed release (Nexium) metoprolol tartrate 25 mg tablet 25 mg PO DAILY #90 tabs 11/26/21 07/05/22 Rx mirtazapine 15 mg tablet 15 mg PO BEDTIME #90 tabs 11/26/21 07/05/22 Rx valacyclovir 1 gram tablet See Rx Instructions .Route 02/03/22 07/05/22 Rx .COMPLEX #20 tabs meclizine 25 mg tablet 25 mg PO BID PRN dizziness #60 tabs 02/17/22 07/05/22 Rx C-LIDOCAINE/ANTACID 1:1 See Rx Instructions .Route 03/04/22 07/05/22 Rx .COMPLEX #200 mL diphenoxylate-atropine 2.5 See Rx Instructions .Route 03/14/22 07/05/22 Rx mg-0.025 mg tablet .COMPLEX #90 tabs Allergies Allergy/AdvReac Type Severity Reaction Status Date / Time diphenhydramine AdvReac Severe severe Verified 07/05/22 13:27 [DIPHENHYDRAMINE] anxiety. jittery, increase pulse Review of Systems Review of Systems Narrative: Negative for any fever, cough, difficulty breathing, urine or stool symptoms Exam Vital Signs (past 8 hours): - 02/19/25 04:00 02/19/25 07:41 02/19/25 07:46 Temperature 96.0 F L 97.7 F Pulse Rate 76 74 Respiratory Rate 18 16 Blood Pressure 138/83 121/81 Pulse Oximetry 98 94 Oxygen Delivery Method Room Air Oxygen Flow Rate 0 Oxygen Delivery Method Room Air Oxygen Flow Rate 0 Narrative Exam Narrative: Afebrile vital signs are stable Patient awakens to touch but is unable to answer questions HEENT: Mucous membranes moist and pink Neck: Supple without adenopathy Chest: Clear to auscultation without wheezes rhonchi or crackles Cor: 4 over 6 systolic murmur heard loudest at the right upper sternal border Abdomen positive bowel sounds, soft, nontender, nondistended, no hepatosplenomegaly Extremities: No edema, pulses intact Neurologic exam is nonfocal other than patient is unable to answer questions. Patient moves all extremities well. Objective Labs 02/19/25 04:35 02/19/25 04:35 Labs: Laboratory Results - last 24 hr 02/18/25 02/18/25 02/18/25 13:48 16:06 16:31 WBC 9.5 RBC 4.59 Hgb 14.7 Hct 39.9 MCV 86.9 MCH 32.1 MCHC 36.9 H RDW 13.7 Plt Count 226 Neut % (Auto) 74.1 Lymph % (Auto) 17.0 L Stephens % (Auto) 7.9 Eos % (Auto) 0.5 L Baso % (Auto) 0.5 Neut # (Auto) 7000 Lymph # (Auto) 1600 Stephens # (Auto) 800 Eos # (Auto) 0 Baso # (Auto) 0 RBC Morphology Rouleaux PT 12.4 INR 1.1 APTT 21 L Sodium 134 L Potassium 2.2 L* Chloride 84 L Carbon Dioxide 37 H BUN 23 H Creatinine 0.70 Estimated GFR > 60 BUN/Creatinine Ratio 32.9 H Glucose 100 H Lactate 2.2 H 1.6 Calcium 9.5 Magnesium 1.7 Total Bilirubin 3.5 H AST 77 H ALT 56 H Alkaline Phosphatase 87 Total Creatine Kinase 61 Troponin I 0.022 0.023 Total Protein 7.7 Albumin 4.6 Globulin 3.1 Albumin/Globulin Ratio 1.5 Lipase 19 L Procalcitonin 0.089 Urine RBC 0-1/hpf Urine WBC 1-5/hpf Ur Squamous Epith Cells 0-1 /hpf Urine Bacteria Many (>30) H Ur Culture Indicated? Cult not indicated Vol Urine Centrifuged Low vol <1ml unspun A U Opiates 300ng/mL cut Negative Ur Oxycodone Screen Positive H Urine Methadone Screen Negative Ur Barbiturates Screen Negative U Tricyclic Antidepress Negative Ur Phencyclidine Scrn Negative Ur Amphetamines Screen Negative U Methamphetamines Scrn Negative Ur MDMA Scrn (Ecstasy) Negative U Benzodiazepines Scrn Negative Urine Cocaine Screen Negative U Marijuana (THC) Screen Negative Urine pH Normal Urine Specific [place] Normal Ethyl Alcohol < 10 Ur Creatinine Normal Blood Type A Positive Antibody Screen Negative 02/19/25 04:35 WBC 10.1 RBC 4.56 Hgb 14.6 Hct 39.7 MCV 87.1 MCH 32.0 MCHC 36.7 H RDW 14.1 Plt Count 141 L Neut % (Auto) 59.2 Lymph % (Auto) 30.3 Stephens % (Auto) 8.4 Eos % (Auto) 1.8 L Baso % (Auto) 0.3 Neut # (Auto) 6000 Lymph # (Auto) 3000 Stephens # (Auto) 800 Eos # (Auto) 200 Baso # (Auto) 0 RBC Morphology See below Rouleaux 1+ H PT INR APTT Sodium 138 Potassium 2.3 L* Chloride 91 L Carbon Dioxide 35 H BUN 19 H Creatinine 0.58 Estimated GFR > 60 BUN/Creatinine Ratio 32.8 H Glucose 81 Lactate Calcium 9.0 Magnesium Total Bilirubin 2.9 H AST 59 H ALT 47 H Alkaline Phosphatase 83 Total Creatine Kinase Troponin I Total Protein 6.7 Albumin 3.9 Globulin 2.8 Albumin/Globulin Ratio 1.4 Lipase Procalcitonin Urine RBC Urine WBC Ur Squamous Epith Cells Urine Bacteria Ur Culture Indicated? Vol Urine Centrifuged U Opiates 300ng/mL cut Ur Oxycodone Screen Urine Methadone Screen Ur Barbiturates Screen U Tricyclic Antidepress Ur Phencyclidine Scrn Ur Amphetamines Screen U Methamphetamines Scrn Ur MDMA Scrn (Ecstasy) U Benzodiazepines Scrn Urine Cocaine Screen U Marijuana (THC) Screen Urine pH Urine Specific [place] Ethyl Alcohol Ur Creatinine Blood Type Antibody Screen Assessment & Plan Assessment & Plan narrative: 74-year-old female with syncopal episode and severe hypokalemia of unclear etiology with underlying severe dementia Plan: Patient will be admitted to the hospital for further treatment and monitoring Assessment 1. Hypokalemia unclear etiology. Patient has had previous history. Patient has received 4 K riders yesterday and only improved potassium from 2.2- 2.3. We will give 8 today. Will recheck potassium after. Assessment 2. Syncopal episode with loud systolic murmur with no recent evaluation of this. Plan: Will check echo. Previous workup in the ER and laboratory testing do not show any cardiac etiology. Unclear how long patient was down. Will check a creatinine kinase with next labs. Assessment 3. Severe dementia Plan: Patient takes mirtazapine at night. We will continue this. She is also on duloxetine which he was on previously. We will provide Seroquel to take as needed. Will consult Care management for placement Assessment 4. Hypertension currently well-controlled Plan: Continue outpatient medications of metoprolol Code status is DNR/DNI 75 minutes was spent with patient discussing with physician, nursing, pharmacy, meeting with patient reviewing her clinic chart and hospital chart and workup in the ER and formulating a plan and documentation Time-Based Coding :: [TOTAL MINUTES] spent with patient and on the chart (including review of chart, obtaining history, exam, reviewing outside data, placing orders, documenting exam and treatment plan, and counseling patient) on [DATE].
[2025-02-19] MEDS: PANTOPRAZOLE DR 40 MG TABLET PO ×2 (09:40→21:12)
[2025-02-19] MEDS: GABAPENTIN 600 MG TABLET PO ×3 (09:40→21:12)
[2025-02-19] MEDS: FUROSEMIDE 20 MG TABLET PO ×2 (09:40→21:12)
[2025-02-19] MEDS: OXYBUTYNIN 5 MG ER TAB 15 MG PO (09:40)
[2025-02-19] MEDS: METOPROLOL IR 25 MG TABLET PO (09:40)
--- NOTE | 2025-02-19 09:40 | DI.ECHO.S_ITS ---
[facility]+ [facility] : : [id number] : [address] [address] : : [id number] : : Phone: [phone] Echocardiogram Report + + :Name: NILA GRADY Study Date: 02/19/2025 Height: 66 in : :[facility] ReadingLocation: Weight: 151 lb : : Gender: Female BSA: 1.8 m2 : :: 1950 Age: 74 yrs BP: 121/81 mmHg: :Reason For Study: SYNCOPE, AORTIC STENOSIS : :Ordering Physician: LAURA, : :JOSEPH Performed By: Arnulfo Pacheco : :Referring: JOSEPH SANCHEZ : + + Interpretation Summary Left ventricular wall thickness is mildly increased. The ejection fraction is estimated to be 65-70%. Diastolic function could not be accurately assessed due to contradictory data. The left atrium is mildly dilated. The right ventricle is normal in size and function. There is severe aortic stenosis. There is mild aortic regurgitation. Pulmonary artery pressures cannot be estimated because of the lack of a measurable TR jet velocity but the IVC suggests a CVP of around 3 mmHg. Compared to the prior study 12/11/2023, the aortic valve remains severely stenotic however the gradient has increased with the expected decrease in valve area. Procedure: A two-dimensional transthoracic echocardiogram with color flow and Doppler was performed. The study quality was technically adequate. Comparison is made with the echocardiogram of 12/11/2023. The patient was in sinus rhythm with heart rates between 62-70 bpm during the exam. Left Ventricle: The left ventricle is normal in size. Left ventricular wall thickness is mildly increased. The ejection fraction is estimated to be 65- 70%. There are no focal wall motion abnormalities. Diastolic function could not be accurately assessed due to contradictory data. Right Ventricle: The right ventricle is normal in size and function. Atria: The left atrium is mildly dilated. Right atrial size is normal. There is no Doppler evidence for an interatrial shunt. Mitral Valve: The mitral valve leaflets appear to open well. There is mild mitral annular calcification. There is no mitral valve stenosis. There is trace mitral regurgitation. Aortic Valve: The aortic valve is not well visualized. Aortic valve is at least moderately calcified. There is severe aortic stenosis. The calculated aortic valve area is 0.87 cm2. The peak aortic velocity is 4.9 m/sec. The aortic valve mean gradient is 57 mmHg. This is progressive compared to the previous study. There is mild aortic regurgitation. Tricuspid Valve: The tricuspid valve leaflets are thin and pliable. There is trace tricuspid regurgitation. Pulmonary artery pressures cannot be estimated because of the lack of a measurable TR jet velocity but the IVC suggests a CVP of around 3 mmHg. Pulmonic Valve: The pulmonic valve is not well visualized. There is a trace or physiologic amount of pulmonic regurgitation. Great Vessels: The aortic root is normal size. The ascending aorta is normal in size. The aortic arch could not be visualized. The IVC is of normal diameter and collapses greater than 50% with a sniff. This suggests a low right atrial pressure of 3 mm Hg. Pericardium/ Pleura There is no pericardial effusion. MMode/2D Measurements & Calculations LVIDd: 3.7 cm LVOT diam: 1.9 cm LVIDs: 2.5 cm Ao root diam: 2.4 cm FS: 32.9 % asc Aorta Diam: 2.7 cm IVSd: 1.3 cm LVPWd: 1.2 cm LV epps. diameter/BSA (cm/m^2): 2.1 LV sys. diameter/BSA (cm/m^2): 1.4 LA A2 area: 19.3 cm2 RA long axis: 4.2 cm LA A4 area: 20.6 cm2 RA area: 10.8 cm2 LA length (vol): 5.2 cm RA vol: 23.9 ml LA vol: 65.2 ml RA : 13.5 ml/m2 LA vol index: 36.7 ml/m2 IVC diam: 1.7 cm RVD1 (basal): 3.4 cm RVD2 (mid): 2.9 cm TAPSE: 1.8 cm Doppler Measurements & Calculations Ao V2 max: 489.6 cm/sec LVOT Max Ray: 144.6 cm/sec Ao V2 mean: 358.8 cm/sec LV V1 max P.4 mmHg Ao max P.9 mmHg LV V1 VTI: 32.2 cm Ao mean P.0 mmHg ATIF(I,D): 0.86 cm2 Ao V2 VTI: 109.6 cm ATIF(V,D): 0.87 cm2 sev ratio: 0.29 ATIF indexed to BSA (cm^2/m^2): 0.49 AI P1/2t: 894.3 msec AI dec slope: 126.8 cm/sec2 MV E max ray: 61.7 cm/sec TR max ray: 230.5 cm/sec MV A max ray: 100.1 cm/sec TR max P.3 mmHg MV E/A: 0.62 PA pr(Accel): 60.2 mmHg Med Peak E' Ray: 4.7 cm/sec E/E' med: 13.1 Lat Peak E' Ray: 4.3 cm/sec E/E' lat: 14.4 E/e' average: 13.7 MV dec time: 0.23 sec SV(LVOT): 94.6 ml Reading Physician:12:06 PM
[2025-02-19] MEDS: DULOXETINE 30 MG CAPSULE 60 MG PO (09:41)
[2025-02-19] MEDS: ENOXAPARIN 40 MG/0.4 ML SYRINGE SUBCUT (09:41)
--- NOTE | 2025-02-19 09:55 | PC.NURSE ---
Day shift: Pt unable to feed herself this AM. Had a small bite of scram egg and about a third of a banana. Approx 50mls of skim milk. Tolerated well with no coughing present. Tolerated morning meds also. Given in lesly pudding.
[2025-02-19] MEDS: QUETIAPINE 25 MG TABLET 12.5 MG PO ×2 (10:39→21:12)
[2025-02-19 11:24] LABS: Magnesium 1.4 mg/dL (1.6-2.3)
[2025-02-19] MEDS: POTASSIUM CHLORIDE 20 MEQ TAB 40 MEQ PO (13:39)
[2025-02-19 13:49] LABS: Creatine Kinase 48 U/L (30-135)
[2025-02-19 14:20] VITALS: BP 124/79; PULSE 75; RESP 18; TEMP 36.7; O2SAT 93
[2025-02-19] MEDS: MAGNESIUM OXIDE 400 MG TABLET PO ×2 (15:46→21:12)
[2025-02-19 16:19] LABS: BUN Creatinine Ratio 29.5 (6-22); Blood Urea Nitrogen 18 mg/dL (7-17); Calcium 8.6 mg/dL (8.4-10.2); Carbon Dioxide 34 mmol/L (22-32); Chloride 93 mmol/L (98-107); Estimated Glomerular Filt Rate > 60 mL/min (>60); Glucose 105 mg/dL (70-99); HEMOLYSIS 16 (0-50); Sodium 134 mmol/L (137-145)
[2025-02-19 16:23] LABS: Potassium 2.7 mmol/L (3.4-5.1)
[2025-02-19 18:00] VITALS: BP 138/100; PULSE 59; RESP 16; TEMP 36.4; O2SAT 94
[2025-02-19 20:00] VITALS: BP 113/73; PULSE 59; RESP 18; TEMP 36.2; O2SAT 98
[2025-02-19] MEDS: MIRTAZAPINE 15 MG TABLET PO (21:12)
[2025-02-19] MEDS: CYCLOBENZAPRINE 10 MG TABLET PO (21:12)
--- NOTE | 2025-02-19 23:41 | PC.NURSE ---
kiln burner helper RN was given oral report from day shift RN, Patient had received 6/8 potassium bags before the ELIDA mid-line became non functional and had to be removed. Day shift RN got a communication order from MD to leave out IV. kiln burner helper RN noted that Code status was not assigned to patient. RN checked red folder and found POLST form, indicating patients wishes to be DNR. RN called night MD attendant honor bar Dr Portillo; MD gave verbal order for DNR; RN informed MD that patient did not have IV access, and that potassium was 2.7 ; lab ordered for A.M. draw recheck. RN asked if MD would like cardiac telemetry ordered for patient; MD did not. odd ticket clerk Cuca informed of situation.
[2025-02-20 08:33] VITALS: BP 131/85; PULSE 56; RESP 16; TEMP 35.8; O2SAT 99
[2025-02-20] MEDS: DULOXETINE 30 MG CAPSULE 60 MG PO (09:15)
[2025-02-20] MEDS: OXYBUTYNIN 5 MG ER TAB 15 MG PO (09:15)
[2025-02-20] MEDS: METOPROLOL IR 25 MG TABLET PO (09:15)
[2025-02-20] MEDS: MAGNESIUM OXIDE 400 MG TABLET PO ×2 (09:15→21:01)
[2025-02-20] MEDS: PANTOPRAZOLE DR 40 MG TABLET PO ×2 (09:15→21:00)
[2025-02-20] MEDS: GABAPENTIN 600 MG TABLET PO ×3 (09:15→21:00)
[2025-02-20] MEDS: FUROSEMIDE 20 MG TABLET PO ×2 (09:15→21:01)
[2025-02-20] MEDS: ENOXAPARIN 40 MG/0.4 ML SYRINGE SUBCUT (09:15)
[2025-02-20] MEDS: POTASSIUM CHLORIDE 20 MEQ TAB 40 MEQ PO ×3 (10:00→21:04)
--- NOTE | 2025-02-20 11:27 | PC.NURSE ---
Day shift: MD Sosa made aware that patient has no IV access and lab was unable to draw AM labs. ok'ed no potassium check this AM and ordered oral potassium. Patient alert to first name only, can answer some yes and no questions, 1:1 feed eating approximately 10 percent of meals, unable to follow directions enough to drink through a straw, ok with soft foods. Will continue to monitor.
[2025-02-20 14:25] LABS: Alanine Aminotransferase 39 IU/L (<35); Albumin 3.5 g/dL (3.5-5.0); Albumin Globulin Ratio 1.4 (1.0-2.8); Alkaline Phosphatase 75 U/L (38-126); Aspartate Aminotransferase 43 IU/L (14-36); BUN Creatinine Ratio 24.1 (6-22); Bilirubin Total 1.6 mg/dL (0.2-1.3); Blood Urea Nitrogen 19 mg/dL (7-17); Calcium 8.8 mg/dL (8.4-10.2); Carbon Dioxide 38 mmol/L (22-32); Chloride 96 mmol/L (98-107); Estimated Glomerular Filt Rate > 60 mL/min (>60); Globulin 2.5 g/dL (1.7-4.1); Glucose 106 mg/dL (70-99); HEMOLYSIS < 15 (0-50); Sodium 138 mmol/L (137-145)
[2025-02-20] MEDS: IBUPROFEN 400 MG TABLET PO ×2 (14:30→21:00)
--- NOTE | 2025-02-20 14:50 | PM.PN.1 ---
Subjective Subjective Date Patient Seen: 02/20/25 Time Patient Seen: 09:00 Interval history: chief complaint: syncope/fall, hypokalemia Pt is resting comfortably today - conversant on rousing but minimally oriented. Discussion with her today c/o Dr. Knox yielded comfrot care/DNR POLST form. Plan ongoing via [facility] Jenny Young [phone] may result in a bed tomorrow. They will be coming to evaluate at 3 today. Her hypokalemia continues to improve as it is repleted and she is nearing dichargable status medically although it does not seem like her home is a suitable discharge plan. Exam Vital Signs (past 8 hours): - 02/20/25 08:33 Temperature 96.4 F L Pulse Rate 56 L Respiratory Rate 16 Blood Pressure 131/85 Pulse Oximetry 99 Oxygen Flow Rate 0 Oxygen Delivery Method Room Air Oxygen Flow Rate 0 Narrative Exam Narrative: laying on hospital bed resting comfortably Resp Other: clear to auscultation bilaterally on room air Cardio Other: well perfused with systolic ejection murmur GI Other: soft nontender active bowel sounds Neuro Other: Alert oriented to self only moving all limbs equally Objective Labs 02/19/25 04:35 02/20/25 13:55 Labs: Laboratory Results - last 24 hr 02/19/25 15:57 Sodium 134 L Potassium 2.7 L* Chloride 93 L Carbon Dioxide 34 H BUN 18 H Creatinine 0.61 Estimated GFR > 60 BUN/Creatinine Ratio 29.5 H Glucose 105 H Calcium 8.6 PFSH Medical History Incontinence Sleep apnea Myoclonic jerking Chronic low back pain with left-sided sciatica Labyrinthitis Herpes (Unknown) Chronic fatigue (Unknown) Fibromyalgia (Unknown) IBS (irritable bowel syndrome) (Unknown) Obstructive sleep apnea (Unknown) Anxiety (Unknown) Depression (Unknown) Hypertension (Unknown) Osteoporosis (Unknown) Nelson's esophagus (Unknown) GERD (gastroesophageal reflux disease) (Unknown) Surgical History Hx of hysterectomy (Unknown) History of hip surgery (Unknown) History of total right hip replacement (Unknown) History of total left hip replacement (Unknown) Status post delivery Status post tonsillectomy and adenoidectomy History of third molar tooth extraction Status post colonoscopy Family History Brother Congestive heart failure Father History of heart valve replacement Mother Diabetes mellitus Social History household members: spouse alcohol intake: current Assessment & Plan Assessment & Plan narrative: 74-year-old female with syncopal episode and severe hypokalemia of unclear etiology with underlying severe dementia #acute hypokalemia much improved since admission with repletion but still under 3 as of yesterday will continue to replete and check #severe aortic valve stenosis Per yesterday's echo, cross sectional area is ~0.87 with good ejection fraction. Likely contributory to syncopal event. Pt is comfort care status. #severe dementia continue home mirtazapine, will continue with duloxetine. Seroquel available prn. #essential hypertension stable continue home metoprolol Dispo: patient is comfort status and placement is being explored c/o [facility] Jenny Young [phone] possibly may be ready to go tomorrow Code status is DNR/DNI PCP: Karoline Reyna MDM: Time-Based Coding :: [TOTAL MINUTES] spent with patient and on the chart (including review of chart, obtaining history, exam, reviewing outside data, placing orders, documenting exam and treatment plan, and counseling patient) on [DATE].
--- NOTE | 2025-02-20 14:54 | CM.DPC ---
DCP Cont: Dr. Villalobos called and asked this nurse to call Luis Angel Young, she is the [facility] RN working on this case, patient's gearcase assembler. Her phone number is: [phone]. He also indicated that he would be bringing in some advanced care directives for patient's spouse to sign. Dr. Villalobos was thinking that patient could discharge this pm, if there was a secure place for patient. Called Luis Angel Young, at the number stated above. She went into the history of the case, spouse also has medical needs, has history of PTSD as well, trying to care for his spouse. There is also a son involved that resides in [place]. Luis Angel confirmed that [facility], is coming to evaluate patient this pm, at about 3:[address] Villalobos on this. First have to see if they will accept patient. Daily rate has been established at about $172.00 per day. Luis Angel indicated that if they accept patient, she should be able to discharge tomorrow. If not, luis angel will continue to look. Nurse, Marcela Campbell, working the floor is aware that [facility] will be here. If no secure place, and can't discharge tomorrow, most likely will be avoidable day, her updated potassium level is currently pending. Will update CLAUDIA Silver, she she comes in tomorrow, since she will have the case. Paola Parra, RN/Cooling Pan Tender
[2025-02-20 15:21] LABS: Potassium 2.7 mmol/L (3.4-5.1)
[2025-02-20 15:38] LABS: Magnesium 1.7 mg/dL (1.6-2.3)
[2025-02-20] MEDS: ACETAMINOPHEN 325 MG TABLET 650 MG PO (15:59)
[2025-02-20] MEDS: MAGNESIUM CHLORIDE 64 MG TABLET 128 MG PO (16:25)
[2025-02-20 20:00] VITALS: BP 122/80; PULSE 89; RESP 19; TEMP 36.5; O2SAT 94
[2025-02-20] MEDS: SENNOSIDES 8.6 MG TABLET 17.2 MG PO (21:00)
[2025-02-20] MEDS: CYCLOBENZAPRINE 10 MG TABLET PO (21:00)
[2025-02-20] MEDS: QUETIAPINE 25 MG TABLET 12.5 MG PO (21:00)
[2025-02-20] MEDS: MIRTAZAPINE 15 MG TABLET PO (21:00)
[2025-02-21 05:03] LABS: BUN Creatinine Ratio 19.6 (6-22); Blood Urea Nitrogen 22 mg/dL (7-17); Calcium 9.4 mg/dL (8.4-10.2); Carbon Dioxide 35 mmol/L (22-32); Chloride 100 mmol/L (98-107); Estimated Glomerular Filt Rate 52 mL/min (>60); Glucose 109 mg/dL (70-99); HEMOLYSIS < 15 (0-50); Magnesium 1.7 mg/dL (1.6-2.3); Potassium 3.6 mmol/L (3.4-5.1); Sodium 139 mmol/L (137-145)
[2025-02-21 05:13] LABS: Add Manual Diff / Slide Review NO; Basophils Absolute Auto 100 /uL (0-100); Basophils Percent Auto 0.8 % (0-2); Eosinophils Absolute Auto 200 /uL (0-450); Eosinophils Percent Auto 2.5 % (2-4); Hematocrit 35.8 % (36-46); Hemoglobin 12.7 g/dL (12.0-16.0); Lymphocytes Absolute Auto 2900 /uL (1100-4500); Lymphocytes Percent Auto 35.6 % (25-40); Mean Corpuscular HGB Conc 35.4 % (30-36); Mean Corpuscular Hemoglobin 31.4 PG (26-34); Mean Corpuscular Volume 88.6 fL (80-100); Monocytes Absolute Auto 900 /uL (0-900); Monocytes Percent Auto 10.8 % (3-14); Neutrophils Absolute Auto 4100 /uL (1500-7000); Neutrophils Percent Auto 50.3 % (50-75); Platelet Count 181 X10^3/uL (150-400); Red Blood Cell Count 4.04 X10^6/uL (4.0-5.2); Red Cell Distribution Width 14.3 % (11.6-14.8); White Blood Cell Count 8.2 X10^3/uL (4.5-11.0)
[2025-02-21 08:00] VITALS: BP 107/69; PULSE 66; RESP 16; TEMP 36.5; O2SAT 95
--- NOTE | 2025-02-21 10:16 | CM.DPNOTE ---
Addendum entered by CLAUDIA Aparicio 02/21/25 14:45: DCP Updated: DCP confirmed BLS transport with [facility] at 1000 with an arrival at [facility] at 1100. NWA BLS form completed and signed by Provider. DCP notified [facility] Director of confirmed transport, requested RN-RN report phone number. DCP notified RN, Provider and [facility]. ANABELL Hopper Addendum entered by CLAUDIA Aparicio 02/21/25 10:50: DCP Updated: [facility] completed bedside assessment of patient. Lexii Julio, Assignment Clerk, accepts patient to their care. Requesting pt to be transported on 02/22 with an arrival of 1100 via BLS transport (DCP to coordinate). [facility] requesting patient to have hospice services at their facility as well as patient's PRN seroquel to be changed to scheduled. DCP notified pt Provider and [facility] RN of acceptance, Provider to be notified of medical order requests at the facility. Plan: Anticipating discharge to [facility] ([address] [address]) via BLS transport to arrive at 1100 on Monday, 02/22. DCP to schedule transport. ANABELL Hopper Original Note: DCP Continued: Reviewed EMR and team rounds for pt?s medical status. Per Provider, family decided to move towards comfort measures while awaiting placement at an assisted living facility or adult family home via [facility]. Per [facility] in [place], scheduled assessment on 02/20 had to be cancelled and is now rescheduled for 02/21 at approximately 1030. [facility] [employer] requesting printed H&P, Progress Note and Nursing/DCP Assessment for their review prior to assessing patient. DCP printed and relayed to [facility] when [employer] checks in. DCP notified pt RN and Provider of pending assessment for [facility] placement. DCP spoke with [facility] RN, Jenny (ph# [phone]) and relayed information about cancelled assessment. Per [facility] RN, all [facility] and ALFs have been sent referral with functional assessment and no other accommodations found at this time. [facility] RN sent this TINNING MACHINE SET UP OPERATOR functional assessment and daily rate documents in case other referrals can be sent at this time. DCP updated pt spouse, Home, of current care coordination. Plan: Pending [facility] acceptance, anticipating [facility] vs. [facility] placement. CM Team will continue to follow for coordination of discharge plans. ANABELL Hopper
--- NOTE | 2025-02-21 11:31 | P.PN_ITS ---
Subjective Subjective Interval history: CC: fall/dementia/hypokalemia PT accepted at [facility] in [place] for tomorrow. Comfort care. quet. mora Exam Vital Signs (past 8 hours): - 02/21/25 08:00 Temperature 97.7 F Pulse Rate 66 Respiratory Rate 16 Blood Pressure 107/69 Pulse Oximetry 95 Oxygen Flow Rate 0 Oxygen Delivery Method Room Air Oxygen Flow Rate 0 Narrative Exam Narrative: Elder resting comfortably in hospital bed Resp Other: Unlabored breathing clear to auscultation bilaterally Cardio Other: Regular rate well-perfused GI Other: Soft nontender active bowel sounds Neuro Other: Minimally oriented and conversant moving all limbs equally Objective Labs 02/21/25 04:33 02/21/25 04:33 Labs: Laboratory Results - last 24 hr 02/20/25 02/20/25 02/21/25 13:55 Unknown 04:33 WBC 8.2 RBC 4.04 Hgb 12.7 Hct 35.8 L MCV 88.6 MCH 31.4 MCHC 35.4 RDW 14.3 Plt Count 181 Neut % (Auto) 50.3 Lymph % (Auto) 35.6 [place] % (Auto) 10.8 Eos % (Auto) 2.5 Baso % (Auto) 0.8 Neut # (Auto) 4100 Lymph # (Auto) 2900 [place] # (Auto) 900 Eos # (Auto) 200 Baso # (Auto) 100 Sodium 138 139 Potassium 2.7 L* 3.6 Chloride 96 L 100 Carbon Dioxide 38 H 35 H BUN 19 H 22 H Creatinine 0.79 1.12 H Estimated GFR > 60 52 L BUN/Creatinine Ratio 24.1 H 19.6 Glucose 106 H 109 H Calcium 8.8 9.4 Magnesium 1.7 1.7 Total Bilirubin 1.6 H AST 43 H ALT 39 H Alkaline Phosphatase 75 Total Protein 6.0 L Albumin 3.5 Globulin 2.5 Albumin/Globulin Ratio 1.4 PFSH Medical History Incontinence Sleep apnea Myoclonic jerking Chronic low back pain with left-sided sciatica Labyrinthitis Herpes (Unknown) Chronic fatigue (Unknown) Fibromyalgia (Unknown) IBS (irritable bowel syndrome) (Unknown) Obstructive sleep apnea (Unknown) Anxiety (Unknown) Depression (Unknown) Hypertension (Unknown) Osteoporosis (Unknown) Nelson's esophagus (Unknown) GERD (gastroesophageal reflux disease) (Unknown) Surgical History Hx of hysterectomy (Unknown) History of hip surgery (Unknown) History of total right hip replacement (Unknown) History of total left hip replacement (Unknown) Status post delivery Status post tonsillectomy and adenoidectomy History of third molar tooth extraction Status post colonoscopy Family History Brother Congestive heart failure Father History of heart valve replacement Mother Diabetes mellitus Social History household members: spouse alcohol intake: current Assessment & Plan Assessment & Plan narrative: 74-year-old female with syncopal episode and severe hypokalemia of unclear etiology with underlying severe dementia #acute hypokalemia Improving with repletion monitor #severe aortic valve stenosis Per echo, cross sectional area is ~0.87 with good ejection fraction. Likely contributory to syncopal event. Pt is comfort care status. #severe dementia continue home mirtazapine, will continue with duloxetine. Seroquel scheduled. #essential hypertension stable continue home metoprolol Dispo: patient is comfort status and plan is placement tomorrow Code status is DNR/DNI PCP: Karoline Reyna MDM: Time-Based Coding :: [TOTAL MINUTES] spent with patient and on the chart (including review of chart, obtaining history, exam, reviewing outside data, placing orders, documenting exam and treatment plan, and counseling patient) on [DATE].
[2025-02-21] MEDS: POTASSIUM CHLORIDE 20 MEQ TAB 40 MEQ PO (17:22)
[2025-02-21 20:00] VITALS: BP 86/62; PULSE 73; RESP 19; TEMP 36.3; O2SAT 94
[2025-02-21] MEDS: MAGNESIUM OXIDE 400 MG TABLET PO (20:23)
[2025-02-21] MEDS: QUETIAPINE 25 MG TABLET 12.5 MG PO (20:23)
[2025-02-21] MEDS: SENNOSIDES 8.6 MG TABLET 17.2 MG PO (20:23)
[2025-02-21] MEDS: GABAPENTIN 600 MG TABLET PO (20:23)
[2025-02-21] MEDS: CYCLOBENZAPRINE 10 MG TABLET PO (20:23)
[2025-02-21] MEDS: MIRTAZAPINE 15 MG TABLET PO (20:23)
[2025-02-22] MEDS: ONDANSETRON 4 MG ODT SL (07:35)
[2025-02-22] MEDS: ACETAMINOPHEN 325 MG TABLET 650 MG PO (07:35)
[2025-02-22 08:00] VITALS: BP 147/83; PULSE 73; RESP 15; TEMP 36.2; O2SAT 98
--- NOTE | 2025-02-22 09:10 | PM.DS.IH.1 ---
History of Present Illness History of Present Illness Date Patient Seen: 02/22/25 Time Patient Seen: 09:10 Chief complaint: Weakness,fall,lying on floor up to 24 hours Narrative: This is a very pleasant 74-year-old female who is followed by Dr. Knox as her PCP. Patient has severe dementia and was at home with her when she sustained a syncopal episode. She was brought to the ER for evaluation was found to have severe hypokalemia and admitted for the same. She had CT scan of her head neck chest abdomen and pelvis which did not really reveal any acute abnormality but a stable old T3 compression fracture. The patient has received replacement with K riders and no improvement in her potassium more K riders are currently going in right now. Patient is unable to give history given her dementia in his alert to person only. Patient had unremarkable night. Patient is unable to answer questions but awakens to touch and holds my hand. {from Dr. Reyna's H&P 02/19/25} Discharge Providers Provider Date of admission: 02/18/25 18:27 Discharge Date: 02/22/25 Primary care physician: Julisa Knox MD Consults: 02/18/25 14:02 Consult to [facility] [place] [place] - General Service Officer Stat Comment: General Service Officer Consult needed for:: Not safe at home Comment: Patient was found down for 24 hrs, patient lives with and did not call for help, [facility] called 911 02/21/25 11:34 Consult to Discharge Planning Routine Comment: Discharge provider: Zackery Hanna MD Summary Hospital Course Discharge Diagnosis: 1. Acute hypokalemia 2. Dementia 3. Syncope 4. Hypertension 5. Severe aortic stenosis 6. Chronic pain syndrome 7. Obesity with BMI 24 -24.9 Hospital Course: As above patient was admitted to the hospital after sustaining a syncopal spell. She had her potassium replaced parenterally and then orally and this eventually did stabilize Echocardiography demonstrated severe aortic stenosis although patient did not not demonstrate any evidence of active symptoms related to this accept perhaps the syncopal spell No dysrhythmias were noted Patient remained responsive but only minimally oriented. Discussion was held with the patient's spouse including patient's PCP and it was elected to move her to a comfort care plan. The assistance of [facility] respiratory care technician as well as [facility] care managers plans were made to transfer patient to an outside care facility on [facility] for hospice care and end of life care in the setting of decision to make her comfort care Her antihypertensives were discontinued as she was hypotensive at times. She was continued on other comfort related medications including her mental health medications her diuretics and electrolyte replacement therapy etcetera Patient was felt to be stable for discharge to [facility]in [place] by the morning of the 22 of February Status at Discharge Cognitive/behavioral status at discharge: at baseline, confused Functional status at discharge: bed bound Overall status at discharge: patient is not back to baseline Time Spent with Patient Time spent: Greater than 30 minutes Exam Vital Signs (past 8 hours): - 02/22/25 08:00 Temperature 97.2 F L Pulse Rate 73 Respiratory Rate 15 Blood Pressure 147/83 H Pulse Oximetry 98 Oxygen Flow Rate 0 Oxygen Delivery Method Room Air Oxygen Flow Rate 0 Objective Labs 02/21/25 04:33 02/21/25 04:33 [facility] Medical History Severe aortic stenosis Chronic pain syndrome Generalized osteoarthritis of multiple sites Depression with anxiety Uncomplicated opioid use Compression fracture of L1 lumbar vertebra Gastroesophageal reflux disease (12/07/02) Depressive disorder (12/07/02) Osteoporosis (02/09/11) Ulcerative colitis (02/09/11) Obstructive sleep apnea syndrome (09/05/13) Essential hypertension (06/05/12) Hyperlipidemia (11/25/15) Low vitamin D level (11/25/15) Morbid obesity CHF (congestive heart failure) Acute hypokalemia Advanced dementia Diarrhea (11/01/02) Incontinence Sleep apnea Myoclonic jerking Chronic low back pain with left-sided sciatica Herpes (Unknown) Chronic fatigue (Unknown) Fibromyalgia (Unknown) IBS (irritable bowel syndrome) (Unknown) Obstructive sleep apnea (Unknown) Anxiety (Unknown) Depression (Unknown) Hypertension (Unknown) Osteoporosis (Unknown) Nelson's esophagus (Unknown) GERD (gastroesophageal reflux disease) (Unknown) Surgical History Status post total hip replacement, bilateral Hx of hysterectomy (Unknown) History of hip surgery (Unknown) History of total right hip replacement (Unknown) History of total left hip replacement (Unknown) Status post delivery Status post tonsillectomy and adenoidectomy History of third molar tooth extraction Status post colonoscopy Family History Brother Congestive heart failure Father History of heart valve replacement Mother Diabetes mellitus Social History household members: spouse alcohol intake: current Discharge Assessment & Plan Assessment and Plan Plan of Treatment: Patient to be discharged to facility in [place] for end of life care as noted in care management notes as well as prior physician documentation Discharge Plan Discharge Plan Other facility: [facility] [place] Discharge orders & Medications Discharge Orders: Discharge (Order); Ordered 02/22/25 Ordered By: Zackery Hanna Prescriptions: New cyclobenzaprine 10 mg Tablet 10 mg PO BEDTIME Qty: 30 0RF sennosides [senna] 8.6 mg Tablet 17.2 mg PO BEDTIME Qty: 30 0RF potassium chloride [Klor-Con M20] 20 mEq Tablet,Er Particles/Crystals 40 meq PO BIDWM Qty: 60 0RF magnesium oxide 400 mg (241.3 mg magnesium) Tablet 400 mg PO BID Qty: 60 0RF docusate sodium 100 mg Capsule 100 mg PO DAILY Qty: 30 0RF Continued gabapentin 600 mg tablet 600 mg PO TID Qty: 270 2RF mirtazapine 15 mg tablet 15 mg PO BEDTIME Qty: 90 3RF diphenoxylate-atropine 2.5-0.025 mg tablet See Rx Instructions .ROUTE .COMPLEX Qty: 90 0RF Dose Instruction: LIKE 1 TABLET BY MOUTH EVERY 6 TO 8 HOURS NEEDED FOR DIARRHEA Rx Instructions: LIKE 1 TABLET BY MOUTH EVERY 6 TO 8 HOURS NEEDED FOR DIARRHEA furosemide 20 mg tablet 20 mg PO BID Qty: 180 3RF oxybutynin chloride 15 mg tablet extended release 24hr 15 mg PO DAILY Qty: 90 1RF Changed quetiapine 25 mg tablet 12.5 mg PO BEDTIME Qty: 30 0RF pantoprazole 40 mg tablet,delayed release (DR/EC) 40 mg PO BID Qty: 60 0RF duloxetine 30 mg capsule,delayed release(DR/EC) 60 mg PO DAILY Qty: 90 3RF Discontinued esomeprazole magnesium [Nexium] 40 mg capsule,delayed release(DR/EC) 40 mg PO BID Qty: 180 3RF metoprolol tartrate 25 mg tablet 25 mg PO DAILY Qty: 90 2RF valacyclovir 1 gram tablet See Rx Instructions .ROUTE .COMPLEX Qty: 20 0RF Dose Instruction: TAKE 1/2 TABLET BY MOUTH TWICE DAILY Rx Instructions: TAKE 1/2 TABLET BY MOUTH TWICE DAILY meclizine 25 mg tablet 25 mg PO BID PRN (Reason: dizziness) Qty: 60 2RF duloxetine 60 mg capsule,delayed release(DR/EC) 60 mg PO DAILY Qty: 90 3RF nitroglycerin 0.4 mg tablet, sublingual 0.4 mg sublingual PRN PRN (Reason: Chest Pain) lisinopril 5 mg tablet 5 mg PO DAILY trazodone 50 mg tablet 50 mg PO BEDTIME No Action (DME) Disabled Parking Pass Qty: 1 0RF Dose Instruction: As directed Rx Instructions: As directed (DME) Stationary Oxygen Concentrator See Rx Instructions .Route .MEDSUPPLY Qty: 1 0RF Rx Instructions: Use to administer 2LPM continuous oxygen (DME) Nasal Canula and Tubing See Rx Instructions .Route .MEDSUPPLY Qty: 1 0RF Rx Instructions: Used to administer continuous oxygen. (DME) Oxygen Tank See Rx Instructions .Route .MEDSUPPLY Qty: 1 0RF Rx Instructions: Use to administer 2LPM continuous oxygen for transportation Follow up/Referrals: Julisa Knox MD [Primary Care Provider] - Discharge Health Status Multidrug resistant organism: No MDRO Precautions: [place] Diet/Activity/Treatments Diet: Diet as Tolerated Liquid consistency: Normal/Thin Food texture: Regular Visit Report/Discharge Packet Stand Alone Forms: Patient Portal/API Discharge Data Primary Care Provider: Julisa nKox PROFEE Charge Codes Discharge inpatient/observation: [id number]
--- NOTE | 2025-02-22 09:40 | CM.DPC ---
DCP Discharge on Comfort Per MD, pt remains stable for discharge today on Comfort Care to [facility] with Hospice. Orders placed. RUSSEL faxed d/c summary and med list to [facility] [place] and called their DON Angiean [phone] and updated on d/c today and confirmed RN report number [phone] and they are anticipating pt arrival around [id number] today. RUSSEL faxed d/c summ and med list [facility] and called intake Lizzie and updated on pt d/c today and they will follow for info visit at [facility] and scheduling with the facility for Start of Care. RUSSEL updated FRAME NAILER, retread operator and RN and provided number to call report. RUSSEL confirmed with [facility] that they are scheduled for 1000 transport today and BLS form completed and POLST attached and on pt chart. CLAUDIA Barber
--- NOTE | 2025-02-22 10:17 | PC.NURSE ---
Pt discharged to [facility] in [place] at 1005, pt left the floor in stretcher accompanied by ambulance crew. Discharge instructions and med list included with discharge packet for facility. Report called to Lexii ([phone]) at [phone]. Patient left the floor with all belongings.
== END 2025-02-22 10:15 | disposition hospice, home (50) | DRG 641 ==
LOC: ED 18:01 → AC 18:29
PROVIDERS: Pharmacist Pharmacist Clinician (PhC)/ Clinical Pharmacy Specialist; Admitting Provider Family Medicine; Emergency Provider Family Medicine; PCP Family Medicine; Referring Provider Family Medicine; Visit Provider Family Medicine
DX: E87.6 Hypokalemia (principal); R55 Syncope and collapse; Z66 Do not resuscitate; I10 Essential (primary) hypertension; F03.C0 Unspecified dementia, severe, without behavioral disturbance, psychotic disturbance, mood disturbance, and anxiety; I35.0 Nonrheumatic aortic (valve) stenosis; G89.4 Chronic pain syndrome; E66.9 Obesity, unspecified; Z68.24 Body mass index [BMI] 24.0-24.9, adult; M15.9 Polyosteoarthritis, unspecified; Z96.643 Presence of artificial hip joint, bilateral; Z82.49 Family history of ischemic heart disease and other diseases of the circulatory system; K21.9 Gastro-esophageal reflux disease without esophagitis
CPT/HCPCS: 36415; 70450; 71275; 72125; 74177; 80048; 80053; 80305; 80320; 81015; 82550; 82962; 83605; 83690; 83735; 84145; 84484; 85025; 85610; 85730; 86850; 86900; 86901; 87040; 90471; 93005; 93306; 96361; 96365; 96366; 99239; 99284; 99285; 90715; J1650; Q9967